=== PATIENT | male | born 1980 | race African-American/Black ===

== ENCOUNTER 2019-10-17 11:50 | Emergency (ER) | payer BC, SELFPAY ==
[2019-10-17 11:50] VITALS: BP 90/69; PULSE 93; RESP 18; TEMP 36.4; O2SAT 97; BMI 33.8
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
[2019-10-17] MEDS: Ibuprofen 600 MG Tablet PO (12:51)
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
[2019-10-17 14:37] VITALS: BP 122/66; PULSE 92; RESP 18; O2SAT 98
== END 2019-10-17 14:38 | disposition home or self-care (01) ==
PROVIDERS: Emergency Provider Emergency Medicine; Family Provider Internal Medicine; PCP Internal Medicine
DX: S02.32XA Fracture of orbital floor, left side, initial encounter for closed fracture (principal); Y04.2XXA Assault by strike against or bumped into by another person, initial encounter; Y93.89 Activity, other specified; Z87.891 Personal history of nicotine dependence
CPT/HCPCS: 70486; 99283

== ENCOUNTER 2022-02-01 20:08 | Emergency (ER) | payer BC, SELFPAY ==
[2022-02-01 20:09] VITALS: BP 113/59; PULSE 111; RESP 18; TEMP 36.8; O2SAT 91; BMI 34.0
[2022-02-01 20:19] VITALS: BP 113/59; PULSE 111; RESP 18; TEMP 36.8; O2SAT 91
--- NOTE | 2022-02-01 20:44 | EKG12_ITS ---
Test Reason : DYSRHYTHMIA Blood Pressure : / mmHG Vent. Rate : 101 BPM Atrial Rate : 101 BPM P-R Int : 140 ms QRS Dur : 082 ms QT Int : 366 ms P-R-T Axes : 019 029 004 degrees QTc Int : 474 ms Sinus tachycardia Nonspecific T wave abnormality Abnormal ECG Confirmed by AMI ROBINS, ANIYA ([id number]), editorial clerk LILA AMBRIZ ([id number]) on 02/04/2022 11:00:51 AM Referred By: TL Confirmed By:ANIYA MUELLER MD
--- NOTE | 2022-02-01 20:45 | EDS_ITS ---
HPI <Dr. Wallace Mathew DO - Last Filed: 02/04/22 15:10> History of Present Illness Chief Complaint: General Illness Informant: patient Narrative Narrative: Patient here with significant other 1 week history fever myalgia's initial cough a week ago. Today shortness of breath with exertion. 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 No leg swelling or pain. Been using Tylenol last dose was 2 hours ago. No vomiting or diarrhea. No loss of taste or smell. Nonvaccinated for Covid. No influenza vaccination this year or in the past. Remote tobacco history. Denies any daily medications. He is allergic to shellfish stating causing swelling in the throat. Nondiabetic. PFSH <Dr. Wallace Mathew DO - Last Filed: 02/04/22 15:10> PFSH Medical History no medical history Home Medications NK 02/01/22 [History Last Taken Unknown] Allergy/AdvReac Type Severity Reaction Status Date / Time shellfish derived Allergy Severe Angioedema Verified 02/01/22 20:14 Surgical History no surgical history Social History Smoking Status: Former smoker ROS <Dr. Wallace Mathew DO - Last Filed: 02/04/22 15:10> ROS ED Constitutional Constitutional ED: Reports fever(s); Denies chills or sweats Eyes Eyes: Denies change in vision ENT ENT ED: Denies dysphagia or sore throat Cardiovascular Cardiovascular: Denies chest pain, leg edema, palpitations or racing heartbeat Respiratory/Chest Respiratory/Chest: Reports dyspnea and dyspnea on exertion; Denies cough Gastrointestinal Gastrointestinal: Denies abdominal pain, diarrhea, nausea or vomiting Genitourinary Genitourinary ED: Denies dysuria, hematuria or urinary frequency Musculoskeletal Musculoskeletal: Reports myalgias; Denies back pain, extremity pain or neck pain Integumentary Denies rash or wounds Neurologic Neurologic: Denies headache(s), paresthesias or weakness EXAM <Dr. Wallace Mathew DO - Last Filed: 02/04/22 15:10> Physical Exam Const Vital Signs: 02/01/22 20:09 02/01/22 20:19 02/01/22 20:23 Temperature 98.3 F 98.3 F Temperature Source Temporal Temporal Pulse Rate 111 H 111 H Respiratory Rate 18 18 Respiratory Effort Short of Breath Respiratory Pattern Normal Blood Pressure 113/59 L 113/59 L Blood Pressure Mean 77 77 Pulse Ox 91 91 Oxygen Delivery Method Room Air Room Air 02/01/22 21:14 02/02/22 01:03 Temperature 98 F Temperature Source Temporal Pulse Rate 94 98 Respiratory Rate 21 H 15 Respiratory Effort Respiratory Pattern Blood Pressure 122/78 H Blood Pressure Mean 92 Pulse Ox 92 92 Oxygen Delivery Method Room Air Room Air Positive well nourished and well developed General Appearance ED: well developed and NAD HEENT Reports moist mucous membranes normocephalic and atraumatic Eyes PERRL, EOMs intact bilaterally and conjunctivae normal General Eye ED: Yes normal appearance of both eyes Neck no lymphadenopathy and supple General: Negative for tenderness Chest Wall Chest: Negative for tenderness Resp normal respiratory effort and normal air movement Effort and Inspection: symmetric chest movement; Negative for respiratory distress Cardio regular rhythm and no murmurs Rate: tachycardic Peripheral Pulses: pulses 2+ throughout GI normal to inspection, nondistended, normoactive bowel sounds and non-tender Palpation: Negative for guarding or rebound tenderness present Back/Spine no CVA tenderness and no thoracic nor lumbar tenderness Extremity normal to inspection General Extremety ED: Negative for edema or tenderness General Extremity: Negative for edema Neuro oriented x3 and no sensory deficits noted Sensorium / Orientation: awake and alert Skin no rashes or lesions noted and no wounds <Dr. Adolfo Chong MD - Last Filed: 02/02/22 02:23> Physical Exam Const Vital Signs: 02/01/22 20:09 02/01/22 20:19 02/01/22 20:23 Temperature 98.3 F 98.3 F Temperature Source Temporal Temporal Pulse Rate 111 H 111 H Respiratory Rate 18 18 Respiratory Effort Short of Breath Respiratory Pattern Normal Blood Pressure 113/59 L 113/59 L Blood Pressure Mean 77 77 Pulse Ox 91 91 Oxygen Delivery Method Room Air Room Air 02/01/22 21:14 02/02/22 01:03 Temperature 98 F Temperature Source Temporal Pulse Rate 94 98 Respiratory Rate 21 H 15 Respiratory Effort Respiratory Pattern Blood Pressure 122/78 H Blood Pressure Mean 92 Pulse Ox 92 92 Oxygen Delivery Method Room Air Room Air MDM <Dr. Wallace Mathew DO - Last Filed: 02/04/22 15:10> [facility] MDM Narrative Medical decision making narrative: Patient tachycardic on arrival EKG sinus tachycardia. Reports flulike symptoms for the past week exertional dyspnea today. Denies chest pains. 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 I did pretreat him with Benadryl and Solu-Medrol due to shellfish allergy causing throat swelling. Lab work-up white count 2.7 creatinine 1.26 potassium 3.4 sodium 132 D-dimer returned elevated at 1.36. Rapid Covid testing returned negative. Influenza pending. My wet read reviewed notes multilobar pneumonia changes. Did not appreciate any PE however this is pending read by radiology. With multi lobar infiltrative changes I did send for PCR. His pulse ox trended anywhere from 89 to 92% on reevaluation. Awaiting final CTA read along with PCR to help with disposition. He is in no acute respiratory distress currently. Patient be signed out to night physician. Lab Data Attestation: I reviewed the patient's lab results. Labs: Laboratory Results - last 24 hr 02/01/22 02/01/22 02/01/22 21:00 21:00 21:00 WBC 2.7 L RBC 4.44 L Hgb 13.0 Hct 37.2 L MCV 83.8 MCH 29.3 MCHC 34.9 RDW Std Deviation 38.9 RDW Coeff of Wes 12.8 Plt Count 118 L MPV 9.7 Immature Gran % (Auto) 0.800 Neut % (Auto) 74.3 H Lymph % (Auto) 18.5 L [place] % (Auto) 6.4 Eos % (Auto) 0.0 Baso % (Auto) 0.0 Absolute Neuts (auto) 2.0 Absolute Lymphs (auto) 0.49 L Nucleated RBC % 0 Differential Comment SEE COMMENT Diff Path Review May foll Platelet Estimate SLT DEC RBC Morphology NORM C+C Anisocytosis RARE PT 13.8 INR 1.1 APTT 34.3 D-Dimer Quant (PE/DVT) 1.36 H* Sodium 132 L Potassium 3.4 L Chloride 101 Carbon Dioxide 25.0 Anion Gap 6 BUN 10 Creatinine 1.26 Estim Creat Clear Calc 75.59 Est GFR (MDRD) Af Amer 80 Est GFR (MDRD) Non-Af 66 BUN/Creatinine Ratio 7.9 L Glucose 113 H Calcium 8.1 L Total Bilirubin 0.60 AST 251 H ALT 90 H Alkaline Phosphatase 47 Total Protein 7.1 Albumin 3.3 Globulin 3.8 Albumin/Globulin Ratio 0.9 COVID-19 (ANDREI) 02/01/22 22:25 WBC RBC Hgb Hct MCV MCH MCHC RDW Std Deviation RDW Coeff of Wes Plt Count MPV Immature Gran % (Auto) Neut % (Auto) Lymph % (Auto) [place] % (Auto) Eos % (Auto) Baso % (Auto) Absolute Neuts (auto) Absolute Lymphs (auto) Nucleated RBC % Differential Comment Diff Path Review Platelet Estimate RBC Morphology Anisocytosis PT INR APTT D-Dimer Quant (PE/DVT) Sodium Potassium Chloride Carbon Dioxide Anion Gap BUN Creatinine Estim Creat Clear Calc Est GFR (MDRD) Af Amer Est GFR (MDRD) Non-Af BUN/Creatinine Ratio Glucose Calcium Total Bilirubin AST ALT Alkaline Phosphatase Total Protein Albumin Globulin Albumin/Globulin Ratio COVID-19 (ANDREI) Detected Radiography Diagnostic Testing: Clinical Impression(s) from Imaging Studies Chest CTA 02/01/22 21:55 IMPRESSION: Bilateral multilobar pneumonia with reactive mediastinal and hilar adenopathy. Electronically Signed: Bo Johnson MD at 22:42 EST , EKG Initial EKG: Attestation: I personally reviewed and interpreted this EKG as follows: Comments: Sinus rate of 101, no ST changes isolated T wave version leads III. Nonspecific. <Dr. Adolfo Chong MD - Last Filed: 02/02/22 02:23> [facility] Narrative Medical decision making narrative: Patient checked out to me. His influenza swab was not done correctly so that was repeated and negative. His rapid Covid was negative. His CTA showed bilateral patchy bibasilar infiltrates/pneumonitis without pulmonary embolus or any other acute abnormality. There is mediastinal lymphadenopathy to go with the infiltrates. His PCR for Covid returned positive. Therefore he does not require antibiotics for this, his leukopenia is consistent with Covid as are the clear lungs that the previous physician documented. Patient has been doing very well. He had one episode under Dr. Mathew's care where he transiently apparently desatted to 89%. Throughout the rest of his ED visit under my care, he was at 96-97%. We walked him down the hallway with an N95 on. He did not become dyspneic and did not have oxygen saturations below 93%. He feels relatively good. Therefore do not think he needs to be discharged home with oxygen or steroids which would not be indicated if he is not on oxygen. However with his BMI at 34 and he is on day #7 of illness, he is a candidate for Sotrovimab. He has a pulse oximeter at home. Referred for monoclonal antibody infusion therapy, advised to continue watching his pulse ox and given reasons to return. Discussed with he and his they are comfortable with that plan. Lab Data Attestation: I reviewed the patient's lab results. Labs: Laboratory Results - last 24 hr 02/01/22 02/01/22 02/01/22 21:00 21:00 21:00 WBC 2.7 L RBC 4.44 L Hgb 13.0 Hct 37.2 L MCV 83.8 MCH 29.3 MCHC 34.9 RDW Std Deviation 38.9 RDW Coeff of Wes 12.8 Plt Count 118 L MPV 9.7 Immature Gran % (Auto) 0.800 Neut % (Auto) 74.3 H Lymph % (Auto) 18.5 L [place] % (Auto) 6.4 Eos % (Auto) 0.0 Baso % (Auto) 0.0 Absolute Neuts (auto) 2.0 Absolute Lymphs (auto) 0.49 L Nucleated RBC % 0 Differential Comment SEE COMMENT Diff Path Review May foll Platelet Estimate SLT DEC RBC Morphology NORM C+C Anisocytosis RARE PT 13.8 INR 1.1 APTT 34.3 D-Dimer Quant (PE/DVT) 1.36 H* Sodium 132 L Potassium 3.4 L Chloride 101 Carbon Dioxide 25.0 Anion Gap 6 BUN 10 Creatinine 1.26 Estim Creat Clear Calc 75.59 Est GFR (MDRD) Af Amer 80 Est GFR (MDRD) Non-Af 66 BUN/Creatinine Ratio 7.9 L Glucose 113 H Calcium 8.1 L Total Bilirubin 0.60 AST 251 H ALT 90 H Alkaline Phosphatase 47 Total Protein 7.1 Albumin 3.3 Globulin 3.8 Albumin/Globulin Ratio 0.9 COVID-19 (ANDREI) 02/01/22 22:25 WBC RBC Hgb Hct MCV MCH MCHC RDW Std Deviation RDW Coeff of Wes Plt Count MPV Immature Gran % (Auto) Neut % (Auto) Lymph % (Auto) [place] % (Auto) Eos % (Auto) Baso % (Auto) Absolute Neuts (auto) Absolute Lymphs (auto) Nucleated RBC % Differential Comment Diff Path Review Platelet Estimate RBC Morphology Anisocytosis PT INR APTT D-Dimer Quant (PE/DVT) Sodium Potassium Chloride Carbon Dioxide Anion Gap BUN Creatinine Estim Creat Clear Calc Est GFR (MDRD) Af Amer Est GFR (MDRD) Non-Af BUN/Creatinine Ratio Glucose Calcium Total Bilirubin AST ALT Alkaline Phosphatase Total Protein Albumin Globulin Albumin/Globulin Ratio COVID-19 (ANDREI) Detected Radiography Diagnostic Testing: Clinical Impression(s) from Imaging Studies Chest CTA 02/01/22 21:55 IMPRESSION: Bilateral multilobar pneumonia with reactive mediastinal and hilar adenopathy. Electronically Signed: Bo Johnson MD at 22:42 EST Reading Location ID and State: [address] [place] [address] Tel , Service support , EKG Initial EKG: Attestation: I personally reviewed and interpreted this EKG as follows: Interpretation: No Acute Injury Pattern, Sinus Tachycardia and - (Flattened T waves diffusely) Discharge Plan Triage Chief Complaint: General Illness ED Provider: Wallace Mathew Dx/Rx/DC Orders Clinical Impression: Pneumonia due to 2019 novel coronavirus Instructions: Coronavirus Disease 2019 (COVID-19): Caring for Yourself or Others Prescriptions: No Action NK RF: 0 Other Ambulatory Orders: COVID Outpatient Monoclonal Antibody Referral (Routine) Timeframe: 1 Day Facility: [facility] - Location: [facility] Ordered By: Dr. Adolfo Chong Primary Care Provider: Pedro Owens Referrals: Pedro Owens MD [Primary Care Provider] - Activity Restrictions/Additional Instructions: Try to get a home portable pulse oximeter and closely watch your oxygen levels periodically. If you stay below 90% for more than a minute or so, and/or you are feeling like your breathing is getting worse, return to the emergency department for further evaluation. You are a candidate for monoclonal antibody infusion therapy, see the attached instructions for more information. They will call you concerning when they want you to come to the clinic to get the infusion which is a one-time dose to help protect you from getting more ill and becoming hospitalized with life- threatening illness due to Covid given your risk for worsening. Disposition Disposition: Home, Self Care Discharge Date/Time: 02/02/22 02:34
[2022-02-01] MEDS: DiphenhydrAMINE 50 MG/ML Syringe IV (21:02)
[2022-02-01] MEDS: MethylPREDNISolone 125 MG/2 ML Vial IV (21:02)
[2022-02-01 21:14] VITALS: BP 122/78; PULSE 94; RESP 21; TEMP 36.6; O2SAT 92
[2022-02-01 21:20] LABS: Absolute Lymphocyte Count 0.49 X10^3/uL (0.83-4.51); Hematocrit 37.2 % (40-54); Lymphocyte # 0.49 X10^3/ul (0.83-4.51); Lymphocyte % 18.5 % (19-41); Mean Corp Hgb Conc 34.9 g/dL (32-36); Mean Corpuscular Hgb 29.3 pg (27.0-32.0); Mean Corpuscular Volume 83.8 fL (80-94); Mean Platelet Vol. 9.7 fl (6.2-12.0); Monocyte# 0.17 X10^3/uL; Monocyte% 6.4 % (0-10); NRBC Flagged by Analyzer 0 % (0-5); Neutrophil # 1.97 X10^3/uL (2.7-7.7); Neutrophil % 74.3 % (47-70); POSITIVE DIFFERENTIAL YES; Platelet Count 118 K/mm3 (150-450); RBC Distribution Width CV 12.8 % (11.6-14.6); RBC Distribution Width SD 38.9 fl (35.1-43.9); Red Blood Count 4.44 M/mm3 (4.6-6.2); White Blood Count 2.7 K/mm3 (4.4-11.0)
[2022-02-01 21:22] LABS: Differential Indicated SCAN CRITERIA MET
[2022-02-01 21:30] LABS: International Normalized Ratio 1.1; Prothrombin Time (Protime)PT. 13.8 SECONDS (11.7-14.9)
[2022-02-01 21:31] LABS: Partial Thromboplast Time 34.3 Seconds (24.1-36.2)
[2022-02-01 21:44] LABS: Platelet Estimate SLT DEC (ADEQ)
[2022-02-01 21:45] LABS: ALB/GLOB Ratio 0.9 RATIO (0.9-2.4); AST(SGOT) 251 U/L (15-37); Alanine Aminotransfer ALT/SGPT 90 U/L (16-61); Albumin, Serum 3.3 g/dL (3.2-5.0); Alkaline Phosphatase 47 U/L (45-117); Anion Gap 6 (5-15); BUN 10 mg/dL (7-18); BUN/Creat Ratio 7.9 RATIO (10-20); Calcium,Total 8.1 mg/dL (8.5-10.1); Chloride 101 mmol/L (98-107); Creatinine, Serum 1.26 mg/dL (0.70-1.30); EST Glomerular Filtration Rate 66 mL/min (>60); Est Glom Filt Rate - Afr Amer 80 mL/min (>60); Estimated Creatinine Clearance 75.59 ml/min; Globulin 3.8 g/dL (2.2-4.2); Glucose 113 mg/dL (74-106); Potassium 3.4 mmol/L (3.5-5.1); Protein, Total 7.1 g/dL (6.4-8.2); Sodium Level 132 mmol/L (136-145)
[2022-02-01 21:47] LABS: Anisocytosis RARE; Red Cell Morphology NORM C+C NORMAL (NORM C&C)
[2022-02-01 21:52] LABS: D-Dimer Quantitative (DVT/PE) 1.36 FEU/ug/m (0.27-0.49)
--- NOTE | 2022-02-01 21:55 | CT_ITS ---
EXAM: CT ANGIOGRAPHY CHEST WITHOUT AND WITH INTRAVENOUS CONTRAST CLINICAL INDICATION: dyspnea TECHNIQUE: Helically acquired angiography images were obtained of the chest without and with intravenous contrast. CTDIvol = ( 14.89 ) mGy, DLP = ( 520.13 ) mGycm This CT exam was performed using one or more of the following dose reduction techniques: automated exposure control, adjustment of the mA and/or kV according to patient size, and/or use of iterative reconstruction technique. This report was created using [employer] report generation technology. MIP reconstructed images were created and reviewed. CONTRAST: IV 100mL [id number] COMPARISON: None. FINDINGS: PULMONARY ARTERIES: Unremarkable. Normal in caliber. No evidence of pulmonary embolism. AORTA: Unremarkable. Normal in caliber. No evidence of dissection. GREAT VESSELS OF AORTIC ARCH: Unremarkable. Normal in caliber. No evidence of dissection. LUNGS AND PLEURAL SPACES: Bilateral multilobar pneumonia. No mass. No pleural effusion or thickening. HEART: Unremarkable. Heart size is normal. No pericardial effusion. No signs of right heart strain, ratio of right ventricle to left ventricle measures less than 1. MEDIASTINUM: Reactive mediastinal and hilar adenopathy. Esophagus is unremarkable. No hiatal hernia. THYROID: Unremarkable. No thyroid lesions. BONES/JOINTS: Unremarkable. No suspicious lytic or blastic abnormality. CT/CTA Chest W/WO Contrast IMPRESSION: Bilateral multilobar pneumonia with reactive mediastinal and hilar adenopathy. Electronically Signed: Bo Johnson MD at 22:42 EST ,
[2022-02-02 01:03] VITALS: PULSE 98; RESP 15; O2SAT 92
[2022-02-02 01:45] VITALS: O2SAT 97
[2022-02-02 02:33] VITALS: BP 134/78; PULSE 91; RESP 20; O2SAT 95
[2022-02-05 10:17] LABS: Pathologist Review Reviewed
== END 2022-02-02 02:34 | disposition home or self-care (01) ==
PROVIDERS: Emergency Provider Emergency Medicine; PCP Internal Medicine; Visit Provider Emergency Medicine
DX: U07.1 COVID-19 (principal); J12.82 Pneumonia due to coronavirus disease 2019; Z87.891 Personal history of nicotine dependence
CPT/HCPCS: 71275; 80053; 85025; 85379; 85610; 85730; 87426; 87635; 87804; 93005; 96361; 96374; 96375; 99285; J7030; Q9967; U0003; U0005

== ENCOUNTER 2022-02-04 20:38 | Inpatient (IN) | payer BC, SELFPAY ==
[2022-02-04 20:40] VITALS: BP 126/66; PULSE 112; RESP 18; TEMP 36.4; O2SAT 95; BMI 34.0
[2022-02-04 20:51] VITALS: O2SAT 77
[2022-02-04 20:56] VITALS: O2SAT 95
[2022-02-04 20:58] VITALS: O2SAT 77
--- NOTE | 2022-02-04 21:30 | RAD_ITS ---
STUDY: X-RAY CHEST REASON FOR EXAM: Male, 41 years old. CHEST PAIN PT WAS DX WITH COVID, INCREASED SOB AND HOME PULSE OX STATED HIS PULSE OX WAS LOW covid TECHNIQUE: XR Chest 1 View COMPARISON: Prior comparison studies are not available for review at this time. FINDINGS: There is no demonstrated pleural abnormality. There is bilateral infiltrate. There is an elevated right hemidiaphragm. Normal size heart. Normal mediastinum and benita. Normal visualized pulmonary arteries. There is atherosclerotic calcification of the aortic arch with tortuosity. There are diffuse degenerative changes of the visualized thoracic spine. There is degenerative osteoarthritis of the bilateral shoulders. There is no demonstrated abnormality of the visualized soft tissue structures of the upper abdomen. RAD/Chest 1 View (Portable) IMPRESSION: There is bilateral infiltrate. Electronically Signed: Sebastian Rudd MD at 21:44 EST ,
--- NOTE | 2022-02-04 21:32 | ED.VIS.DYS ---
HPI <Dr. Eder Loco MD - Last Filed: 02/06/22 09:19> History of Present Illness Chief Complaint: Shortness of Breath Informant: patient and spouse/S.O. Narrative Narrative: Patient came in today because he got an O2 sat device. When he walked around it was reading down in the 70s. He is on day 12 of Covid symptoms. He states he is not worsening but is not improving. He was seen here about 3 or 4 days ago. He was not hypoxic at the time so was not started on steroids. He did call about monoclonal therapy but they stated that he was not a candidate likely due to timing. He has not been vaccinated. 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 He has no family history. He has no leg pain or swelling. He has no chest pain. He has no hemoptysis. He did have a CTA on his prior visit. What really prompted the visit is when his oxygen level dropped so low after getting his saturation monitor today. Patient has no chronic conditions other than GERD. medications pantoprazole Allergy to selfish No recent surgeries Former smoker, works full-time [facility] <Dr. Eder Loco MD - Last Filed: 02/06/22 09:19> [facility] Medical History Former smoker GERD (gastroesophageal reflux disease) LILIBETH (obstructive sleep apnea) Home Medications pantoprazole [Protonix] 40 mg PO DAILY 02/05/22 [History Last Taken Unknown] Allergy/AdvReac Type Severity Reaction Status Date / Time shellfish derived Allergy Severe Angioedema Verified 02/01/22 20:14 Social History Smoking Status: Former smoker ROS <Dr. Eder Loco MD - Last Filed: 02/06/22 09:19> ROS ED Constitutional Constitutional ED: Reports chills and fever(s) Eyes Eyes: Denies blurry vision or change in vision ENT ENT ED: Denies rhinorrhea or sore throat Cardiovascular Cardiovascular: Denies chest pain or palpitations Respiratory/Chest Respiratory/Chest: Reports cough and dyspnea; Denies sputum Gastrointestinal Gastrointestinal: Reports other Details: Mild decrease in appetite but he is able to eat and drink well. ; Denies abdominal pain, diarrhea, nausea or vomiting Genitourinary Genitourinary ED: Denies dysuria Musculoskeletal Musculoskeletal: Reports myalgias Integumentary Denies rash Neurologic Neurologic: Reports headache(s); Denies paresthesias or weakness Psychiatric Psychiatric: Reports anxiety Endocrine Endocrinology: Denies polydipsia or polyuria Hematologic/Lymphatic Hematologic/Lymphatic: Denies easy bruising Allergic/Immunologic Allergic/Immunologic ED: Denies urticaria EXAM <Dr. Eder Loco MD - Last Filed: 02/06/22 09:19> Physical Exam Const Vital Signs: 02/04/22 20:40 02/04/22 20:51 02/04/22 20:56 Temperature 97.5 F L Temperature Source Temporal Pulse Rate 112 H Respiratory Rate 18 Respiratory Effort Short of Breath Respiratory Depth Normal Respiratory Pattern Normal Blood Pressure 126/66 H Blood Pressure Mean 86 Pulse Ox 95 95 Oxygen Delivery Method Room Air Room Air Nasal Cannula Oxygen Flow Rate (L/min) Fraction of Inspired Oxygen (FIO2) 6 02/04/22 20:58 02/04/22 22:47 02/05/22 00:00 Temperature Temperature Source Pulse Rate 105 H Respiratory Rate 17 17 Respiratory Effort Respiratory Depth Respiratory Pattern Blood Pressure 120/65 Blood Pressure Mean 83 Pulse Ox 77 94 Oxygen Delivery Method Room Air Nasal Cannula Room Air Oxygen Flow Rate (L/min) 4 Fraction of Inspired Oxygen (FIO2) Positive well nourished and well developed Constitutional Narrative: Considering his history, I expected this patient to look ill when I walked in the room. However, the patient actually looks quite good. He is comfortable. His breathing is nonlabored. Carries on a normal conversation. He is not toxic at all. General Appearance ED: well developed and NAD HEENT Reports moist mucous membranes atraumatic Eyes General Eye ED: Negative for pale conjunctiva Neck no meningeal signs and no JVD Resp normal respiratory effort Resp Narrative: Breathing well on 6 L is normal. I turned him down to 4 while I was in the room. He stayed at 94 to 96%. Were turning him down to 2 to see how he does. When he first walked in, he was 77% but came up quickly on oxygen. He does have some coarse breath sounds bilaterally consistent with typical findings on Covid exam Auscultation: rhonchi; Negative for wheezes Cardio regular rate, regular rhythm and no murmurs GI non-tender Palpation: soft Back/Spine normal to inspection Extremity normal to inspection Extremity Narrative: No tenderness, cords, edema, asymmetry or distended veins. General Extremety ED: Negative for edema or tenderness General Extremity: Negative for edema Neuro Sensorium / Orientation: alert Psych mental status grossly normal Skin Rashes: no rashes <Dr. Terrence Domingo DO - Last Filed: 02/05/22 00:55> Physical Exam Const Vital Signs: 02/04/22 20:40 02/04/22 20:51 02/04/22 20:56 Temperature 97.5 F L Temperature Source Temporal Pulse Rate 112 H Respiratory Rate 18 Respiratory Effort Short of Breath Respiratory Depth Normal Respiratory Pattern Normal Blood Pressure 126/66 H Blood Pressure Mean 86 Pulse Ox 95 95 Oxygen Delivery Method Room Air Room Air Nasal Cannula Oxygen Flow Rate (L/min) Fraction of Inspired Oxygen (FIO2) 6 02/04/22 20:58 02/04/22 22:47 02/05/22 00:00 Temperature Temperature Source Pulse Rate 105 H Respiratory Rate 17 17 Respiratory Effort Respiratory Depth Respiratory Pattern Blood Pressure 120/65 Blood Pressure Mean 83 Pulse Ox 77 94 Oxygen Delivery Method Room Air Nasal Cannula Room Air Oxygen Flow Rate (L/min) 4 Fraction of Inspired Oxygen (FIO2) MDM <Dr. Eder Loco MD - Last Filed: 02/06/22 09:19> MDM MDM Narrative Medical decision making narrative: We tried walking the patient on 4 L. He desatted to about 81%. However even on room air he is normal saturations just sitting in bed. He is not having chest pain. No hemoptysis. No history of DVT or PE. He had a CTA just several days ago. I will redo some blood work here. I did look at his x-ray that shows bilateral infiltrative process consistent with Covid. I believe this patient has progression of disease. He is unvaccinated with positive Covid PCR with some mild progressive hypoxia. He overall looks surprisingly well. I did discuss case with the hospitalist. Because of his decreased saturations he will have to come in the hospital. Because of his significant worsening in O2 sats, it was requested to do CTA to look for progression or new disease or pulmonary embolus. Patient is turned over to oncoming physician pending the study but the plan is already to admit him and hospitalist team has seen him. Lab Data Attestation: I reviewed the patient's lab results. Labs: Laboratory Results - last 24 hr 02/04/22 02/04/22 22:44 22:44 WBC 4.1 L RBC 4.63 Hgb 13.2 Hct 39.5 L MCV 85.3 MCH 28.5 MCHC 33.4 RDW Std Deviation 41.6 RDW Coeff of Wes 13.3 Plt Count 149 L MPV 9.2 Immature Gran % (Auto) 1.200 H Neut % (Auto) 77.1 H Lymph % (Auto) 15.4 L [place] % (Auto) 6.3 Eos % (Auto) 0.0 Baso % (Auto) 0.0 Absolute Neuts (auto) 3.2 Absolute Lymphs (auto) 0.63 L Nucleated RBC % 0 Sodium 134 L Potassium 3.6 Chloride 101 Carbon Dioxide 25.0 Anion Gap 8 BUN 13 Creatinine 1.05 Estim Creat Clear Calc 90.71 Est GFR (MDRD) Af Amer 99 Est GFR (MDRD) Non-Af 82 BUN/Creatinine Ratio 12.4 Glucose 99 Calcium 8.0 L Troponin I High Sens 9 Radiography Diagnostic Testing: Clinical Impression(s) from Imaging Studies Chest X-Ray 02/04/22 21:30 IMPRESSION: There is bilateral infiltrate. Electronically Signed: Sebastian Rudd MD at 21:44 EST , Chest CTA 02/04/22 23:20 IMPRESSION: 1. No CTA demonstrated pulmonary embolism or arterial dissection. 2. Multifocal pneumonia. Electronically Signed: Kassandra Limon MD at 0:49 EST , EKG Initial EKG: Comments: EKG done for dyspnea read by me shows sinus rhythm with tachycardic rate at 111. No ventricular ectopy. Diffuse nonspecific ST and T wave change but no sign of infarct or ischemia. KS interval, QRS duration and QTc normal. EKG is similar to prior of 01 February 2022. <Dr. Terrence Domingo, DO - Last Filed: 03/08/22 00:55> MDM MDM Narrative Medical decision making narrative: Patient signed out to me for monitoring as he is pending CT of the chest requested by the hospitalist. This does not show any pulmonary emboli. There is multifocal pneumonia. At this point the patient is stable for admission to the medical floor. Lab Data Attestation: I reviewed the patient's lab results. Labs: Laboratory Results - last 24 hr 02/04/22 02/04/22 22:44 22:44 WBC 4.1 L RBC 4.63 Hgb 13.2 Hct 39.5 L MCV 85.3 MCH 28.5 MCHC 33.4 RDW Std Deviation 41.6 RDW Coeff of Wes 13.3 Plt Count 149 L MPV 9.2 Immature Gran % (Auto) 1.200 H Neut % (Auto) 77.1 H Lymph % (Auto) 15.4 L [place] % (Auto) 6.3 Eos % (Auto) 0.0 Baso % (Auto) 0.0 Absolute Neuts (auto) 3.2 Absolute Lymphs (auto) 0.63 L Nucleated RBC % 0 Sodium 134 L Potassium 3.6 Chloride 101 Carbon Dioxide 25.0 Anion Gap 8 BUN 13 Creatinine 1.05 Estim Creat Clear Calc 90.71 Est GFR (MDRD) Af Amer 99 Est GFR (MDRD) Non-Af 82 BUN/Creatinine Ratio 12.4 Glucose 99 Calcium 8.0 L Troponin I High Sens 9 Radiography Diagnostic Testing: Clinical Impression(s) from Imaging Studies Chest X-Ray 02/04/22 21:30 IMPRESSION: There is bilateral infiltrate. Electronically Signed: Sebastian Rudd MD at 21:44 EST , Chest CTA 02/04/22 23:20 IMPRESSION: 1. No CTA demonstrated pulmonary embolism or arterial dissection. 2. Multifocal pneumonia. Electronically Signed: Kassandra Limon MD at 0:49 EST , Discharge Plan Dx/Rx/DC Orders Clinical Impression: Pneumonia due to 2019 novel coronavirus, Respiratory failure with hypoxia Disposition Disposition: Acute Care Hospital [facility]
[2022-02-04 21:57] VITALS: O2SAT 94
--- NOTE | 2022-02-04 21:58 | ED.RN ---
attempt to d/c patient on o2. pt was 90% without 02 while at rest. pt was 85% with extertion. pt dropped to 81% while on 4 Liters o2 with exertion. results discussed with dr ye. skyla brewer rn [id number]
--- NOTE | 2022-02-04 22:15 | EKG12_ITS ---
Test Reason : SOB Blood Pressure : / mmHG Vent. Rate : 111 BPM Atrial Rate : 111 BPM P-R Int : 126 ms QRS Dur : 084 ms QT Int : 340 ms P-R-T Axes : 023 026 001 degrees QTc Int : 462 ms Sinus tachycardia Nonspecific T wave abnormality Abnormal ECG Confirmed by AMI ROBINS, ANIYA ([id number]), newspaper editor LILA AMBRIZ ([id number]) on 02/05/2022 10:00:04 AM Referred By: PL Confirmed By:ANIYA MUELLER MD
[2022-02-04 22:47] VITALS: BP 120/65; PULSE 105; RESP 17; O2SAT 94
[2022-02-04] MEDS: dexAMETHasone 4 MG Tablet 6 MG PO (22:47)
[2022-02-04 23:10] LABS: Anion Gap 8 (5-15); BUN 13 mg/dL (7-18); BUN/Creat Ratio 12.4 RATIO (10-20); Chloride 101 mmol/L (98-107); Creatinine, Serum 1.05 mg/dL (0.70-1.30); EST Glomerular Filtration Rate 82 mL/min (>60); Est Glom Filt Rate - Afr Amer 99 mL/min (>60); Estimated Creatinine Clearance 90.71 ml/min; Glucose 99 mg/dL (74-106); Potassium 3.6 mmol/L (3.5-5.1); Sodium Level 134 mmol/L (136-145); Troponin-I HS 9 pg/mL (3.0-78.0)
--- NOTE | 2022-02-04 23:20 | CT_ITS ---
STUDY: CTA CHEST REASON FOR EXAM: Male, 41 years old patient with hypoxia and COVID infection. RADIATION DOSAGE (If Supplied By Facility): CTDIvol = ( 16.63 ) mGy, DLP = ( 512.50 ) mGycm TECHNIQUE: The examination was performed with the intravenous administration of 100 mL of Isovue-370. Post-processing of the angiographic images was performed, with multiplanar reformation and 3D reconstruction. Individualized dose optimization techniques were used for this CT. COMPARISON: CTA of the chest dated 02/01/2022. FINDINGS: Normal enhancement of the main pulmonary artery and right and left pulmonary arteries. There is limited enhancement of the bilateral peripheral pulmonary arteries. There is no demonstrated pulmonary embolism. There is prominence of the main pulmonary arteries with peripheral pulmonary vascular congestion. Normal thoracic aorta and visualized great vessels. There is no demonstrated aortic dissection. Normal heart and pericardium. There are enlarged subcarinal lymph nodes with the milagro mass measuring 4.5 x 3.0 x 1.8 cm. There are multiple enlarged left-sided hilar lymph nodes. Normal visualized trachea and bronchi. The lungs are well expanded. There are multilevel areas of airspace consolidation throughout both lungs consistent with multifocal pneumonia. This appears to have worsened since the previous CT. Normal pleura. Normal chest wall structures. Normal osseous structures. Normal visualized upper abdomen. CT/CTA Chest W/WO Contrast IMPRESSION: 1. No CTA demonstrated pulmonary embolism or arterial dissection. 2. Multifocal pneumonia. Electronically Signed: Kassandra Limon MD at 0:49 EST ,
[2022-02-04 23:36] LABS: Absolute Lymphocyte Count 0.63 X10^3/uL (0.83-4.51); Absolute Neutrophil Count 3.2 X10^3/uL (2.0-7.7); Hematocrit 39.5 % (40-54); Hemoglobin 13.2 g/dL (13.0-16.5); Lymphocyte # 0.63 X10^3/ul (0.83-4.51); Lymphocyte % 15.4 % (19-41); Mean Corp Hgb Conc 33.4 g/dL (32-36); Mean Corpuscular Hgb 28.5 pg (27.0-32.0); Mean Corpuscular Volume 85.3 fL (80-94); Mean Platelet Vol. 9.2 fl (6.2-12.0); Monocyte# 0.26 X10^3/uL; Monocyte% 6.3 % (0-10); NRBC Flagged by Analyzer 0 % (0-5); Neutrophil # 3.16 X10^3/uL (2.7-7.7); Neutrophil % 77.1 % (47-70); POSITIVE MORPHOLOGY YES; Platelet Count 149 K/mm3 (150-450); RBC Distribution Width CV 13.3 % (11.6-14.6); RBC Distribution Width SD 41.6 fl (35.1-43.9); Red Blood Count 4.63 M/mm3 (4.6-6.2); White Blood Count 4.1 K/mm3 (4.4-11.0)
[2022-02-04 23:42] LABS: Differential Indicated SCAN CRITERIA MET
--- NOTE | 2022-02-04 23:43 | PCM.HP.STD ---
Documented by User: ARCELIA Mondragon 02/04/22 23:55 HPI - General General Date of Admission: 02/04/22 Date of Service: 02/04/22 Chief Complaint: Covid 19 HPI Narrative AMIRA COELHO, is a 41 M who presents with complaints of increasing shortness of breath. Patient was seen in the ER approximately 3 days ago for a 1 week history of myalgias, fever and onset of shortness of breath with exertion. At that time he was diagnosed with COVID-19 and was sent home as patient was not hypoxic at that time. Patient represents to the ER tonight stating that he obtained a pulse ox following his last ER visit and was noted to be in the 60s to 70% SPO2 range at home. Patient was 77% on room air upon arrival to ER and was placed on oxygen. Patient currently on 4 L nasal cannula oxygen, O2 sat 94% however patient does desat frequently and rapidly with exertion. Patient is day 12 from onset of symptoms and is unvaccinated against Covid. Patient did receive dexamethasone 6 mg x 1 in ER. Patient reports acid reflux and obstructive sleep apnea is his only medical history. [facility] Medical History Former smoker GERD (gastroesophageal reflux disease) LILIBETH (obstructive sleep apnea) Home Medications NK 02/01/22 [History Last Taken Unknown] Allergy/AdvReac Type Severity Reaction Status Date / Time shellfish derived Allergy Severe Angioedema Verified 02/01/22 20:14 Surgical History no surgical history no surgical history Social History Smoking Status: Former smoker ROS Constitutional Constitutional: Reports chills, fever(s) and malaise; Denies anorexia, fatigue or weakness Cardiovascular Cardiovascular: Denies chest pain, edema, palpitations or syncope Respiratory/Chest Respiratory/Chest: Reports cough, dyspnea on exertion, shortness of breath with exertion and tachypnea Gastrointestinal Gastrointestinal: Denies abdominal pain, constipation, diarrhea, nausea or vomiting Genitourinary Genitourinary: Denies dysuria Musculoskeletal Musculoskeletal: Denies back pain, extremity pain, joint pain or joint stiffness Integumentary Integumentary: Denies dry skin Neurologic Neurologic: Denies abnormal gait, abnormal speech, confusion, dizziness or focal weakness Psychiatric Psychiatric: Denies anxiety or depression Endocrine Endocrinology: Denies change in body appearance Hematologic/Lymphatic Hematologic/Lymphatic: Denies anemia Vital Signs Vital Signs Vital Signs: 02/04/22 20:40 02/04/22 20:51 02/04/22 20:56 Temperature 97.5 F L Temperature Source Temporal Pulse Rate 112 H Respiratory Rate 18 Respiratory Effort Short of Breath Respiratory Depth Normal Respiratory Pattern Normal Blood Pressure 126/66 H Blood Pressure Mean 86 Pulse Ox 95 95 Oxygen Delivery Method Room Air Room Air Nasal Cannula Oxygen Flow Rate (L/min) Fraction of Inspired Oxygen (FIO2) 6 02/04/22 20:58 02/04/22 22:47 Temperature Temperature Source Pulse Rate 105 H Respiratory Rate 17 Respiratory Effort Respiratory Depth Respiratory Pattern Blood Pressure 120/65 Blood Pressure Mean 83 Pulse Ox 77 94 Oxygen Delivery Method Room Air Nasal Cannula Oxygen Flow Rate (L/min) 4 Fraction of Inspired Oxygen (FIO2) Weight Weight: 230 lb Body Mass Index (BMI) 34.0 Physical Exam Const alert, oriented x3 and no apparent distress General Appearance: cooperative HEENT normocephalic and head/scalp atraumatic Eyes conjunctivae normal and no scleral icterus Neck no lymphadenopathy and supple General: trachea midline Resp normal respiratory effort and normal air movement Effort and Inspection: able to speak in complete sentences and symmetric chest movement Auscultation: diminished lung sounds Cardio regular rate, regular rhythm, S1 normal heart sound, S2 normal heart sound and peripheral pulses 2+ throughout Rate: tachycardic GI normal to inspection, nondistended, normoactive bowel sounds, soft to palpation and non-tender Extremity normal capillary refill and no clubbing, cyanosis or edema General Extremity: no tenderness to palpation of joints or extremities Skin General Skin Exam: no breakdown and turgor normal Lesions: no lesions Rashes: no rashes Neuro no focal motor deficits and no sensory deficits noted Speech: speech normal Motor Exam: Negative for general weakness Psych thought process normal, cooperative and affect normal Appearance: appropriate Results Lab / Micro Data Result Diagrams: 02/05/22 02:30 02/05/22 02:30 Labs: Laboratory Results - last 24 hr 02/04/22 22:44: WBC 4.1 L, RBC 4.63, Hgb 13.2, Hct 39.5 L, MCV 85.3, MCH 28.5, MCHC 33.4, RDW Std Deviation 41.6, RDW Coeff of Wes 13.3, Plt Count 149 L, MPV 9.2, Immature Gran % (Auto) 1.200 H, Neut % (Auto) 77.1 H, Lymph % (Auto) 15.4 L, [place] % (Auto) 6.3, Eos % (Auto) 0.0, Baso % (Auto) 0.0, Absolute Neuts (auto) 3.2, Absolute Lymphs (auto) 0.63 L, Nucleated RBC % 0 02/04/22 22:44: Sodium 134 L, Potassium 3.6, Chloride 101, Carbon Dioxide 25.0, Anion Gap 8, BUN 13, Creatinine 1.05, Estim Creat Clear Calc 90.71, Est GFR (MDRD) Af Amer 99, Est GFR (MDRD) Non-Af 82, BUN/Creatinine Ratio 12.4, Glucose 99, Calcium 8.0 L, Troponin I High Sens 9 Radiology Impression Chest X-Ray 02/04/22 21:30 IMPRESSION: There is bilateral infiltrate. Electronically Signed: Sebastian Rudd MD at 21:44 EST Reading Location ID and State: [facility] / [place] , Service support , Assessment & Plan Assessment/Plan (1) Pneumonia due to 2019 novel coronavirus: (2) Respiratory failure with hypoxia: QUALIFIERS: Chronicity: acute Qualified Code(s): J96.01 - Acute respiratory failure with hypoxia PLAN: 1. Acute respiratory failure with hypoxia secondary to COVID-19 pneumonia -Admit to [facility] -BNP, CPK, CRP, fibrinogen, LDH, procalcitonin ordered -CBC and BMP ordered for a.m. -Oxygen per protocol -Encourage incentive spirometry -Regular diet -Consult pulmonary medicine -Scheduled DuoNeb and as needed albuterol breathing treatments ordered -Covid precautions ordered -Intake and output with daily weights -Dexamethasone IV 6 mg daily -Subcu Lovenox twice daily ordered per protocol 2. GERD -We will continue Protonix p.o. 3. Obstructive sleep apnea -CPAP ordered DVT prophylaxis-subcu Lovenox This patient was seen by Ramandeep Wells NP-C under the supervision of Dr. Mead. 29 minutes spent in clinical coordination of patient's plan of care. Documented by User: Dr. Guru Mead MD 02/05/22 06:53 HPI - General General Date of Admission: 02/04/22 [facility] Medical History Former smoker GERD (gastroesophageal reflux disease) LILIBETH (obstructive sleep apnea) Home Medications NK 02/01/22 [History Last Taken Unknown] Allergy/AdvReac Type Severity Reaction Status Date / Time shellfish derived Allergy Severe Angioedema Verified 02/01/22 20:14 Surgical History no surgical history Social History Smoking Status: Former smoker Results Lab / Micro Data Result Diagrams: 02/05/22 02:30 02/05/22 02:30 Charges/Coding Addendum Addendum: Seen and examined and agree with above assessment and plan
[2022-02-05] VITALS (20 sets, daily range): BP systolic 109–133; BP diastolic 59–72; PULSE 84–113; RESP 16–24; TEMP 36.6–37; O2SAT 87–99; BMI 33.0
[2022-02-05] MEDS: 0.9% Saline Lock 10 ML Syringe IV ×2 (02:02→09:11)
[2022-02-05 02:38] LABS: Absolute Lymphocyte Count 0.38 X10^3/uL (0.83-4.51); Absolute Neutrophil Count 3.4 X10^3/uL (2.0-7.7); Hemoglobin 13.4 g/dL (13.0-16.5); Lymphocyte # 0.38 X10^3/ul (0.83-4.51); Lymphocyte % 9.7 % (19-41); Mean Corp Hgb Conc 34.4 g/dL (32-36); Mean Corpuscular Hgb 28.7 pg (27.0-32.0); Mean Corpuscular Volume 83.5 fL (80-94); Mean Platelet Vol. 9.6 fl (6.2-12.0); Monocyte# 0.15 X10^3/uL; Monocyte% 3.8 % (0-10); NRBC Flagged by Analyzer 0 % (0-5); Neutrophil # 3.36 X10^3/uL (2.7-7.7); POSITIVE DIFFERENTIAL YES; POSITIVE MORPHOLOGY YES; Platelet Count 168 K/mm3 (150-450); RBC Distribution Width CV 13.2 % (11.6-14.6); RBC Distribution Width SD 40.3 fl (35.1-43.9); Red Blood Count 4.67 M/mm3 (4.6-6.2); White Blood Count 3.9 K/mm3 (4.4-11.0)
[2022-02-05 02:45] LABS: Differential Indicated SCAN CRITERIA MET
[2022-02-05 02:59] LABS: BNP,B-Type NATRIURETIC PEPTIDE 8.5 pg/mL (0-100)
[2022-02-05 03:00] LABS: Fibrinogen 646 mg/dl (203-444)
[2022-02-05 03:02] LABS: Procalcitonin 0.25 ng/mL (0.00-0.09)
[2022-02-05 03:03] LABS: Anion Gap 6 (5-15); BUN 13 mg/dL (7-18); BUN/Creat Ratio 11.7 RATIO (10-20); Calcium,Total 8.6 mg/dL (8.5-10.1); Chloride 103 mmol/L (98-107); Creatinine, Serum 1.11 mg/dL (0.70-1.30); EST Glomerular Filtration Rate 77 mL/min (>60); Est Glom Filt Rate - Afr Amer 93 mL/min (>60); Estimated Creatinine Clearance 85.81 ml/min; Glucose 117 mg/dL (74-106); Potassium 4.3 mmol/L (3.5-5.1); Sodium Level 134 mmol/L (136-145)
[2022-02-05 03:47] LABS: CPK Total, Creatine Kinase 1393 U/L (39-308); LDH 743 U/L (87-241)
--- NOTE | 2022-02-05 06:00 | EX.PCM.CONCC ---
Assessment & Plan Assessment/Plan (1) Pneumonia due to 2019 novel coronavirus: PLAN: RECOMMENDATIONS: 1. Wean supplemental oxygen to maintain saturations at or above 90%. 2. Continue Decadron to complete 10 days of therapy. 3. The patient is outside of the window for remdesivir. 4. In light of increasing oxygen requirement and elevated CRP, will start baricitinib. 5. Encourage incentive spirometer use and mobilize patient as tolerated. 6. Initiate nocturnal Pap therapy, given history of LILIBETH. IMPRESSIONS: 1. Shortness of breath with associated hypoxemia secondary to COVID-19 pneumonia The patient presented to the hospital with worsening dyspnea and new onset hypoxemia, which has progressed since his initial hospital admission. The patient is currently outside of the window for remdesivir. He has already been initiated on Decadron, which will be continued to complete 10 days of therapy. Given that the patient has had an increasing oxygen requirement since his admission along with an elevated CRP, will start baricitinib. Continue to wean supplemental oxygen as tolerated for saturations greater than 90%. Encourage incentive spirometer use and mobilize patient as tolerated. 2. History of obstructive sleep apnea/obesity The patient does report a known history of sleep apnea and apparently utilizes Pap therapy on a nightly basis. I did speak with the sleep lab this morning who indicated that his prior sleep study indicated a need for bilevel with a pressure support of 18/12. However, there was some concern as well for treatment-induced central sleep apnea. Therefore, I am not entirely sure what form of Pap therapy he is currently prescribed, as it is being managed by his PCP. CODE status: Discussed CODE status at length including difference between FULL code, DNR-CCA and DNR-CC status. Following discussions about the differences in these status, patient requested FULL CODE STATUS. Advanced Care Planning Face to Face Time: 12 minutes This note was generated with Met[employer] software. It may contain incorrect words, spelling, and punctuation that were not noted in checking the note before signing. HPI Consult Data Date of Consult: 02/05/22 HPI Narrative Reason for Consultation: COVID-19 pneumonia HPI Narrative: The patient is a 41-year-old male, with a history as outlined below, who presented to the emergency department on February 04 with worsening dyspnea. The patient had been evaluated in the emergency department on February 01 with a 1 week history of fever, cough and myalgias. The patient did have a positive Covid PCR at that time. The patient was able to ambulate at that time without any hypoxemia. He was discharged home with a referral for monoclonal antibody infusion. The patient is unvaccinated. He denied any recent sick contact exposure. 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 He is a non-smoker. He denies any pre-existing lung or heart conditions. He does have a known history of sleep apnea, for which he utilizes nocturnal CPAP therapy. On presentation to the emergency department, the patient was noted to be afebrile hemodynamically stable. Platelet count was low at 149,000. D-dimer was elevated at 1.36. Chemistry profile was unremarkable. CRP was elevated at 114. Procalcitonin was noted to be 0.25. CTA showed no evidence for PE but did demonstrate multifocal groundglass opacities, most pronounced in the mid and lower lung ledezma. The patient was started on Decadron and Lovenox. He was subsequently admitted to the medical surgical floor for further management. [facility] Medical History Former smoker GERD (gastroesophageal reflux disease) LILIBETH (obstructive sleep apnea) Home Medications NK 02/01/22 [History Last Taken Unknown] Allergy/AdvReac Type Severity Reaction Status Date / Time shellfish derived Allergy Severe Angioedema Verified 02/01/22 20:14 Surgical History no surgical history Social History Smoking Status: Former smoker ROS Constitutional Constitutional: Reports body ache(s) and malaise Eyes Eyes: Denies blurry vision or change in vision ENT HEENT: Reports headache(s); Denies epistaxis or nasal discharge Cardiovascular Cardiovascular: Reports dyspnea; Denies chest pain Respiratory/Chest Respiratory/Chest: Reports cough and dyspnea Gastrointestinal Gastrointestinal: Denies abdominal pain, diarrhea, nausea or vomiting Genitourinary Genitourinary: Denies difficulty urinating Musculoskeletal Musculoskeletal: Reports myalgias Integumentary Integumentary: Denies lesions, rash or skin ulcer Neurologic Neurologic: Denies abnormal gait or abnormal speech Psychiatric Psychiatric: Denies anxiety or depression Endocrine Endocrinology: Reports fatigue Hematologic/Lymphatic Hematologic/Lymphatic: Denies easy bleeding or easy bruising Physical Exam Const alert, oriented x3 and no apparent distress General Appearance: cooperative Nutritional Appearance: obese HEENT normocephalic, head/scalp atraumatic and moist oral mucous membranes Eyes PERRL, EOMs intact bilaterally and conjunctivae normal Neck supple General: trachea midline Chest inspection of chest normal Resp normal respiratory effort and no use of accessory muscles Auscultation: diminished lung sounds; Negative for rales, rhonchi or wheezes Cardio regular rate and regular rhythm GI normal to inspection, nondistended, normoactive bowel sounds Extremity no clubbing, cyanosis or edema Skin no rashes or lesions noted Neuro CN's II-XII intact bilaterally, moves all extremities and no focal motor deficits Psych cooperative and affect normal Lab / Micro Data Result Diagrams: 02/05/22 02:30 02/05/22 02:30 Labs: Laboratory Results - last 24 hr 02/04/22 22:44: WBC 4.1 L, RBC 4.63, Hgb 13.2, Hct 39.5 L, MCV 85.3, MCH 28.5, MCHC 33.4, RDW Std Deviation 41.6, RDW Coeff of Wes 13.3, Plt Count 149 L, MPV 9.2, Immature Gran % (Auto) 1.200 H, Neut % (Auto) 77.1 H, Lymph % (Auto) 15.4 L, [place] % (Auto) 6.3, Eos % (Auto) 0.0, Baso % (Auto) 0.0, Absolute Neuts (auto) 3.2, Absolute Lymphs (auto) 0.63 L, Nucleated RBC % 0 02/04/22 22:44: Sodium 134 L, Potassium 3.6, Chloride 101, Carbon Dioxide 25.0, Anion Gap 8, BUN 13, Creatinine 1.05, Estim Creat Clear Calc 90.71, Est GFR (MDRD) Af Amer 99, Est GFR (MDRD) Non-Af 82, BUN/Creatinine Ratio 12.4, Glucose 99, Calcium 8.0 L, Troponin I High Sens 9 02/05/22 02:30: Fibrinogen 646 H 02/05/22 02:30: Lactate Dehydrogenase 743 H, Total Creatine Kinase 1393 H, C-React Prot Ext Range 114.00 H 02/05/22 02:30: B-Natriuretic Peptide 8.5 02/05/22 02:30: Procalcitonin 0.25 H 02/05/22 02:30: WBC 3.9 L, RBC 4.67, Hgb 13.4, Hct 39.0 L, MCV 83.5, MCH 28.7, MCHC 34.4, RDW Std Deviation 40.3, RDW Coeff of Wes 13.2, Plt Count 168, MPV 9.6, Immature Gran % (Auto) 0.500, Neut % (Auto) 86.0 H, Lymph % (Auto) 9.7 L, [place] % (Auto) 3.8, Eos % (Auto) 0.0, Baso % (Auto) 0.0, Absolute Neuts (auto) 3.4, Absolute Lymphs (auto) 0.38 L, Nucleated RBC % 0, Diff Path Review March02/05/22 02:30: Sodium 134 L, Potassium 4.3, Chloride 103, Carbon Dioxide 25.0, Anion Gap 6, BUN 13, Creatinine 1.11, Estim Creat Clear Calc 85.81, Est GFR (MDRD) Af Amer 93, Est GFR (MDRD) Non-Af 77, BUN/Creatinine Ratio 11.7, Glucose 117 H, Calcium 8.6 Radiology Impression Chest X-Ray 02/04/22 21:30 IMPRESSION: There is bilateral infiltrate. Electronically Signed: Sebastian Rudd MD at 21:44 EST Reading Location ID and State: [facility] / [place] , Service support , Chest CTA 02/04/22 23:20 IMPRESSION: 1. No CTA demonstrated pulmonary embolism or arterial dissection. 2. Multifocal pneumonia. Electronically Signed: Kassandra Limon MD at 0:49 EST Reading Location ID and State: [facility] / [place] , Service support , Charges/Coding Visit Charges Inpatient E&M: 27603 Init Hosp L3 Procedures Hospitalists Procedures: 76759 Advncd Care Plan 30 Min
[2022-02-05] MEDS: Ipratropium/Albuterol Sulfate 3 ML AMPUL.NEB INHALATION ×4 (07:17→19:53)
--- NOTE | 2022-02-05 07:28 | CPS ---
pt bringing own cpap in
[2022-02-05] MEDS: dexAMETHasone 10 MG/ML Vial 6 MG IV (09:09)
[2022-02-05] MEDS: Enoxaparin 30 MG/0.3 ML Syringe SC ×2 (09:09→20:27)
[2022-02-05] MEDS: Pantoprazole Sodium 40 MG Tablet PO (13:16)
--- NOTE | 2022-02-05 13:55 | CASEMGMT ---
INDERJIT DORSEY Assessment: Face to Face with pt for initial transition planning/care coordination assessment. INDERJIT DORSEY introduced self and role at [facility], pt voices understanding and consents to assessment. Pt is A/O x4 and answers all questions appropriately at this time. Pt sitting on eob with O2 on in no distress. Care providers, pharmacy, and demographics verified/updated. Admitting Dx: COVID 19 PCP:[facility]: Pt denies. Preferred [facility]acy: [facility] Insurance: [place] Prescription Benefit: yes LW/HPOA: Pt denies having a LW/DPOA and denies need for info regarding AD. LNOK: Rebecca Castro, Living Arrangements: Pt lives with and 3 children. Pt reports he is I in ADL's and denies concerns at home. Transportation: Pt drives self and denies concerns with transportation. DME/HHC/SNF: Pt has a pulse ox and a CPAP in the home. Pt denies prior HHC or SNF stays. Pt was first tested for COVID at [facility]. Encouraged use of IS. Discussed oxygen possibility at time of dc. Patient was provided a list of DME providers including quality and resource use data and consistent with the patient?s preferred geographic region, medical needs, and insurance network. The patient?s preferred provider is [facility]. Pt states no concerns with going home at time of dc. Pt states no further concerns/needs. CM to follow. Advised pt to ask CM if any further question/concerns/needs arise, voices understanding. Pt Goal: Home Plan: Home, follow for O2.
[2022-02-05 15:54] LABS: Pathologist Review Reviewed
--- NOTE | 2022-02-05 18:00 | PCM.PN.HOSP ---
Subjective Subjective Patient was seen and examined today, he was admitted yesterday for COVID-19 pneumonia, his oxygen requirement has increased and he was seen by pulmonary medicine today who placed the patient on baricitinib. He is already on Decadron. At the time my examination, patient does not complain of any shortness of breath at rest, I urged him to lie in the prone position when he is sleeping if possible. Objective Data Objective Data Vital Signs: Vital Signs Temp Pulse Resp BP Pulse Ox 98.2 F 99 20 H 122/72 H 92 02/05/22 17:51 02/05/22 17:51 02/05/22 17:51 02/05/22 17:51 02/05/22 17:51 Oxygen Flow Rate (L/min) 10 Oxygen Delivery Method High Flow Weight: 101.2 kg Body Mass Index (BMI) 33.0 Intake & Output: Intake and Output for Last 24 Hours 02/03/22 02/04/22 02/05/22 23:59 23:59 23:59 Output Total 1150 / 1150 Balance -1150 / -1150 Lab / Micro Data Result Diagrams: 02/05/22 02:30 02/05/22 02:30 Labs: Laboratory Results - last 24 hr 02/04/22 22:44: WBC 4.1 L, RBC 4.63, Hgb 13.2, Hct 39.5 L, MCV 85.3, MCH 28.5, MCHC 33.4, RDW Std Deviation 41.6, RDW Coeff of Wes 13.3, Plt Count 149 L, MPV 9.2, Immature Gran % (Auto) 1.200 H, Neut % (Auto) 77.1 H, Lymph % (Auto) 15.4 L, [place] % (Auto) 6.3, Eos % (Auto) 0.0, Baso % (Auto) 0.0, Absolute Neuts (auto) 3.2, Absolute Lymphs (auto) 0.63 L, Nucleated RBC % 0 02/04/22 22:44: Sodium 134 L, Potassium 3.6, Chloride 101, Carbon Dioxide 25.0, Anion Gap 8, BUN 13, Creatinine 1.05, Estim Creat Clear Calc 90.71, Est GFR (MDRD) Af Amer 99, Est GFR (MDRD) Non-Af 82, BUN/Creatinine Ratio 12.4, Glucose 99, Calcium 8.0 L, Troponin I High Sens 9 02/05/22 02:30: Fibrinogen 646 H 02/05/22 02:30: Lactate Dehydrogenase 743 H, Total Creatine Kinase 1393 H, C-React Prot Ext Range 114.00 H 02/05/22 02:30: B-Natriuretic Peptide 8.5 02/05/22 02:30: Procalcitonin 0.25 H 02/05/22 02:30: WBC 3.9 L, RBC 4.67, Hgb 13.4, Hct 39.0 L, MCV 83.5, MCH 28.7, MCHC 34.4, RDW Std Deviation 40.3, RDW Coeff of Wes 13.2, Plt Count 168, MPV 9.6, Immature Gran % (Auto) 0.500, Neut % (Auto) 86.0 H, Lymph % (Auto) 9.7 L, [place] % (Auto) 3.8, Eos % (Auto) 0.0, Baso % (Auto) 0.0, Absolute Neuts (auto) 3.4, Absolute Lymphs (auto) 0.38 L, Nucleated RBC % 0, Diff Path Review Reviewed 02/05/22 02:30: Sodium 134 L, Potassium 4.3, Chloride 103, Carbon Dioxide 25.0, Anion Gap 6, BUN 13, Creatinine 1.11, Estim Creat Clear Calc 85.81, Est GFR (MDRD) Af Amer 93, Est GFR (MDRD) Non-Af 77, BUN/Creatinine Ratio 11.7, Glucose 117 H, Calcium 8.6 Radiography Diagnostic Testing: Radiology Impression Chest X-Ray 02/04/22 21:30 IMPRESSION: There is bilateral infiltrate. Electronically Signed: Sebastian Rudd MD at 21:44 EST , Chest CTA 02/04/22 23:20 IMPRESSION: 1. No CTA demonstrated pulmonary embolism or arterial dissection. 2. Multifocal pneumonia. Electronically Signed: Kassandra Limon MD at 0:49 EST , Physical Exam Const alert, oriented x3 and no apparent distress General Appearance: cooperative, well kempt and well developed Orientation / Consciousness: awake, oriented to person, oriented to place and oriented to time HEENT normocephalic and moist oral mucous membranes Eyes PERRL, EOMs intact bilaterally and conjunctivae normal Neck nuchal rigidity, supple, no JVD and thyroid normal General: trachea midline Resp normal respiratory effort, no retractions and no use of accessory muscles Resp Narrative: Patient has inspiratory rales over the lower one third of both lung ledezma which are scattered Auscultation: rales; Negative for rhonchi or wheezes Cardio regular rate, regular rhythm, S1 normal heart sound, S2 normal heart sound, no murmurs, no rub, no gallops and no clicks GI normal to inspection, nondistended, normoactive bowel sounds, soft to palpation, non-tender and non-distended Extremity no clubbing, cyanosis or edema Skin no rashes or lesions noted General Skin Exam: no breakdown Neuro oriented x3, CN's II-XII intact bilaterally, no focal motor deficits and no sensory deficits noted Sensorium / Orientation: awake and alert Speech: speech normal Psych affect normal Assessment & Plan Assessment/Plan (1) Pneumonia due to 2019 novel coronavirus: PLAN: 1. COVID-19 pneumonia-patient will remain on baricitinib and Decadron at this time, he is being seen by pulmonary medicine, patient is out of the window for remdesivir #2 acute hypoxic respiratory failure secondary to [id number] will remain on his current medications per pulmonary medicine Charges/Coding Visit Charges Inpatient E&M: 38151 Subs Hosp L2
--- NOTE | 2022-02-05 20:00 | CPS ---
Set up pt's home BiPAP unit with O2 bleed in at 10 lpm
[2022-02-05] MEDS: MELATONIN 3 MG TABLET PO (23:18)
[2022-02-06] VITALS (23 sets, daily range): BP systolic 110–129; BP diastolic 55–68; PULSE 90–109; RESP 18–24; TEMP 36.6–36.8; O2SAT 78–100
--- NOTE | 2022-02-06 00:49 | NURSING ---
pt left ama
[2022-02-06] MEDS: 0.9% Saline Lock 10 ML Syringe IV ×2 (05:46→09:19)
--- NOTE | 2022-02-06 06:58 | PCM.PN.INT ---
Assessment & Plan Assessment/Plan (1) Pneumonia due to 2019 novel coronavirus: PLAN: RECOMMENDATIONS: 1. Wean supplemental oxygen to maintain saturations at or above 90%. 2. Continue Decadron to complete 10 days of therapy. 3. Continue baricitinib. 4. Encourage incentive spirometer use and mobilize patient as tolerated. Awake prone positioning was encouraged. 5. Continue nocturnal Pap therapy per home regimen. IMPRESSIONS: 1. Shortness of breath with associated hypoxemia secondary to COVID-19 pneumonia The patient presented to the hospital with worsening dyspnea and new onset hypoxemia, which has progressed since his initial hospital admission. The patient was deemed to be outside of the window for the initiation of remdesivir. However, in light of his rapidly escalating oxygen requirements and elevated CRP, he was started on baricitinib. The patient will be continued on the aforementioned along with Decadron to complete 10 days of therapy. Continue to wean supplemental oxygen as tolerated to maintain saturations at or above 90%. Encourage incentive spirometer use and mobilize patient as tolerated. 2. History of obstructive sleep apnea/obesity The patient does report a known history of sleep apnea and apparently utilizes Pap therapy on a nightly basis. Continue nocturnal BiPAP therapy per home regimen. This note was generated with [employer] dictation software. It may contain incorrect words, spelling, and punctuation that were not noted in checking the note before signing. Subjective Subjective The patient was seen and examined at the bedside this morning. Events from the last 24 hours have been reviewed. The patient is currently afebrile, hemodynamically stable and maintaining appropriate oxygen saturations on 7 L/min high flow nasal cannula. The patient remains on Decadron, prophylactic Lovenox and baricitinib. The patient was compliant with his home BiPAP unit overnight. Objective Data Objective Data The patient's most recent lab work, culture data and imaging studies have all been personally reviewed. Coronavirus PCR was positive on February 01. Vital Signs: Vital Signs Temp Pulse Resp BP Pulse Ox 97.9 F 93 18 122/61 H 95 02/06/22 05:44 02/06/22 05:44 02/06/22 05:44 02/06/22 05:44 02/06/22 06:48 Oxygen Flow Rate (L/min) 7 Oxygen Delivery Method High Flow Weight: 99.8 kg Body Mass Index (BMI) 33.0 Intake & Output: Intake and Output for Last 24 Hours 02/04/22 02/05/22 02/06/22 23:59 23:59 23:59 Intake Total 400 / 400 400 / 400 Output Total 1150 / 1150 Balance -750 / -750 400 / 400 Lab / Micro Data Attestation: I reviewed the patient's lab results. Result Diagrams: 02/07/22 06:15 02/07/22 06:15 Labs: Laboratory Results - last 24 hr 02/05/22 02:30: Diff Path Review Reviewed Physical Exam Const alert, oriented x3 and no apparent distress Constitutional Narrative: Sitting in bedside recliner. General Appearance: cooperative Nutritional Appearance: obese HEENT normocephalic, head/scalp atraumatic and moist oral mucous membranes Eyes PERRL, EOMs intact bilaterally and conjunctivae normal Neck supple General: trachea midline Chest inspection of chest normal Resp normal respiratory effort and no use of accessory muscles Auscultation: diminished lung sounds; Negative for rales, rhonchi or wheezes Cardio regular rate and regular rhythm GI normal to inspection, nondistended, normoactive bowel sounds Extremity no clubbing, cyanosis or edema Skin no rashes or lesions noted Neuro CN's II-XII intact bilaterally, moves all extremities and no focal motor deficits Psych cooperative and affect normal Charges/Coding Visit Charges Inpatient E&M: 44306 Subs Hosp L2
[2022-02-06] MEDS: Ipratropium/Albuterol Sulfate 3 ML AMPUL.NEB INHALATION ×4 (07:56→19:21)
[2022-02-06] MEDS: Pantoprazole Sodium 40 MG Tablet PO (09:18)
[2022-02-06] MEDS: Enoxaparin 30 MG/0.3 ML Syringe SC (09:18)
[2022-02-06] MEDS: dexAMETHasone 10 MG/ML Vial 6 MG IV (09:20)
--- NOTE | 2022-02-06 09:33 | NURSING ---
while up in chair eating his breakfast, spo2 84% on 6L humidified high flow, spo2 85% on 7L high flow, up to 8L high flow while eating his breakfast. pt remains up in chair spo2 90%
--- NOTE | 2022-02-06 09:36 | NURSING ---
see prior nurses note as pt is eating his breakfast.
--- NOTE | 2022-02-06 13:59 | PCM.PN.HOSP ---
Subjective Subjective Patient reports that he is feeling better with regards to his breathing in the last 24 hours. We have been able to decrease his oxygen and he is now on 7 L of heated high flow nasal cannula. He states has been compliant with ambulation has walked around the room several times. He has no specific complaints at this time. Objective Data Objective Data Vital Signs: Vital Signs Temp Pulse Resp BP Pulse Ox 98.3 F 105 H 22 H 110/57 L 92 02/06/22 12:23 02/06/22 12:23 02/06/22 12:23 02/06/22 12:23 02/06/22 12:23 Oxygen Flow Rate (L/min) [ 15 AMBULATING with Oxygen #2] Oxygen Flow Rate (L/min) [ 6 AMBULATING with Oxygen #1] Oxygen Flow Rate (L/min) [At 6 REST with Oxygen] Oxygen Flow Rate (L/min) 7 Oxygen Delivery Method High Flow Weight: 99.8 kg Body Mass Index (BMI) 33.0 Intake & Output: Intake and Output for Last 24 Hours 02/04/22 02/05/22 02/06/22 23:59 23:59 23:59 Intake Total 400 / 400 400 / 400 Output Total 1150 / 1150 Balance -750 / -750 400 / 400 Lab / Micro Data Result Diagrams: 02/05/22 02:30 02/05/22 02:30 Labs: Laboratory Results - last 24 hr 02/05/22 02:30: Diff Path Review Reviewed Physical Exam Const alert, oriented x3, no apparent distress and healthy appearing Constitutional Narrative: Overweight -[place] Citizen male sitting up in bed watching television, appears comfortable nontoxic Exam Limitations: no limitations HEENT head/scalp atraumatic and moist oral mucous membranes HEENT Narrative: Mallampati 2-3, no thrush Head and Scalp: normocephalic Resp normal respiratory effort, no retractions, no use of accessory muscles and clear to auscultation bilaterally Resp Narrative: Diminished but clear Auscultation: Negative for crackles, rales, rhonchi or wheezes Cardio regular rhythm, S1 normal heart sound, S2 normal heart sound, no murmurs, no rub, no gallops, no clicks and no JVD Cardio Narrative: Very mild tachycardia GI normal to inspection, nondistended, normoactive bowel sounds, soft to palpation, non-tender and non-distended Extremity no clubbing, cyanosis or edema Peripheral Pulses: Yes pulses 2+ throughout Neuro oriented x3, moves all extremities and no focal motor deficits Sensorium / Orientation: awake and alert Speech: speech normal Assessment & Plan Assessment/Plan (1) Acute respiratory failure with hypoxia: (2) Obesity (BMI 30.0-34.9): (3) Tachycardia: (4) Pneumonia due to 2019 novel coronavirus: PLAN: Acute hypoxic respiratory failure secondary to COVID-19 pneumonia -Symptoms started on January 29 -Patient will need isolation until 02/18/2022 -Patient has not been vaccinated -Continue Decadron day -Baricitinib initiated yesterday due to worsening oxygenation status day 2 -Continue aggressive, pulmonary toilet, I-S and Pep therapy -Encourage mobilization -PPI dose secondary to acute steroid use -Maintain euvolemia with as needed diuresis -Pulmonary medicine is following-appreciate input Tachycardia -Mild -Suspect related to acute hypoxia and Covid -Should improve with improved oxygenation Obesity -BMI is 32.5 -Recommend weight loss -Complicates overall treatment, prognosis, outcomes LILIBETH -Nocturnal BiPAP at at bedtime and with naps DVT prophylaxis -Continue Lovenox but will increase from [place] apparent 30 mg twice daily to 40 mg twice daily with BMI of 32.5 CODE STATUS Full Code Charges/Coding Visit Charges Inpatient E&M: 61525 Subs Hosp L2
[2022-02-06] MEDS: Sodium Chloride 0.65% 1 SPRAY SPRAY.BTL 2 SPRAY NASAL (20:34)
--- NOTE | 2022-02-06 22:00 | NURSING ---
Pt had home Bipap mask on and called this nurse to room, patient had nose bleed and it bleed into bipap mask. Bleeding had stopped and patient was cleaned up and put on Venti mask for a while.
[2022-02-06] MEDS: MELATONIN 3 MG TABLET PO (22:20)
[2022-02-07] VITALS (11 sets, daily range): BP systolic 126–136; BP diastolic 62–89; PULSE 86–124; RESP 18–22; TEMP 36.5–37.4; O2SAT 90–98
--- NOTE | 2022-02-07 | CPS ---
Blood in Pts BiPAP mask, new mask given to pt.
[2022-02-07 06:36] LABS: Absolute Lymphocyte Count 0.53 X10^3/uL (0.83-4.51); Absolute Neutrophil Count 4.5 X10^3/uL (2.0-7.7); Basophil# 0.01 X10^3/uL; Basophil% 0.2 % (0-1); Hematocrit 44.5 % (40-54); Hemoglobin 14.7 g/dL (13.0-16.5); Lymphocyte # 0.53 X10^3/ul (0.83-4.51); Lymphocyte % 9.8 % (19-41); Mean Corpuscular Hgb 28.4 pg (27.0-32.0); Mean Corpuscular Volume 86.1 fL (80-94); Mean Platelet Vol. 9.2 fl (6.2-12.0); Monocyte% 5.6 % (0-10); NRBC Flagged by Analyzer 0 % (0-5); Neutrophil # 4.51 X10^3/uL (2.7-7.7); Neutrophil % 83.7 % (47-70); POSITIVE DIFFERENTIAL YES; Platelet Count 243 K/mm3 (150-450); RBC Distribution Width CV 13.2 % (11.6-14.6); RBC Distribution Width SD 41.9 fl (35.1-43.9); Red Blood Count 5.17 M/mm3 (4.6-6.2); White Blood Count 5.4 K/mm3 (4.4-11.0)
[2022-02-07 06:40] LABS: Differential Indicated SCAN CRITERIA MET
[2022-02-07 07:01] LABS: ALB/GLOB Ratio 0.7 RATIO (0.9-2.4); AST(SGOT) 85 U/L (15-37); Alanine Aminotransfer ALT/SGPT 158 U/L (16-61); Alkaline Phosphatase 57 U/L (45-117); Anion Gap 4 (5-15); BUN 17 mg/dL (7-18); BUN/Creat Ratio 15.6 RATIO (10-20); Chloride 105 mmol/L (98-107); Creatinine, Serum 1.09 mg/dL (0.70-1.30); EST Glomerular Filtration Rate 78 mL/min (>60); Est Glom Filt Rate - Afr Amer 95 mL/min (>60); Estimated Creatinine Clearance 87.38 ml/min; Globulin 4.5 g/dL (2.2-4.2); Glucose 139 mg/dL (74-106); Potassium 4.5 mmol/L (3.5-5.1); Protein, Total 7.5 g/dL (6.4-8.2); Sodium Level 137 mmol/L (136-145)
[2022-02-07] MEDS: Ipratropium/Albuterol Sulfate 3 ML AMPUL.NEB INHALATION ×4 (07:15→19:25)
--- NOTE | 2022-02-07 07:33 | PN.CC_ITS ---
Assessment & Plan Assessment/Plan (1) Pneumonia due to 2019 novel coronavirus: PLAN: RECOMMENDATIONS: 1. Wean supplemental oxygen to maintain saturations at or above 90%. 2. Continue Decadron to complete 10 days of therapy. 3. Continue baricitinib. 4. Encourage incentive spirometer use and mobilize patient as tolerated. Awake prone positioning was encouraged. 5. Continue nocturnal Pap therapy per home regimen. IMPRESSIONS: 1. Shortness of breath with associated hypoxemia secondary to COVID-19 pneumonia The patient presented to the hospital with worsening dyspnea and new onset hypoxemia, which has progressed since his initial hospital admission. The patient was deemed to be outside of the window for the initiation of remdesivir. However, in light of his rapidly escalating oxygen requirements and elevated CRP, he was started on baricitinib. The patient will be continued on the aforementioned along with Decadron to complete 10 days of therapy. Continue to wean supplemental oxygen as tolerated to maintain saturations at or above 90%. Encourage incentive spirometer use and mobilize patient as tolerated. 2. History of obstructive sleep apnea/obesity The patient does report a known history of sleep apnea and apparently utilizes Pap therapy on a nightly basis. Continue nocturnal BiPAP therapy per home regimen. This note was generated with [employer] dictation software. It may contain incorrect words, spelling, and punctuation that were not noted in checking the note before signing. Subjective Subjective The patient was seen and examined at the bedside this morning. Events from the last 24 hours have been reviewed. The patient is currently afebrile, hemodynamically stable and maintaining appropriate oxygen saturations on 10 L high flow nasal cannula. The patient was once again compliant with BiPAP th erapy overnight. He remains on Decadron and baricitinib. Labs are stable this morning. Objective Data Objective Data The patient's most recent lab work, culture data and imaging studies have all been personally reviewed. Coronavirus PCR was positive on February 01. Vital Signs: Vital Signs Temp Pulse Resp BP Pulse Ox 97.7 F L 95 18 136/89 H 98 02/07/22 03:32 02/07/22 07:17 02/07/22 07:17 02/07/22 03:32 02/07/22 07:17 Oxygen Flow Rate (L/min) [ 15 AMBULATING with Oxygen #2] Oxygen Flow Rate (L/min) [ 6 AMBULATING with Oxygen #1] Oxygen Flow Rate (L/min) [At 6 REST with Oxygen] Oxygen Flow Rate (L/min) 10 Oxygen Delivery Method High Flow Weight: 99.8 kg Body Mass Index (BMI) 33.0 Intake & Output: Intake and Output for Last 24 Hours 02/05/22 02/06/22 02/07/22 23:59 23:59 23:59 Intake Total 400 / 400 400 / 400 Output Total 1150 / 1150 400 / 400 Balance -750 / -750 0 / 0 Lab / Micro Data Attestation: I reviewed the patient's lab results. Result Diagrams: 02/07/22 06:15 02/07/22 06:15 Labs: Laboratory Results - last 24 hr 02/07/22 06:15: WBC 5.4, RBC 5.17, Hgb 14.7, Hct 44.5, MCV 86.1, MCH 28.4, MCHC 33.0, RDW Std Deviation 41.9, RDW Coeff of Wes 13.2, Plt Count 243, MPV 9.2, Immature Gran % (Auto) 0.700, Neut % (Auto) 83.7 H, Lymph % (Auto) 9.8 L, [place] % (Auto) 5.6, Eos % (Auto) 0.0, Baso % (Auto) 0.2, Absolute Neuts (auto) 4.5, Absolute Lymphs (auto) 0.53 L, Nucleated RBC % 0 02/07/22 06:15: Sodium 137, Potassium 4.5, Chloride 105, Carbon Dioxide 28.0, A nion Gap 4 L, BUN 17, Creatinine 1.09, Estim Creat Clear Calc 87.38, Est GFR (MDRD) Af Amer 95, Est GFR (MDRD) Non-Af 78, BUN/Creatinine Ratio 15.6, Glucose 139 H, Calcium 9.0, Total Bilirubin 0.50, AST 85 H, ALT 158 H, Alkaline Phosphatase 57, Total Protein 7.5, Albumin 3.0 L, Globulin 4.5 H, Albumin/Globulin Ratio 0.7 L Physical Exam Const alert, oriented x3 and no apparent distress General Appearance: cooperative Nutritional Appearance: obese HEENT normocephalic, head/scalp atraumatic and moist oral mucous membranes Eyes PERRL, EOMs intact bilaterally and conjunctivae normal Neck supple General: trachea midline Chest inspection of chest normal Resp normal respiratory effort and no use of accessory muscles Auscultation: diminished lung sounds; Negative for rales, rhonchi or wheezes Cardio regular rate and regular rhythm GI normal to inspection, nondistended, normoactive bowel sounds Extremity no clubbing, cyanosis or edema Skin no rashes or lesions noted Neuro CN's II-XII intact bilaterally, moves all extremities and no focal motor deficits Psych cooperative and affect normal Charges/Coding Visit Charges Inpatient E&M: 65573 Subs Hosp L2
[2022-02-07] MEDS: dexAMETHasone 10 MG/ML Vial 6 MG IV (09:49)
[2022-02-07] MEDS: 0.9% Saline Lock 10 ML Syringe IV ×2 (09:49→15:21)
[2022-02-07] MEDS: Pantoprazole Sodium 40 MG Tablet PO (09:50)
--- NOTE | 2022-02-07 13:06 | PN.HOSP_ITS ---
Subjective Subjective Patient reports that he has had a bowel movement. He is on slightly higher oxygen today than yesterday and is now on heated high flow at 10 L. He denies any significant shortness of breath. No specific issues overnight however did have epistaxis late last evening which resolved with conservative measures and denies any current needs. Objective Data Objective Data Vital Signs: Vital Signs Temp Pulse Resp BP Pulse Ox 99.3 F H 115 H 18 126/64 H 97 02/07/22 08:30 02/07/22 11:02 02/07/22 11:02 02/07/22 08:30 02/07/22 08:30 Oxygen Flow Rate (L/min) [ 15 AMBULATING with Oxygen #2] Oxygen Flow Rate (L/min) [ 6 AMBULATING with Oxygen #1] Oxygen Flow Rate (L/min) [At 6 REST with Oxygen] Oxygen Flow Rate (L/min) 10 Oxygen Delivery Method High Flow Weight: 99.8 kg Body Mass Index (BMI) 33.0 Intake & Output: Intake and Output for Last 24 Hours 02/05/22 02/06/22 02/07/22 23:59 23:59 23:59 Intake Total 400 / 400 400 / 400 Output Total 1150 / 1150 400 / 400 Balance -750 / -750 0 / 0 Lab / Micro Data Result Diagrams: 02/07/22 06:15 02/07/22 06:15 Labs: Laboratory Results - last 24 hr 02/07/22 06:15: WBC 5.4, RBC 5.17, Hgb 14.7, Hct 44.5, MCV 86.1, MCH 28.4, MCHC 33.0, RDW Std Deviation 41.9, RDW Coeff of Wes 13.2, Plt Count 243, MPV 9.2, Immature Gran % (Auto) 0.700, Neut % (Auto) 83.7 H, Lymph % (Auto) 9.8 L, [place] % (Auto) 5.6, Eos % (Auto) 0.0, Baso % (Auto) 0.2, Absolute Neuts (auto) 4.5, Absolute Lymphs (auto) 0.53 L, Nucleated RBC % 0 02/07/22 06:15: Sodium 137, Potassium 4.5, Chloride 105, Carbon Dioxide 28.0, Anion Gap 4 L, BUN 17, Creatinine 1.09, Estim Creat Clear Calc 87.38, Est GFR (MDRD) Af Amer 95, Est GFR (MDRD) Non-Af 78, BUN/Creatinine Ratio 15.6, Glucose 139 H, Calcium 9.0, Total Bilirubin 0.50, AST 85 H, ALT 158 H, Alkaline Ph osphatase 57, Total Protein 7.5, Albumin 3.0 L, Globulin 4.5 H, Albumin/Globulin Ratio 0.7 L Physical Exam Const alert, oriented x3, no apparent distress and healthy appearing Constitutional Narrative: Overweight -Citizen Of [place] male sitting up on the edge of the bed watching television, appears comfortable, slight tachypnea ho wever he is getting up to go the bathroom, nontoxic General Appearance: cooperative, well kempt and well developed Orientation / Consciousness: awake, oriented to person, oriented to place and oriented to time Exam Limitations: no limitations Nutritional Appearance: obese HEENT normocephalic, head/scalp atraumatic and moist oral mucous membranes HEENT Narrative: No thrush, Mallampati 3 Head and Scalp: normocephalic Eyes no scleral icterus Neck nuchal rigidity and thyroid normal General: trachea midline Resp normal respiratory effort, normal air movement, no retractions, no use of accessory muscles and clear to auscultation bilaterally Resp Narrative: Diminished but clear Effort and Inspection: able to speak in complete sentences and symmetric chest movement Auscultation: diminished lung sounds; Negative for crackles, rales, rhonchi or wheezes Cardio regular rhythm, S1 normal heart sound, S2 normal heart sound, no murmurs, no rub, no gallops, no clicks, no JVD and peripheral pulses 2+ throughout Cardio Narrative: Very mild tachycardia Rate: tachycardic GI normal to inspection, nondistended, normoactive bowel sounds, soft to palpation, non-tender and non-distended Extremity normal capillary refill and no clubbing, cyanosis or edema General Extremity: no tenderness to palpation of joints or extremities Peripheral Pulses: Yes pulses 2+ throughout Skin General Skin Exam: no breakdown and turgor normal Lesions: no lesions Rashes: no rashes Neuro oriented x3, moves all extremities and no focal motor deficits Sensorium / Orientation: awake and alert Speech: speech normal Motor Exam: Negative for general weakness Psych thought process normal and cooperative Appearance: appropriate Assessment & Plan Assessment/Plan (1) Acute respiratory failure with hypoxia: (2) Obesity (BMI 30.0-34.9): (3) Tachycardia: (4) Pneumonia due to 2019 novel coronavirus: (5) Epistaxis: (6) Transaminitis: PLAN: Acute hypoxic respiratory failure secondary to COVID-19 pneumonia -Symptoms started on January 29 -Patient will need isolation until 02/18/2022 -Patient has not been vaccinated -Continue Decadron -Baricitinib initiated yesterday due to worsening oxygenation status -Patient is on heated high flow nasal cannula at 10 L with documented oxygen saturations 97 to 98% -Wean oxygen as able to maintain sats greater than 88% -Continue aggressive, pulmonary toilet, I-S and Pep therapy -Encourage mobilization -PPI dose secondary to acute steroid use -Maintain euvolemia with as needed diuresis -Lasix 20 mg IV push today--> patient is negative about 700 cc for his hospitalization -Pulmonary medicine is following-appreciate input Epistaxis -Patient with epistaxis late last evening -Resolved with compression -Patient is already on humidified oxygen -Nasal spray added -Prophylactic dose Lovenox held Tachycardia -Mild -Suspect related to acute hypoxia and Covid -Should improve with improved oxygenation Transaminitis -Slight uptrend in ALT with downtrending AST -Continue to monitor since patient is on baricitinib Obesity -BMI is 32.5 -Recommend weight loss -Complicates overall treatment, prognosis, outcomes LILIBETH -Nocturnal BiPAP at at bedtime and with naps DVT prophylaxis -Lovenox held secondary to marked epistaxis last evening -CDs while in bed CODE STATUS Full Code
[2022-02-07] MEDS: Furosemide 20 MG/2 ML VIAL IV (15:22)
--- NOTE | 2022-02-07 15:31 | CPS ---
Mentioned to RN that Pt becomes tachycardic after duoneb treatment.
[2022-02-07] MEDS: MELATONIN 3 MG TABLET PO (21:33)
[2022-02-08] VITALS (9 sets, daily range): BP systolic 112–132; BP diastolic 67–78; PULSE 77–121; RESP 18–26; TEMP 36.4–37.6; O2SAT 90–96
[2022-02-08 06:55] LABS: ALB/GLOB Ratio 0.7 RATIO (0.9-2.4); AST(SGOT) 71 U/L (15-37); Alanine Aminotransfer ALT/SGPT 145 U/L (16-61); Albumin, Serum 3.1 g/dL (3.2-5.0); Alkaline Phosphatase 68 U/L (45-117); Anion Gap 5 (5-15); BUN 18 mg/dL (7-18); BUN/Creat Ratio 18.5 RATIO (10-20); Calcium,Total 8.8 mg/dL (8.5-10.1); Chloride 100 mmol/L (98-107); Creatinine, Serum 0.97 mg/dL (0.70-1.30); EST Glomerular Filtration Rate 90 mL/min (>60); Est Glom Filt Rate - Afr Amer 108 mL/min (>60); Estimated Creatinine Clearance 98.19 ml/min; Globulin 4.7 g/dL (2.2-4.2); Glucose 160 mg/dL (74-106); Potassium 4.1 mmol/L (3.5-5.1); Protein, Total 7.8 g/dL (6.4-8.2); Sodium Level 134 mmol/L (136-145)
[2022-02-08] MEDS: Ipratropium/Albuterol Sulfate 3 ML AMPUL.NEB INHALATION ×4 (07:00→19:18)
--- NOTE | 2022-02-08 08:39 | PCM.PN.INT ---
Assessment & Plan Assessment/Plan (1) Pneumonia due to 2019 novel coronavirus: PLAN: RECOMMENDATIONS: 1. Wean supplemental oxygen to maintain saturations at or above 90%. 2. Continue Decadron to complete 10 days of therapy. 3. Continue baricitinib. 4. Encourage incentive spirometer use and mobilize patient as tolerated. Awake prone positioning was encouraged. 5. Continue nocturnal Pap therapy per home regimen. IMPRESSIONS: 1. Shortness of breath with associated hypoxemia secondary to COVID-19 pneumonia The patient presented to the hospital with worsening dyspnea and new onset hypoxemia, which has progressed since his initial hospital admission. The patient was deemed to be outside of the window for the initiation of remdesivir. However, in light of his rapidly escalating oxygen requirements and elevated CRP, he was started on baricitinib. The patient will be continued on the aforementioned along with Decadron to complete 10 days of therapy. Continue to wean supplemental oxygen as tolerated to maintain saturations at or above 90%. Encourage incentive spirometer use and mobilize patient as tolerated. 2. History of obstructive sleep apnea/obesity The patient does report a known history of sleep apnea and apparently utilizes Pap therapy on a nightly basis. Continue nocturnal BiPAP therapy per home regimen. This note was generated with [employer] dictation software. It may contain incorrect words, spelling, and punctuation that were not noted in checking the note before signing. Subjective Subjective The patient was seen and examined at the bedside this morning. Events from the last 24 hours have been reviewed. The patient is currently afebrile, hemodynamically stable and maintaining appropriate oxygen saturations on 12 L/min high flow nasal cannula. The patient remains on Decadron and baricitinib. He continues to utilize BiPAP nightly. Objective Data Objective Data The patient's most recent lab work, culture data and imaging studies have all been personally reviewed. Coronavirus PCR was positive on February 01. Vital Signs: Vital Signs Temp Pulse Resp BP Pulse Ox 97.6 F L 87 18 127/67 H 94 02/08/22 04:06 02/08/22 04:06 02/08/22 04:06 02/08/22 04:06 02/08/22 04:06 Oxygen Flow Rate (L/min) [ 15 AMBULATING with Oxygen #2] Oxygen Flow Rate (L/min) [ 6 AMBULATING with Oxygen #1] Oxygen Flow Rate (L/min) [At 6 REST with Oxygen] Oxygen Flow Rate (L/min) 10 Oxygen Delivery Method Bi-pap Weight: 98.458 kg Body Mass Index (BMI) 33.0 Intake & Output: Intake and Output for Last 24 Hours 02/06/22 02/07/22 02/08/22 23:59 23:59 23:59 Intake Total 400 / 400 300 / 300 Output Total 400 / 400 Balance 0 / 0 300 / 300 Lab / Micro Data Attestation: I reviewed the patient's lab results. Result Diagrams: 02/07/22 06:15 02/08/22 06:10 Labs: Laboratory Results - last 24 hr 02/08/22 06:10: Sodium 134 L, Potassium 4.1, Chloride 100, Carbon Dioxide 29.0, Anion Gap 5, BUN 18, Creatinine 0.97, Estim Creat Clear Calc 98.19, Est GFR (MDRD) Af Amer 108, Est GFR (MDRD) Non-Af 90, BUN/Creatinine Ratio 18.5, Glucose 160 H, Calcium 8.8, Total Bilirubin 0.70, AST 71 H, ALT 145 H, Alkaline Phosphatase 68, Total Protein 7.8, Albumin 3.1 L, Globulin 4.7 H, Albumin/Globulin Ratio 0.7 L Physical Exam Const alert, oriented x3 and no apparent distress General Appearance: cooperative Nutritional Appearance: obese HEENT normocephalic, head/scalp atraumatic and moist oral mucous membranes Eyes PERRL, EOMs intact bilaterally and conjunctivae normal Neck supple General: trachea midline Chest inspection of chest normal Resp normal respiratory effort and no use of accessory muscles Auscultation: diminished lung sounds; Negative for rales, rhonchi or wheezes Cardio regular rate and regular rhythm GI normal to inspection, nondistended, normoactive bowel sounds Extremity no clubbing, cyanosis or edema Skin no rashes or lesions noted Neuro CN's II-XII intact bilaterally, moves all extremities and no focal motor deficits Psych cooperative and affect normal Charges/Coding Visit Charges Inpatient E&M: 48847 Subs Hosp L2
[2022-02-08] MEDS: Pantoprazole Sodium 40 MG Tablet PO (10:17)
[2022-02-08] MEDS: Furosemide 40 MG/4 ML Vial IV (10:18)
[2022-02-08] MEDS: dexAMETHasone 10 MG/ML Vial 6 MG IV (10:18)
--- NOTE | 2022-02-08 13:08 | PN.HOSP_ITS ---
Subjective Subjective Patient reports his breathing feels a little bit better however when I entered the room he was on 11 L heated high flow nasal cannula. It appears that he had required as much is 12 L heated high flow nasal cannula earlier this morning. Oxygen saturations were 98% at that time and therefore I wean him to 11 L and discussed this with nursing. He remains tachypneic. He has no specific complaints at this time. Objective Data Objective Data Vital Signs: Vital Signs Temp Pulse Resp BP Pulse Ox 99.7 F H 121 H 26 H 132/78 H 92 02/08/22 10:14 02/08/22 10:49 02/08/22 10:49 02/08/22 10:14 02/08/22 10:49 Oxygen Flow Rate (L/min) [ 15 AMBULATING with Oxygen #2] Oxygen Flow Rate (L/min) [ 6 AMBULATING with Oxygen #1] Oxygen Flow Rate (L/min) [At 6 REST with Oxygen] Oxygen Flow Rate (L/min) 12 Oxygen Delivery Method Nasal Cannula Weight: 98.458 kg Body Mass Index (BMI) 33.0 Intake & Output: Intake and Output for Last 24 Hours 02/06/22 02/07/22 02/08/22 23:59 23:59 23:59 Intake Total 400 / 400 300 / 300 Output Total 400 / 400 Balance 0 / 0 300 / 300 Medical Nutrition Assessment Dietitian: Malnutrition Criteria Met Start: 02/08/22 12:10 Freq: Status: Active Protocol: Document 02/08/22 12:10 (Rec: 02/08/22 12:11 [id number]) Nutrition Malnutrition Evidence of Malnutrition Exists Yes Malnutrition (moderate): Acute Illness/Injury Evidenced By Suboptimal Energy Intake ( Moderate),Weight Loss ( Moderate) Intake Problem Inadequate Oral Intake Etiology r/t acute illness Signs/Symptoms as evidenced by reported decreased appetite [employer]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, 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, estimated PO intake meeting <75% of estimated energy needs >1 week Status Active Problem Clinical Problem Acute Disease or Injury Related Malnutrition Etiology moderate, acute malnutrition r /t inadequate energy intake w/ increased energy needs d/t COVID illness Signs/Symptoms as evidenced by PO intake meeting <75% of estimated energy needs >1 week; 6.9#/3% unintentional wt loss over ~1- 2 weeks Status Active Problem Recommendation Dietitian Recommendations/Changes regular diet, 240mL ensure enlive w/ meals as tolerated d /t acute malnutrition Lab / Micro Data Result Diagrams: 02/07/22 06:15 02/08/22 06:10 Labs: Laboratory Results - last 24 hr 02/08/22 06:10: Sodium 134 L, Potassium 4.1, Chloride 100, Carbon Dioxide 29.0, Anion Gap 5, BUN 18, Creatinine 0.97, Estim Creat Clear Calc 98.19, Est GFR (MDRD) Af Amer 108, Est GFR (MDRD) Non-Af 90, BUN/Creatinine Ratio 18.5, Glucose 160 H, Calcium 8.8, Total Bilirubin 0.70, AST 71 H, ALT 145 H, Alkaline Phosphatase 68, Total Protein 7.8, Albumin 3.1 L, Globulin 4.7 H, Album in/Globulin Ratio 0.7 L Physical Exam Const alert, oriented x3, no apparent distress and healthy appearing Constitutional Narrative: Overweight -Citizen Of [place] male lying in bed, watching television, appears comfortable however is slightly tachypneic but no signs of respiratory extremis at this time General Appearance: cooperative, well kempt and well developed Orientation / Consciousness: awake, oriented to person, oriented to place and oriented to time Exam Limitations: no limitations Nutritional Appearance: obese HEENT normocephalic, head/scalp atraumatic and moist oral mucous membranes HEENT Narrative: Mallampati is 3, no thrush Head and Scalp: normocephalic Eyes no scleral icterus Neck nuchal rigidity and thyroid normal General: trachea midline Resp normal respiratory effort, normal air movement, no retractions, no use of accessory muscles and clear to auscultation bilaterally Resp Narrative: Diminished with bibasilar crackles Effort and Inspection: able to speak in complete sentences and symmetric chest movement Auscultation: crackles and diminished lung sounds; Negative for rales, rhonchi or wheezes Cardio regular rhythm, S1 normal heart sound, S2 normal heart sound, no murmurs, no rub, no gallops, no clicks, no JVD and peripheral pulses 2+ throughout Cardio Narrative: Very mild tachycardia Rate: tachycardic GI normal to inspection, nondistended, normoactive bowel sounds, soft to palpation, non-tender and non-distended Extremity normal capillary refill and no clubbing, cyanosis or edema General Extremity: no tenderness to palpation of joints or extremities Peripheral Pulses: Yes pulses 2+ throughout Skin General Skin Exam: no breakdown and turgor normal Lesions: no lesions Rashes: no rashes Neuro oriented x3, moves all extremities and no focal motor deficits Sensorium / Orientation: awake and alert Speech: speech normal Motor Exam: Negative for general weakness Psych thought process normal and cooperative Appearance: appropriate Assessment & Plan Assessment/Plan (1) Acute respiratory failure with hypoxia: (2) Obesity (BMI 30.0-34.9): (3) Tachycardia: (4) Pneumonia due to 2019 novel coronavirus: (5) Epistaxis: (6) Transaminitis: PLAN: Acute hypoxic respiratory failure secondary to COVID-19 pneumonia -Symptoms started on January 29 -Patient will need isolation until 02/18/2022 -Patient has not been vaccinated -Continue Decadron day -Baricitinib initiated yesterday due to worsening oxygenation status day -Patient is on heated high flow nasal cannula at 11 L with documented oxygen saturations 97 to 98%--> decreased to 10 L -Wean oxygen as able to maintain sats greater than 88% -Continue HS BiPAP -Continue aggressive, pulmonary toilet, I-S and Pep therapy -Encourage mobilization -PPI dose secondary to acute steroid use -Maintain euvolemia with as needed diuresis -Lasix 40 mg IV push today--> patient is negative about 450 cc for his hospitalization -Pulmonary medicine is following-appreciate input Epistaxis -No further epistaxis -Patient is remains on humidified oxygen -Continue [place] nasal spray -Continue to hold prophylactic dose Lovenox held Tachycardia -Mild -Suspect related to acute hypoxia and Covid -Should improve with improved oxygenation Transaminitis -Slightly improved in the last 24 hours -Continue to monitor since patient is on baricitinib Obesity -BMI is 32.5 -Recommend weight loss -Complicates overall treatment, prognosis, outcomes LILIBETH -Nocturnal BiPAP at at bedtime and with naps DVT prophylaxis -Lovenox held secondary to marked epistaxis last evening -CDs while in bed CODE STATUS Full Code Charges/Coding Visit Charges Inpatient E&M: 97243 Subs Hosp L2
[2022-02-08] MEDS: MELATONIN 3 MG TABLET PO (20:59)
[2022-02-09] VITALS (21 sets, daily range): BP systolic 102–134; BP diastolic 51–92; PULSE 65–151; RESP 12–44; TEMP 36.7–38.6; O2SAT 92–100
--- NOTE | 2022-02-09 05:56 | RAD_ITS ---
STUDY: X-RAY CHEST REASON FOR EXAM: Male, 41 years old. COVID TECHNIQUE: Single AP portable view of the chest. COMPARISON: 02/04/2022 FINDINGS: Increase in the patchy alveolar opacities in both lungs consistent with worsening bilateral pneumonia. There is no demonstrated pleural abnormality. Normal size heart. Normal mediastinum and benita. Normal visualized pulmonary arteries. Normal visualized aortic arch and descending thoracic aorta. Normal visualized thoracic spine. Normal visualized ribs, clavicles, and shoulders. There is no demonstrated abnormality of the visualized soft tissue structures of the upper abdomen. RAD/Chest 1 View (Portable) IMPRESSION: Worsening bilateral patchy pneumonia. Electronically Signed: Hao Matos MD at 7:06 EST ,
[2022-02-09 07:09] LABS: Absolute Lymphocyte Count 0.64 X10^3/uL (0.83-4.51); Absolute Neutrophil Count 7.4 X10^3/uL (2.0-7.7); Basophil# 0.01 X10^3/uL; Basophil% 0.1 % (0-1); Eosinophil# 0.03 X10^3/uL; Eosinophils% 0.4 % (0-5); Hematocrit 43.7 % (40-54); Hemoglobin 14.8 g/dL (13.0-16.5); Lymphocyte # 0.64 X10^3/ul (0.83-4.51); Lymphocyte % 7.5 % (19-41); Mean Corp Hgb Conc 33.9 g/dL (32-36); Mean Corpuscular Hgb 28.5 pg (27.0-32.0); Mean Corpuscular Volume 84.2 fL (80-94); Mean Platelet Vol. 9.3 fl (6.2-12.0); Monocyte# 0.23 X10^3/uL; Monocyte% 2.7 % (0-10); NRBC Flagged by Analyzer 0 % (0-5); Neutrophil # 7.41 X10^3/uL (2.7-7.7); Neutrophil % 87.2 % (47-70); Platelet Count 222 K/mm3 (150-450); RBC Distribution Width CV 13.2 % (11.6-14.6); RBC Distribution Width SD 40.3 fl (35.1-43.9); Red Blood Count 5.19 M/mm3 (4.6-6.2); White Blood Count 8.5 K/mm3 (4.4-11.0)
--- NOTE | 2022-02-09 07:09 | PN.CC_ITS ---
"Assessment & Plan Assessment/Plan (1) Pneumonia due to 2019 novel coronavirus: PLAN: RECOMMENDATIONS: 1. Obtain repeat chest x-ray this morning. 2. Check BNP, MRSA screen and D-dimer. 3. Start empiric antimicrobials. 4. Continue Decadron to complete 10 days of therapy. 5. Continue baricitinib as ordered. 6. Wean FiO2 as tolerated to maintain saturations at or above 90%. 7. Awake prone positioning was encouraged. 8. Will attempt gentle diuresis today. IMPRESSIONS: 1. Shortness of breath with associated hypoxemia secondary to COVID-19 pne umonia The patient presented to the hospital with worsening dyspnea and new onset hypoxemia, which has progressed since his initial hospital admission. The patient was deemed to be outside of the window for the initiation of remdesivir. However, in light of his rapidly escalating oxygen requirements and elevated CRP, he was started on baricitinib. Despite the aforementioned, the patient's oxygenation status has continued to worsen. He is currently requiring heated high flow oxygen to maintain saturations. Plan to wean FiO2 as tolerated to maintain saturations at or above 90%. The patient will be started empirically on antimicrobials. Will attempt gentle diuresis today as well. Continue Decadron to complete 10 days of therapy. 2. History of obstructive sleep apnea/obesity The patient does report a known history of sleep apnea and apparently utilizes Pap therapy on a nightly basis. Continue nocturnal BiPAP therapy per home regimen. This note was generated with [id number] dictation software. It may contain incorrect words, spelling, and punctuation that were not noted in checking the note before signing. Subjective Subjective The patient was seen and examined at the bedside this morning. Events from the last 24 hours have been reviewed. Although the patient was maintained on high flow cannula yesterday, he was transitioned to Airvo heated high flow this [facility] with an FiO2 requirement of 70% and flow rate of 60 L/min. Repeat chest x- ray from this morning revealed worsening airspace opacities. The patient was again encouraged to utilize his incentive spirometer this morning. Objective Data Objective Data The patient's most recent lab work, culture data and imaging studies have all been personally reviewed. Coronavirus PCR was positive on February 01. Vital Signs: Vital Signs Temp Pulse Resp BP Pulse Ox 98.5 F 99 18 120/80 100 02/09/22 05:09 02/09/22 05:09 02/09/22 05:09 02/09/22 05:09 02/09/22 05:09 Oxygen Flow Rate (L/min) [ 15 AMBULATING with Oxygen #2] Oxygen Flow Rate (L/min) [ 6 AMBULATING with Oxygen #1] Oxygen Flow Rate (L/min) [At 6 REST with Oxygen] Oxygen Flow Rate (L/min) 60 Oxygen Delivery Method Airvo Weight: 98 kg Body Mass Index (BMI) 33.0 Intake & Output: Intake and Output for Last 24 Hours 02/07/22 02/08/22 02/09/22 23:59 23:59 23:59 Intake Total 300 / 300 500 / 500 700 / 700 Balance 300 / 300 500 / 500 700 / 700 Medical Nutrition Assessment Dietitian: Malnutrition Criteria Met Start: 02/08/22 12:10 Freq: Status: Active Protocol: Document 02/08/22 12:10 AG (Rec: 02/08/22 12:11 [id number]) Nutrition Malnutrition Evidence of Malnutrition Exists Yes Malnutrition (moderate): Acute Illness/Injury Evidenced By Suboptimal Energy Intake ( Moderate),Weight Loss ( Moderate) Intake Problem Inadequate Oral Intake Etiology r/t acute illness Signs/Symptoms as evidenced by reported decreased appetite [employer], 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, estimated PO intake meeting <75% of estimated energy needs >1 week Status Active Problem Clinical Problem Acute Disease or Injury Related Malnutrition Etiology moderate, acute malnutrition r /t inadequate energy intake w/ increased energy needs d/t COVID illness Signs/Symptoms as evidenced by PO intake meeting <75% of estimated energy needs >1 week; 6.9#/3% unintentional wt loss over ~1- 2 weeks Status Active Problem Recommendation Dietitian Recommendations/Changes regular diet, 240mL ensure enlive w/ meals as tolerated d /t acute malnutrition Lab / Micro Data Attestation: I reviewed the patient's lab results. Result Diagrams: 02/09/22 06:47 02/09/22 06:47 Radiography Diagnostic Testing: Radiology Impression Chest X-Ray 02/09/22 05:56 IMPRESSION: Worsening bilateral patchy pneumonia. Electronically Signed: Hao Matos MD at 7:06 EST , Physical Exam Const alert, oriented x3 and no apparent distress General Appearance: cooperative Nutritional Appearance: obese HEENT normocephalic, head/scalp atraumatic and moist oral mucous membranes Eyes PERRL, EOMs intact bilaterally and conjunctivae normal Neck supple General: trachea midline Chest inspection of chest normal Resp normal respiratory effort and no use of accessory muscles Effort and Inspection: able to speak in complete sentences Auscultation: diminished lung sounds; Negative for rales, rhonchi or wheezes Cardio regular rate and regular rhythm GI normal to inspection, nondistended, normoactive bowel sounds Extremity no clubbing, cyanosis or edema Skin no rashes or lesions noted Neuro CN's II-XII intact bilaterally, moves all extremities and no focal motor deficits Psych cooperative and affect normal Charges/Coding Visit Charges Inpatient E&M: 83121 Subs Hosp L3"
[2022-02-09 07:34] LABS: ALB/GLOB Ratio 0.7 RATIO (0.9-2.4); AST(SGOT) 71 U/L (15-37); Alanine Aminotransfer ALT/SGPT 132 U/L (16-61); Albumin, Serum 3.2 g/dL (3.2-5.0); Alkaline Phosphatase 87 U/L (45-117); Anion Gap 7 (5-15); BUN 21 mg/dL (7-18); BUN/Creat Ratio 18.6 RATIO (10-20); Calcium,Total 9.1 mg/dL (8.5-10.1); Chloride 98 mmol/L (98-107); Creatinine, Serum 1.13 mg/dL (0.70-1.30); EST Glomerular Filtration Rate 75 mL/min (>60); Est Glom Filt Rate - Afr Amer 91 mL/min (>60); Estimated Creatinine Clearance 84.29 ml/min; Globulin 4.5 g/dL (2.2-4.2); Glucose 112 mg/dL (74-106); Potassium 4.5 mmol/L (3.5-5.1); Protein, Total 7.7 g/dL (6.4-8.2); Sodium Level 134 mmol/L (136-145)
[2022-02-09] MEDS: Piperacil/Tazobactam 3.375 GM Q12 PREMIX IV (08:50)
[2022-02-09] MEDS: Pantoprazole Sodium 40 MG Tablet PO (08:51)
[2022-02-09] MEDS: Furosemide 40 MG/4 ML Vial IV (08:51)
[2022-02-09] MEDS: dexAMETHasone 10 MG/ML Vial 6 MG IV (08:51)
[2022-02-09 08:56] LABS: BNP,B-Type NATRIURETIC PEPTIDE 5.3 pg/mL (0-100)
[2022-02-09 09:02] LABS: D-Dimer Quantitative (DVT/PE) > 20.00 FEU/ug/m (0.27-0.49)
--- NOTE | 2022-02-09 09:07 | CT_ITS ---
STUDY: CTA CHEST REASON FOR EXAM: Male, 41 years old. elevated ddimer. + COVID RADIATION DOSAGE (If Supplied By Facility): CTDIvol = ( 11.47 ) mGy, DLP = ( 507.67 ) mGycm TECHNIQUE: The examination was performed with the intravenous administration of IV 100mL Isovue-370. Post-processing of the angiographic images was performed, with multiplanar reformation and 3D reconstruction. Individualized dose optimization techniques were used for this CT. COMPARISON: 02/04/2022, chest x-ray earlier today FINDINGS: Normal enhancement of the main pulmonary artery and right and left pulmonary arteries. Normal enhancement of the bilateral peripheral pulmonary arteries. There is no demonstrated pulmonary embolism. Normal thoracic aorta and visualized great vessels. There is no demonstrated aortic dissection. Normal heart and pericardium. Normal mediastinum. Normal hilar regions. Normal visualized trachea and bronchi. The lungs are well expanded. Bilateral patchy ground glass opacities consistent with severe subsegmental atelectasis or pneumonitis. Normal pleura. Normal chest wall structures. Normal osseous structures. Normal visualized upper abdomen. CT/CTA Chest W/WO Contrast IMPRESSION: 1. No CT evidence of pulmonary embolism. 2. Severe bilateral subsegmental atelectasis or pneumonitis. Commonly reported imaging features of Covid 19 pneumonia are present. Other processes such as influenza pneumonia and organizing pneumonia as can be seen in drug toxicity can produce a similar imaging pattern Electronically Signed: Hao Matos MD at 12:19 EST ,
--- NOTE | 2022-02-09 10:20 | CPS ---
Placed pt on BIPAP 18/12 (his home settings) and 65% for trip to CT scan Pt tolerated this well. Increased pressure to 20/14 and 55%, SpO2=95% TH=699, RR 40. RN & RT instructed pt to try and get some rest, that the PAP machine is going to stay on until lunch. He may eat while back on the Airvo but will be put back on BIPAP this afternoon until dinner. Explained the reasoning to patient of why we will have him on the PAP machine today.
[2022-02-09] MEDS: Acetaminophen 325 MG Tablet 650 MG PO (10:28)
[2022-02-09 10:55] LABS: M R Staph aureus DNA By PCR Negative (Negative); Probe Check PASS; Specimen Processing Control PASS
--- NOTE | 2022-02-09 11:08 | PCM.PN.HOSP ---
Subjective Subjective Patient is more short of breath today. He has required intermittent BiPAP and is now on air Vo. Remains tachycardic. He has been compliant with everything we have asked him to do. I did review his CT with him and with the plan of care was. His was at the bedside. Objective Data Objective Data Vital Signs: Vital Signs Temp Pulse Resp BP Pulse Ox 101.5 F H 125 H 17 102/51 L 98 02/09/22 10:22 02/09/22 10:02/09/22 10:02/09/22 10:02/09/22 10:22 Oxygen Flow Rate (L/min) [ 15 AMBULATING with Oxygen #2] Oxygen Flow Rate (L/min) [ 6 AMBULATING with Oxygen #1] Oxygen Flow Rate (L/min) [At 6 REST with Oxygen] Oxygen Flow Rate (L/min) 60 Oxygen Delivery Method Bi-pap Weight: 98 kg Body Mass Index (BMI) 33.0 Intake & Output: Intake and Output for Last 24 Hours 02/07/22 02/08/22 02/09/22 23:59 23:59 23:59 Intake Total 300 / 300 500 / 500 750 / 750 Balance 300 / 300 500 / 500 750 / 750 Medical Nutrition Assessment Dietitian: Malnutrition Criteria Met Start: 02/08/22 12:10 Freq: Status: Active Protocol: Document 02/08/22 12:10 (Rec: 02/08/22 12:11 [id number]) Nutrition Malnutrition Evidence of Malnutrition Exists Yes Malnutrition (moderate): Acute Illness/Injury Evidenced By Suboptimal Energy Intake ( Moderate),Weight Loss ( Moderate) Intake Problem Inadequate Oral Intake Etiology r/t acute illness Signs/Symptoms as evidenced by reported decreased appetite [employer], 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, estimated PO intake meeting <75% of estimated energy needs >1 week Status Active Problem Clinical Problem Acute Disease or Injury Related Malnutrition Etiology moderate, acute malnutrition r /t inadequate energy intake w/ increased energy needs d/t COVID illness Signs/Symptoms as evidenced by PO intake meeting <75% of estimated energy needs >1 week; 6.9#/3% unintentional wt loss over ~1- 2 weeks Status Active Problem Recommendation Dietitian Recommendations/Changes regular diet, 240mL ensure enlive w/ meals as tolerated d /t acute malnutrition Lab / Micro Data Result Diagrams: 02/09/22 06:47 02/09/22 06:47 Labs: Laboratory Results - last 24 hr 02/09/22 06:47: Sodium 134 L, Potassium 4.5, Chloride 98, Carbon Dioxide 29.0, Anion Gap 7, BUN 21 H, Creatinine 1.13, Estim Creat Clear Calc 84.29, Est GFR (MDRD) Af Amer 91, Est GFR (MDRD) Non-Af 75, BUN/Creatinine Ratio 18.6, Glucose 112 H, Calcium 9.1, Total Bilirubin 0.70, AST 71 H, ALT 132 H, Alkaline Phosphatase 87, Total Protein 7.7, Albumin 3.2, Globulin 4.5 H, Albumin/Globulin Ratio 0.7 L 02/09/22 06:47: WBC 8.5, RBC 5.19, Hgb 14.8, Hct 43.7, MCV 84.2, MCH 28.5, MCHC 33.9, RDW Std Deviation 40.3, RDW Coeff of Wes 13.2, Plt Count 222, MPV 9.3, Immature Gran % (Auto) 2.100 H, Neut % (Auto) 87.2 H, Lymph % (Auto) 7.5 L, Mcmullen % (Auto) 2.7, Eos % (Auto) 0.4, Baso % (Auto) 0.1, Absolute Neuts (auto) 7.4, Absolute Lymphs (auto) 0.64 L, Nucleated RBC % 0 02/09/22 08:21: B-Natriuretic Peptide 5.3 02/09/22 08:21: D-Dimer Quant (PE/DVT) > 20.00 H* 02/09/22 09:00: MRSA (PCR) Negative Radiography Diagnostic Testing: Radiology Impression Chest X-Ray 02/09/22 05:56 IMPRESSION: Worsening bilateral patchy pneumonia. Electronically Signed: Hao Matos MD at 7:06 EST , Physical Exam Const alert, oriented x3, no apparent distress and healthy appearing Constitutional Narrative: Overweight -[place] male sitting up in bed, watching television, at bedside, patient more tachypneic today and with some conversational dyspnea General Appearance: cooperative, well kempt and well developed Orientation / Consciousness: awake, oriented to person, oriented to place and oriented to time Exam Limitations: no limitations Nutritional Appearance: obese HEENT normocephalic, head/scalp atraumatic and moist oral mucous membranes HEENT Narrative: No thrush Head and Scalp: normocephalic Eyes no scleral icterus Neck nuchal rigidity and thyroid normal General: trachea midline Resp normal respiratory effort, normal air movement, no retractions, no use of accessory muscles and clear to auscultation bilaterally Resp Narrative: Diffusely diminished but no adventitious sounds noted Effort and Inspection: able to speak in complete sentences and symmetric chest movement Auscultation: crackles and diminished lung sounds; Negative for rales, rhonchi or wheezes Cardio regular rhythm, S1 normal heart sound, S2 normal heart sound, no murmurs, no rub, no gallops, no clicks, no JVD and peripheral pulses 2+ throughout Cardio Narrative: Tachycardic Rate: tachycardic GI normal to inspection, nondistended, normoactive bowel sounds, soft to palpation, non-tender and non-distended Extremity normal capillary refill and no clubbing, cyanosis or edema General Extremity: no tenderness to palpation of joints or extremities Peripheral Pulses: Yes pulses 2+ throughout Skin General Skin Exam: no breakdown and turgor normal Lesions: no lesions Rashes: no rashes Neuro oriented x3, moves all extremities and no focal motor deficits Sensorium / Orientation: awake and alert Speech: speech normal Motor Exam: Negative for general weakness Psych thought process normal and cooperative Appearance: appropriate Assessment & Plan Assessment/Plan (1) Acute respiratory failure with hypoxia: (2) Obesity (BMI 30.0-34.9): (3) Tachycardia: (4) Pneumonia due to 2019 novel coronavirus: (5) Epistaxis: (6) Transaminitis: PLAN: Acute hypoxic respiratory failure secondary to COVID-19 pneumonia -Symptoms started on January 29 -Patient will need isolation until 02/18/2022 -Patient has not been vaccinated -Continue Decadron day -Baricitinib initiated yesterday due to worsening oxygenation status -Patient is now on air Vo at 60 L/min and 75% flow -If further decompensates may need continuous BiPAP -Empiric Zosyn initiated -Sputum culture ordered if able to produce -Repeat D-dimer is elevated at 20 and therefore CTA was ordered and pending -CTA is negative will obtain bilateral lower extremity Dopplers -Anticoagulation for clots is going to be tricky given his epistaxis and therefore will use a heparin drip since is easily reversible and has a short half-life -Continue HS and as needed BiPAP -Continue aggressive, pulmonary toilet, I-S and Pep therapy -Encourage mobilization -PPI dose secondary to acute steroid use -Maintain euvolemia with as needed diuresis -Lasix 40 mg IV push today--> Patient is positive+800 for the cessation -Pulmonary medicine is following-appreciate input -May need transfer to ICU if continues to decompensate New fevers -With decompensating respiratory data suspect this is likely superimposed bacterial pneumonia -Sputum culture ordered -Empiric Zosyn initiated -We will follow cultures Epistaxis -No further epistaxis -Patient is remains on humidified oxygen -Continue [place] nasal spray -Continue to hold prophylactic dose Lovenox held -Elevated D-dimer and potential for DVT/PE may need to reinitiate anticoagulation and will use heparin since is easily reversible -If any further bleeding will need ENT input Tachycardia -Suspect related to acute hypoxia and Covid -Should improve with improved oxygenation Transaminitis -Stable over the last 24 hours -Continue to monitor since patient is on baricitinib Obesity -BMI is 32.5 -Recommend weight loss -Complicates overall treatment, prognosis, outcomes LILIBETH -Nocturnal BiPAP at at bedtime and with naps DVT prophylaxis -Lovenox held secondary to marked epistaxis last evening -SCDs while in bed CODE STATUS Full Code Charges/Coding Visit Charges Inpatient E&M: 32696 Subs Hosp L2
--- NOTE | 2022-02-09 12:37 | VDLE_ITS ---
Reason For Study: Elevzted D-dimer RIGHT LEFT CFV, FV and PopV are compressible. GSV is normal. CFV, FV, and T/P trunk are compressible. Acute deep vein thrombosis is noted in the T/P Trunk is compressible. right T/P Trunk distal, PeroV and SoleusV. PTV is compressible. GSV is normal. LT PerV is compressible. PTV is compressible. Procedure This is a venous duplex using B-mode, color flow and spectral Doppler. The exam was abbreviated due to the COVID 19 protocol. Exam performed portable in patient room. A preliminary report was called and/or faxed to [employer] program manager. VL/Venous Duplex US - Lb Extrem Interpretation Summary Acute deep venous thrombosis right tibioperoneal trunk, peroneal, and soleus ve ins No evidence for acute deep venous thrombosis left lower extremity Patent and compressible bilateral great saphenous veins Abbreviated COVID-19 protocol utilized Ordering Physician: Mercedes Miguel Referring Physician: Pedro Owens M.D. Performed By: Vero Miller RVT
[2022-02-09] MEDS: guaiFENesin 1,200 MG Tablet 1200 MG PO ×2 (14:44→21:09)
[2022-02-09] MEDS: Piperacil/Tazobactam 3.375 GM/50 ML ML IV ×2 (14:45→21:09)
[2022-02-09 16:00] LABS: International Normalized Ratio 1.3; Prothrombin Time (Protime)PT. 15.4 SECONDS (11.7-14.9)
[2022-02-09 16:02] LABS: Partial Thromboplast Time 25.5 Seconds (24.1-36.2)
--- NOTE | 2022-02-09 17:03 | NURSING ---
AT 1450 PT CALLED OUT TO COMPLAIN OF A NOSE BLEED. UPON ENTERING THE ROOM THE PT DID HAVE A NOSE BLEED AND HEPARIN WAS STOPPED. WILL CONTINUE TO MONITOR.
--- NOTE | 2022-02-09 17:42 | CPS ---
NRB @100% placed on pt by nursing d/t nose bleed
--- NOTE | 2022-02-09 17:49 | NURSING ---
talked with Dr. Naga Pedersen as per Dr. Miguel she tried to text him but said unavailable. informed of consult as stated by Dr. Miguel for epistaxis and need for anticoagulant. discussed heparin drip. Dr. Pedersen requested Dr. Miguel call him with phone number he provided. Dr. Miguel sent cortext with this request and phone number.
--- NOTE | 2022-02-09 17:59 | PCM.HOSP.N ---
Hospitalist Note R LE below the knee DVT noted on LE dopplers. Heparin ggt initiated without bolus since he had epistaxis on prophylactic dose Lovenox 40 mg. Unfortunatly, he started with epistasis again within 5 min of being on ggt. ggt discontinued and bleeding stopped. Discussed case with ENT (Dr. Pedersen)and he is unable to place him under sedation 2/2 his covid for cautery. Will repeat US tomorrow and monitor for propagation and then consult Dr. Jordan on Friday for IVC filter since he will remain hypercoagulable with his COVID infection. We do not have available IVC placement this weekend.
[2022-02-09] MEDS: Ipratropium/Albuterol Sulfate 3 ML AMPUL.NEB INHALATION (19:51)
[2022-02-09] MEDS: MELATONIN 3 MG TABLET PO (21:09)
[2022-02-09] MEDS: 0.9% Saline Lock 10 ML Syringe IV (21:10)
[2022-02-10] VITALS (14 sets, daily range): BP systolic 101–135; BP diastolic 50–91; PULSE 88–125; RESP 20–24; TEMP 36.9–37.7; O2SAT 92–97
[2022-02-10] MEDS: Piperacil/Tazobactam 3.375 GM/50 ML ML IV ×3 (06:15→20:28)
[2022-02-10 06:50] LABS: Absolute Lymphocyte Count 0.65 X10^3/uL (0.83-4.51); Absolute Neutrophil Count 9.5 X10^3/uL (2.0-7.7); Basophil# 0.03 X10^3/uL; Basophil% 0.3 % (0-1); Eosinophil# 0.05 X10^3/uL; Eosinophils% 0.5 % (0-5); Hematocrit 44.8 % (40-54); Hemoglobin 15.8 g/dL (13.0-16.5); Lymphocyte # 0.65 X10^3/ul (0.83-4.51); Lymphocyte % 6.1 % (19-41); Mean Corp Hgb Conc 35.3 g/dL (32-36); Mean Corpuscular Hgb 29.4 pg (27.0-32.0); Mean Corpuscular Volume 83.4 fL (80-94); Mean Platelet Vol. 9.7 fl (6.2-12.0); Monocyte# 0.21 X10^3/uL; NRBC Flagged by Analyzer 0 % (0-5); Neutrophil # 9.52 X10^3/uL (2.7-7.7); Neutrophil % 89.3 % (47-70); Platelet Count 207 K/mm3 (150-450); RBC Distribution Width CV 12.9 % (11.6-14.6); RBC Distribution Width SD 39.1 fl (35.1-43.9); Red Blood Count 5.37 M/mm3 (4.6-6.2); White Blood Count 10.7 K/mm3 (4.4-11.0)
--- NOTE | 2022-02-10 06:54 | PN.CC_ITS ---
Assessment & Plan Assessment/Plan (1) Pneumonia due to 2019 novel coronavirus: PLAN: RECOMMENDATIONS: 1. Continue to wean FiO2 to maintain oxygen saturations at or above 90%. 2. Continue empiric antimicrobials. 3. Continue Decadron and baricitinib as ordered. 4. Awake prone positioning was encouraged. 5. Consider retrievable IVC filter placement tomorrow. IMPRESSIONS: 1. Shortness of breath with associated hypoxemia secondary to COVID-19 pne umonia The patient presented to the hospital with worsening dyspnea and new onset hypoxemia, which has progressed since his initial hospital admission. The patient was deemed to be outside of the window for the initiation of remdesivir. However, in light of his rapidly escalating oxygen requirements and elevated CRP, he was started on baricitinib. Despite the aforementioned, the patient's oxygenation status has continued to worsen. He is currently requiring heated high flow oxygen to maintain saturations. Plan to wean FiO2 as tolerated to maintain saturations at or above 90%. The patient will be continued on empiric antimicrobials and Decadron. Intermittent use of diuretics can be entertained to maintain euvolemic state. 2. Lower extremity DVT Although the patient was initiated on a weight-based heparin infusion, a short time later the patient developed significant epistaxis. He was not felt to be a candidate for cautery, per ENT. Accordingly, the patient systemic anticoagulation was discontinued. Agree with consideration for retrievable IVC filter placement tomorrow. 3. History of obstructive sleep apnea/obesity The patient does report a known history of sleep apnea and apparently utilizes Pap therapy on a nightly basis. Continue nocturnal BiPAP therapy per home regimen. This note was generated with [employer] dictation software. It may contain incorrect words, spelling, and punctuation that were not noted in checking the note before signing. Subjective Subjective The patient was seen and examined at the bedside this morning. Events from the last 24 hours have been reviewed. The patient is currently afebrile, hemodyna mically stable and maintaining appropriate oxygen saturations on Airvo heated high flow with an FiO2 requirement of 75% and flow rate of 60 L/min. Yesterday, the patient was noted to have an elevated D-dimer. CTA chest again showed no evidence for pulmonary embolism. However, preliminary read on the patient's Doppler study indicated a right lower extremity DVT. The patient was placed on a weight-based heparin infusion but a short time later developed significant epistaxis. His systemic anticoagulation was accordingly placed on hold, with tentative plans to consider IVC filter placement on Friday. The patient remains now on empiric antimicrobials, Decadron and baricitinib. He did report that he is making every attempt to sleep in an off supine position. Objective Data Objective Data The patient's most recent lab work, culture data and imaging studies have all been personally reviewed. Coronavirus PCR was positive on February 01. Vital Signs: Vital Signs Temp Pulse Resp BP Pulse Ox 98.4 F 88 20 H 112/72 97 02/10/22 03:24 02/10/22 03:29 02/10/22 03:24 02/10/22 03:24 02/10/22 03:24 Oxygen Flow Rate (L/min) [ 15 AMBULATING with Oxygen #2] Oxygen Flow Rate (L/min) [ 6 AMBULATING with Oxygen #1] Oxygen Flow Rate (L/min) [At 6 REST with Oxygen] Oxygen Flow Rate (L/min) 64 Oxygen Delivery Method Airvo Weight: 98.747 kg Body Mass Index (BMI) 33.0 Intake & Output: Intake and Output for Last 24 Hours 02/08/22 02/09/22 02/11/22 23:59 23:59 00:59 Intake Total 500 / 500 1603.03 / 1603.03 50 / 50 Output Total 600 / 600 650 / 650 Balance 500 / 500 1003.03 / 1003.03 -600 / -600 Medical Nutrition Assessment Dietitian: Malnutrition Criteria Met Start: 02/08/22 12:10 Freq: Status: Active Protocol: Document 02/08/22 12:10 (Rec: 02/08/22 12:11 [id number]) Nutrition Malnutrition Evidence of Malnutrition Exists Yes Malnutrition (moderate): Acute Illness/Injury Evidenced By Suboptimal Energy Intake ( Moderate),Weight Loss ( Moderate) Intake Problem Inadequate Oral Intake Etiology r/t acute illness Signs/Symptoms as evidenced by reported decreased appetite 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, 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, estimated PO intake meeting <75% of estimated energy needs >1 week Status Active Problem Clinical Problem Acute Disease or Injury Related Malnutrition Etiology moderate, acute malnutrition r /t inadequate energy intake w/ increased energy needs d/t COVID illness Signs/Symptoms as evidenced by PO intake meeting <75% of estimated energy needs >1 week; 6.9#/3% unintentional wt loss over ~1- 2 weeks Status Active Problem Recommendation Dietitian Recommendations/Changes regular diet, 240mL ensure enlive w/ meals as tolerated d /t acute malnutrition Lab / Micro Data Attestation: I reviewed the patient's lab results. Result Diagrams: 02/10/22 06:37 02/10/22 06:37 Labs: Laboratory Results - last 24 hr 02/09/22 06:47: Sodium 134 L, Potassium 4.5, Chloride 98, Carbon Dioxide 29.0, Anion Gap 7, BUN 21 H, Creatinine 1.13, Estim Creat Clear Calc 84.29, Est GFR (MDRD) Af Amer 91, Est GFR (MDRD) Non-Af 75, BUN/Creatinine Ratio 18.6, Glucose 112 H, Calcium 9.1, Total Bilirubin 0.70, AST 71 H, ALT 132 H, Alkaline Phosphatase 87, Total Protein 7.7, Albumin 3.2, Globulin 4.5 H, Albumin/Globulin Ratio 0.7 L 02/09/22 06:47: WBC 8.5, RBC 5.19, Hgb 14.8, Hct 43.7, MCV 84.2, MCH 28.5, MCHC 33.9, RDW Std Deviation 40.3, RDW Coeff of Wes 13.2, Plt Count 222, MPV 9.3, Immature Gran % (Auto) 2.100 H, Neut % (Auto) 87.2 H, Lymph % (Auto) 7.5 L, [place] % (Auto) 2.7, Eos % (Auto) 0.4, Baso % (Auto) 0.1, Absolute Neuts (auto) 7.4, Absolute Lymphs (auto) 0.64 L, Nucleated RBC % 0 02/09/22 08:21: B-Natriuretic Peptide 5.3 02/09/22 08:21: D-Dimer Quant (PE/DVT) > 20.00 H* 02/09/22 09:00: MRSA (PCR) Negative 02/09/22 15:25: PT 15.4 H, INR 1.3, APTT 25.5 02/10/22 06:37: WBC 10.7, RBC 5.37, Hgb 15.8, Hct 44.8, MCV 83.4, MCH 29.4, MCHC 35.3, RDW Std Deviation 39.1, RDW Coeff of Wes 12.9, Plt Count 207, MPV 9.7, Immature Gran % (Auto) 1.800 H, Neut % (Auto) 89.3 H, Lymph % (Auto) 6.1 L, [place] % (Auto) 2.0, Eos % (Auto) 0.5, Baso % (Auto) 0.3, Absolute Neuts (auto) 9.5 H, Absolute Lymphs (auto) 0.65 L, Nucleated RBC % 0 Micro: Microbiology 02/09/22 17:50 Interface Orders Gram Stain - Preliminary Radiography Diagnostic Testing: Radiology Impression Chest X-Ray 02/09/22 05:56 IMPRESSION: Worsening bilateral patchy pneumonia. Electronically Signed: Hao Matos MD at 7:06 EST Reading Location ID and State: [facility] [id number] Tel , Service support , Chest CTA 02/09/22 09:[address]: 1[address] No [address] evidence of pulmonary embolism. 2. Severe bilateral subsegmental atelectasis or pneumonitis. Commonly reported imaging features of Covid 19 pneumonia are present. Other processes such as influenza pneumonia and organizing pneumonia as can be seen in drug toxicity can produce a similar imaging pattern Electronically Signed: Hao Matos MD at 12:19 EST Reading Location ID and State: [id number] Tel , Service support , Physical Exam Const alert, oriented x3 and no apparent distress General Appearance: cooperative Nutritional Appearance: obese HEENT normocephalic, head/scalp atraumatic and moist oral mucous membranes Eyes PERRL, EOMs intact bilaterally and conjunctivae normal Neck supple General: trachea midline Chest inspection of chest normal Resp normal respiratory effort and no use of accessory muscles Effort and Inspection: able to speak in complete sentences Auscultation: diminished lung sounds; Negative for rales, rhonchi or wheezes Cardio regular rate and regular rhythm GI normal to inspection, nondistended, normoactive bowel sounds Extremity no clubbing, cyanosis or edema Skin no rashes or lesions noted Neuro CN's II-XII intact bilaterally, moves all extremities and no focal motor deficits Psych cooperative and affect normal Charges/Coding Visit Charges Inpatient E&M: 12749 Subs Hosp L3
[2022-02-10 07:27] LABS: ALB/GLOB Ratio 0.7 RATIO (0.9-2.4); AST(SGOT) 71 U/L (15-37); Alanine Aminotransfer ALT/SGPT 107 U/L (16-61); Albumin, Serum 3.1 g/dL (3.2-5.0); Alkaline Phosphatase 107 U/L (45-117); Anion Gap 8 (5-15); BUN 26 mg/dL (7-18); BUN/Creat Ratio 22.6 RATIO (10-20); Chloride 98 mmol/L (98-107); Creatinine, Serum 1.15 mg/dL (0.70-1.30); EST Glomerular Filtration Rate 74 mL/min (>60); Est Glom Filt Rate - Afr Amer 89 mL/min (>60); Estimated Creatinine Clearance 82.82 ml/min; Globulin 4.4 g/dL (2.2-4.2); Glucose 172 mg/dL (74-106); Potassium 4.7 mmol/L (3.5-5.1); Protein, Total 7.5 g/dL (6.4-8.2); Sodium Level 132 mmol/L (136-145)
[2022-02-10] MEDS: Ipratropium/Albuterol Sulfate 3 ML AMPUL.NEB INHALATION (07:39)
--- NOTE | 2022-02-10 08:00 | VDLE_ITS ---
Reason For Study: Elevated D-dimer RIGHT LEFT CFV, FV and PopV are compressible. GSV is normal. CFV, FV and PopV are compressible. Acute deep vein thrombosis is noted in the right T/P Trunk distal, PeroV and SoleusV. Acute deep vein thrombosis is noted in the GSV is normal. left SoleusV. PTV is compressible. T/P Trunk is compressible. Procedure PTV is compressible. This is a venous duplex using B-mode, color LT PerV is compressible. flow and spectral Doppler. Exam performed portable in patient room. The exam was abbreviated due to the COVID 19 protocol. Compared to 02/09/2022. A preliminary report was called and/or faxed to [facility] and JENNA Palacios RN. VL/Venous Duplex US - Lb Extrem Interpretation Summary Acute deep venous thrombosis right tibia repair drunk, peroneal, soleus veins. Acute deep venous thrombosis left soleus vein, new from February 10, 2022. Patent and compressible bilateral great saphenous vein Abbreviated COVID-19 protocol utilized Ordering Physician: Mercedes Miguel Referring Physician: Pedro Owens M.D. Performed By: Vero Miller RVT
--- NOTE | 2022-02-10 09:15 | PN.HOSP_ITS ---
Subjective Subjective T-max in the last 24 hours has been 99.9. We have been able to wean oxygen some today. I suspect with these findings he likely has a superimposed bacterial pneumonia and is improving as we are treating this. Cultures are still pending. He states that overall his breathing is feeling better today. Objective Data Objective Data Vital Signs: Vital Signs Temp Pulse Resp BP Pulse Ox 98.4 F 88 20 H 112/72 97 02/10/22 03:24 02/10/22 03:29 02/10/22 03:24 02/10/22 03:24 02/10/22 03:24 Oxygen Flow Rate (L/min) [ 15 AMBULATING with Oxygen #2] Oxygen Flow Rate (L/min) [ 6 AMBULATING with Oxygen #1] Oxygen Flow Rate (L/min) [At 6 REST with Oxygen] Oxygen Flow Rate (L/min) 64 Oxygen Delivery Method Airvo Weight: 98.747 kg Body Mass Index (BMI) 33.0 Intake & Output: Intake and Output for Last 24 Hours 02/08/22 02/09/22 02/11/22 23:59 23:59 00:59 Intake Total 500 / 500 1603.03 / 1603.03 50 / 50 Output Total 600 / 600 650 / 650 Balance 500 / 500 1003.03 / 1003.03 -600 / -600 Medical Nutrition Assessment Dietitian: Malnutrition Criteria Met Start: 02/08/22 12:10 Freq: Status: Active Protocol: Document 02/08/22 12:10 (Rec: 02/08/22 12:11 [id number]) Nutrition Malnutrition Evidence of Malnutrition Exists Yes Malnutrition (moderate): Acute Illness/Injury Evidenced By Suboptimal Energy Intake ( Moderate),Weight Loss ( Moderate) Intake Problem Inadequate Oral Intake Etiology r/t acute illness Signs/Symptoms as evidenced by reported decreased appetite 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, 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, estimated PO intake meeting <75% of estimated energy needs >1 week Status Active Problem Clinical Problem Acute Disease or Injury Related Malnutrition Etiology moderate, acute malnutrition r /t inadequate energy intake w/ increased energy needs d/t COVID illness Signs/Symptoms as evidenced by PO intake meeting <75% of estimated energy needs >1 week; 6.9#/3% unintentional wt loss over ~1- 2 weeks Status Active Problem Recommendation Dietitian Recommendations/Changes regular diet, 240mL ensure enlive w/ meals as tolerated d /t acute malnutrition Lab / Micro Data Result Diagrams: 02/10/22 06:37 02/10/22 06:37 Labs: Laboratory Results - last 24 hr 02/09/22 08:21: B-Natriuretic Peptide 5.3 02/09/22 08:21: D-Dimer Quant (PE/DVT) > 20.00 H* 02/09/22 09:00: MRSA (PCR) Negative 02/09/22 15:25: PT 15.4 H, INR 1.3, APTT 25.5 02/10/22 06:37: Sodium 132 L, Potassium 4.7, Chloride 98, Carbon Dioxide 26.0, Anion Gap 8, BUN 26 H, Creatinine 1.15, Estim Creat Clear Calc 82.82, Est GFR (MDRD) Af Amer 89, Est GFR (MDRD) Non-Af 74, BUN/Creatinine Ratio 22.6 H, Glucose 172 H, Calcium 9.0, Total Bilirubin 0.80, AST 71 H, ALT 107 H, Alkaline Phosphatase 107, Total Protein 7.5, Albumin 3.1 L, Globulin 4.4 H, Albumin/Globu regina Ratio 0.7 L 02/10/22 06:37: WBC 10.7, RBC 5.37, Hgb 15.8, Hct 44.8, MCV 83.4, MCH 29.4, MCHC 35.3, RDW Std Deviation 39.1, RDW Coeff of Wes 12.9, Plt Count 207, MPV 9.7, Immature Gran % (Auto) 1.800 H, Neut % (Auto) 89.3 H, Lymph % (Auto) 6.1 L, [place] % (Auto) 2.0, Eos % (Auto) 0.5, Baso % (Auto) 0.3, Absolute Neuts (auto) 9.5 H, Absolute Lymphs (auto) 0.65 L, Nucleated RBC % 0 Micro: Microbiology 02/09/22 17:50 Interface Orders Gram Stain - Preliminary Radiography Diagnostic Testing: Radiology Impression Chest CTA 02/09/22 09:07 IMPRESSION: 1. No CT evidence of pulmonary embolism. 2. Severe bilateral subsegmental atelectasis or pneumonitis. Commonly reported imaging features of Covid 19 pneumonia are present. Other processes such as influenza pneumonia and organizing pneumonia as can be seen in drug toxicity can produce a similar imaging pattern Electronically Signed: Hao Matos MD at 12:19 EST , Physical Exam Const alert, oriented x3, no apparent distress and well nourished Constitutional Narrative: Overweight -[place] male sitting up in bed, with hvac technician residential at bedside getting ready to perform a lower extremity Doppler, at bedside, patient appears less tachypneic at rest today but still with some conversational dyspnea General Appearance: cooperative, well kempt and well developed Orientation / Consciousness: awake, oriented to person, oriented to place and oriented to time Exam Limitations: no limitations Nutritional Appearance: obese HEENT normocephalic, head/scalp atraumatic and moist oral mucous membranes HEENT Narrative: No thrush, Mallampati 3 Head and Scalp: normocephalic Eyes no scleral icterus Neck nuchal rigidity and thyroid normal General: trachea midline Resp normal respiratory effort, normal air movement, no retractions, no use of accessory muscles and clear to auscultation bilaterally Resp Narrative: Diffusely diminished but no adventitious sounds noted Effort and Inspection: able to speak in complete sentences and symmetric chest movement Auscultation: crackles and diminished lung sounds; Negative for rales, rhonchi or wheezes Cardio regular rhythm, S1 normal heart sound, S2 normal heart sound, no murmurs, no rub, no gallops, no clicks, no JVD and peripheral pulses 2+ throughout Cardio Narrative: Tachycardic Rate: tachycardic GI normal to inspection, nondistended, normoactive bowel sounds, soft to palpation, non-tender and non-distended Extremity normal capillary refill and no clubbing, cyanosis or edema General Extremity: no tenderness to palpation of joints or extremities Peripheral Pulses: Yes pulses 2+ throughout Skin General Skin Exam: no breakdown and turgor normal Lesions: no lesions Rashes: no rashes Neuro oriented x3, moves all extremities and no focal motor deficits Sensorium / Orientation: awake and alert Speech: speech normal Motor Exam: Negative for general weakness Psych thought process normal and cooperative Appearance: appropriate Assessment & Plan Assessment/Plan (1) Acute respiratory failure with hypoxia: (2) Obesity (BMI 30.0-34.9): (3) Tachycardia: (4) Pneumonia due to 2019 novel coronavirus: (5) Epistaxis: (6) Transaminitis: PLAN: Acute hypoxic respiratory failure secondary to COVID-19 pneumonia -Symptoms started on January 29 -Patient will need isolation until 02/18/2022 -Patient has not been vaccinated -Continue Decadron -Baricitinib initiated yesterday due to worsening oxygenation status -Patient is now on air Vo at 64 L/min and 75% flow with SPO2 of 96 to 97% -If further decompensates may need continuous BiPAP -Wean supplemental oxygen as able -Continue empiric Zosyn -Sputum culture pending -Continue HS and as needed BiPAP -Continue aggressive, pulmonary toilet, I-S and Pep therapy -Continue to encourage mobilization -PPI dose secondary to acute steroid use -Maintain euvolemia with as needed diuresis -Hold Lasix today as serum BUN and creatinine are slowly increasing -Evaluate daily and try to allow for euvolemia if possible-patient currently about 400+ for hospitalization -Pulmonary medicine is following-appreciate input -May need transfer to ICU if continues to decompensate New fevers -No further fevers since yesterday afternoon when antibiotics were initiated -With decompensating respiratory data suspect this is likely superimposed bacterial pneumonia -Sputum culture obtained and pending -Continue empiric Zosyn -We will follow cultures Right lower extremity [id number] -Clots are currently below the knee -Heparin drip initiated but patient with recurrent epistaxis that is fairly significant after 5 minutes of heparin drip initiation -Bolus was not given -No anticoagulation secondary to recurrent severe epistaxis -We will need IVC filter placement tomorrow--> consult Dr. Jordan for this tomorrow -Repeat Dopplers today to assess for propagation and more urgent IVC filter needs -Proximal veins in right lower extremity were compressible with no signs of clot -CTA was negative for PE Epistaxis -Had recurrent epistaxis when heparin drip was initiated for lower extremity DVT -Discussed the case with Dr. Matt from ENT and he was not comfortable placing the patient under anesthesia for cauterization -Because of recurrent epistaxis with anticoagulation patient will need IVC filter -Patient is remains on humidified oxygen -Continue [place] nasal spray -Continue to hold prophylactic dose Lovenox held Tachycardia -Suspect related to acute hypoxia and Covid -Should improve with improved oxygenation -Better overnight Transaminitis -Continues to trend down -Continue to monitor since patient is on baricitinib Obesity -BMI is 32.5 -Recommend weight loss -Complicates overall treatment, prognosis, outcomes LILIBETH -Nocturnal BiPAP at at bedtime and with naps DVT prophylaxis -Lovenox held secondary to marked epistaxis last evening -SCDs while in bed CODE STATUS Full Code Charges/Coding Visit Charges Inpatient E&M: 80077 Subs Hosp L2
[2022-02-10] MEDS: Pantoprazole Sodium 40 MG Tablet PO (10:26)
[2022-02-10] MEDS: guaiFENesin 1,200 MG Tablet 1200 MG PO ×2 (10:26→20:28)
[2022-02-10] MEDS: dexAMETHasone 10 MG/ML Vial 6 MG IV (10:27)
[2022-02-10] MEDS: Acetaminophen 325 MG Tablet 650 MG PO (10:43)
[2022-02-10] MEDS: MELATONIN 3 MG TABLET PO (20:28)
--- NOTE | 2022-02-10 22:39 | CPS ---
increased O2 for LILIBETH as pt can not tolerate BiPAP due to frequent nose bleeds
[2022-02-11] VITALS (15 sets, daily range): BP systolic 103–137; BP diastolic 48–89; PULSE 70–115; RESP 18–20; TEMP 36.7–36.8; O2SAT 91–98
[2022-02-11] MEDS: Piperacil/Tazobactam 3.375 GM/50 ML ML IV ×3 (05:11→20:36)
[2022-02-11 06:26] LABS: Absolute Lymphocyte Count 0.42 X10^3/uL (0.83-4.51); Absolute Neutrophil Count 9.1 X10^3/uL (2.0-7.7); Basophil# 0.01 X10^3/uL; Basophil% 0.1 % (0-1); Eosinophil# 0.06 X10^3/uL; Eosinophils% 0.6 % (0-5); Hematocrit 42.3 % (40-54); Hemoglobin 14.8 g/dL (13.0-16.5); Lymphocyte # 0.42 X10^3/ul (0.83-4.51); Lymphocyte % 4.2 % (19-41); Mean Corpuscular Volume 82.9 fL (80-94); Mean Platelet Vol. 9.8 fl (6.2-12.0); Monocyte# 0.13 X10^3/uL; Monocyte% 1.3 % (0-10); NRBC Flagged by Analyzer 0 % (0-5); Neutrophil # 9.12 X10^3/uL (2.7-7.7); Neutrophil % 92.3 % (47-70); POSITIVE DIFFERENTIAL YES; Platelet Count 198 K/mm3 (150-450); RBC Distribution Width CV 12.8 % (11.6-14.6); RBC Distribution Width SD 39.1 fl (35.1-43.9); White Blood Count 9.9 K/mm3 (4.4-11.0)
[2022-02-11 06:28] LABS: Differential Indicated SCAN CRITERIA MET
[2022-02-11 06:55] LABS: ALB/GLOB Ratio 0.6 RATIO (0.9-2.4); AST(SGOT) 48 U/L (15-37); Alanine Aminotransfer ALT/SGPT 96 U/L (16-61); Albumin, Serum 2.7 g/dL (3.2-5.0); Alkaline Phosphatase 111 U/L (45-117); Anion Gap 4 (5-15); BUN 22 mg/dL (7-18); BUN/Creat Ratio 21.2 RATIO (10-20); Calcium,Total 8.8 mg/dL (8.5-10.1); Chloride 98 mmol/L (98-107); Creatinine, Serum 1.04 mg/dL (0.70-1.30); EST Glomerular Filtration Rate 83 mL/min (>60); Est Glom Filt Rate - Afr Amer 100 mL/min (>60); Estimated Creatinine Clearance 91.59 ml/min; Globulin 4.7 g/dL (2.2-4.2); Glucose 211 mg/dL (74-106); Potassium 4.6 mmol/L (3.5-5.1); Protein, Total 7.4 g/dL (6.4-8.2); Sodium Level 131 mmol/L (136-145)
--- NOTE | 2022-02-11 08:07 | PN.CC_ITS ---
Assessment & Plan Assessment/Plan (1) Pneumonia due to 2019 novel coronavirus: PLAN: RECOMMENDATIONS: 1. Continue to wean FiO2 to maintain oxygen saturations at or above 90%. 2. Continue empiric antimicrobials. 3. Continue Decadron (02/15/2022) and baricitinib (02/18/2022) as ordered. 4. Awake prone positioning was encouraged. 5. Await decision on retrievable IVC filter placement. IMPRESSIONS: 1. Shortness of breath with associated hypoxemia secondary to COVID-19 pneumonia The patient presented to the hospital with worsening dyspnea and new onset hypoxemia, which has progressed since his initial hospital admission. The patient was deemed to be outside of the window for the initiation of remdesivir. However, in light of his rapidly escalating oxygen requirements and elevated CRP, he was started on baricitinib. Patient appears to have stabilized on high flow nasal cannula oxygen. He is currently requiring heated high flow oxygen to maintain saturations. Plan to wean FiO2 as tolerated to maintain saturations at or above 90%. The patient will be continued on empiric antimicrobials and Decadron. Intermittent use of diuretics can be entertained to maintain euvolemic state. Likely dose tomorrow if patient remains fluid positive 2. Lower extremity DVT Although the patient was initiated on a weight-based heparin infusion, a short time later the patient developed significant epistaxis. He was not felt to be a candidate for cautery, per ENT. Accordingly, the patient systemic anticoagulation was discontinued. Agree with consideration for retrievable IVC filter placement. Patient has been made n.p.o. in anticipation for possible intervention 3. History of obstructive sleep apnea/obesity The patient does report a known history of sleep apnea and apparently utilizes Pap therapy on a nightly basis. Continue nocturnal BiPAP therapy per home regimen. Patient does have a chinstrap and is compliant. This note was generated with [employer] dictation software. It may contain incorrect words, spelling, and punctuation that were not noted in checking the note before signing. Subjective Subjective Patient did well overnight. No acute issues were reported. Patient is not reporting any significant epistaxis overnight. Patient does report a cough that is largely nonproductive. Patient is not reporting any chest pain. Patient denies any nausea or vomiting. Patient has been made n.p.o. for possible IVC filter. Did confirm patient is not vaccinated. Objective Data Objective Data Vital Signs: Vital Signs Temp Pulse Resp BP Pulse Ox 36.7 C 98 18 103/48 L 98 02/11/22 02:20 02/11/22 07:37 02/11/22 03:45 02/11/22 02:20 02/11/22 07:20 Oxygen Flow Rate (L/min) [ 15 AMBULATING with Oxygen #2] Oxygen Flow Rate (L/min) [ 6 AMBULATING with Oxygen #1] Oxygen Flow Rate (L/min) [At 6 REST with Oxygen] Oxygen Flow Rate (L/min) 60 Oxygen Delivery Method Airvo Weight: 98.203 kg Body Mass Index (BMI) 33.0 Intake & Output: Intake and Output for Last 24 Hours 02/09/22 02/10/22 02/11/22 22:59 23:59 23:59 Intake Total 50 / 50 Output Total Balance 50 / 50 Medical Nutrition Assessment Dietitian: Malnutrition Criteria Met Start: 02/08/22 12:10 Freq: Status: Active Protocol: Document 02/08/22 12:10 AG (Rec: 02/08/22 12:11 [id number]) Nutrition Malnutrition Evidence of Malnutrition Exists Yes Malnutrition (moderate): Acute Illness/Injury Evidenced By Suboptimal Energy Intake ( Moderate),Weight Loss ( Moderate) Intake Problem Inadequate Oral Intake Etiology r/t acute illness Signs/Symptoms as evidenced by 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, 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, estimated PO intake meeting <75% of estimated energy needs >1 week Status Active Problem Clinical Problem Acute Disease or Injury Related Malnutrition Etiology moderate, acute malnutrition r /t inadequate energy intake w/ increased energy needs d/t COVID illness Signs/Symptoms as evidenced by PO intake meeting <75% of estimated energy needs >1 week; 6.9#/3% unintentional wt loss over ~1- 2 weeks Status Active Problem Recommendation Dietitian Recommendations/Changes regular diet, 240mL ensure enlive w/ meals as tolerated d /t acute malnutrition Lab / Micro Data Result Diagrams: 02/11/22 06:00 02/11/22 06:00 Labs: Laboratory Results - last 24 hr 02/11/22 06:00: Sodium 131 L, Potassium 4.6, Chloride 98, Carbon Dioxide 29.0, Anion Gap 4 L, BUN 22 H, Creatinine 1.04, Estim Creat Clear Calc 91.59, Est GFR (MDRD) Af Amer 100, Est GFR (MDRD) Non-Af 83, BUN/Creatinine Ratio 21.2 H, Glucose 211 H, Calcium 8.8, Total Bilirubin 0.50, AST 48 H, ALT 96 H, Alkaline Phosphatase 111, Total Protein 7.4, Albumin 2.7 L, Globulin 4.7 H, Albumin/Globulin Ratio 0.6 L 02/11/22 06:00: WBC 9.9, RBC 5.10, Hgb 14.8, Hct 42.3, MCV 82.9, MCH 29.0, MCHC 35.0, RDW Std Deviation 39.1, RDW Coeff of Wes 12.8, Plt Count 198, MPV 9.8, Immature Gran % (Auto) 1.500 H, Neut % (Auto) 92.3 H, Lymph % (Auto) 4.2 L, [place] % (Auto) 1.3, Eos % (Auto) 0.6, Baso % (Auto) 0.1, Absolute Neuts (auto) 9.1 H, Absolute Lymphs (auto) 0.42 L, Nucleated RBC % 0 Micro: Microbiology 02/09/22 17:50 Interface Orders Gram Stain - Preliminary 02/09/22 17:50 Interface Orders Respiratory Culture - Preliminary Staphylococcus aureus Radiography Diagnostic Testing: Radiology Impression Venous Doppler Study 02/09/22 12:37 Interpretation Summary Acute deep venous thrombosis right tibioperoneal trunk, peroneal, and soleus veins No evidence for acute deep venous thrombosis left lower extremity Patent and compressible bilateral great saphenous veins Abbreviated COVID-19 protocol utilized Ordering Physician: Mercedes Miguel Referring Physician: Pedro Owens M.D. Performed By: Vero Miller RVT Venous Doppler Study 02/10/22 08:00 Interpretation Summary Acute deep venous thrombosis right tibia repair drunk, peroneal, soleus veins. Acute deep venous thrombosis left soleus vein, new from February 10, 2022. Patent and compressible bilateral great saphenous vein Abbreviated COVID-19 protocol utilized Ordering Physician: Mercedes Miguel Referring Physician: Pedro Owens M.D. Performed By: Vero Miller RVT Physical Exam Const alert, oriented x3 and no apparent distress General Appearance: cooperative Nutritional Appearance: obese HEENT normocephalic, head/scalp atraumatic and moist oral mucous membranes Eyes PERRL, EOMs intact bilaterally and conjunctivae normal Neck supple General: trachea midline Chest inspection of chest normal Resp normal respiratory effort and no use of accessory muscles Effort and Inspection: able to speak in complete sentences Auscultation: diminished lung sounds; Negative for rales, rhonchi or wheezes Cardio regular rate, regular rhythm, no murmurs, no rub and no gallops GI normal to inspection, nondistended, normoactive bowel sounds Extremity no clubbing, cyanosis or edema Skin no rashes or lesions noted Neuro CN's II-XII intact bilaterally, moves all extremities and no focal motor deficits Psych cooperative and affect normal Charges/Coding Visit Charges Inpatient E&M: 83184 Subs Hosp L3
[2022-02-11] MEDS: dexAMETHasone 10 MG/ML Vial 6 MG IV (09:44)
--- NOTE | 2022-02-11 12:18 | PCM.PN.HOSP ---
Subjective Subjective Breathing ok with Airvo. No further epistaxis. Had 2 episodes of epistaxis, longest lasted for 10 minutes. Objective Data Objective Data Vital Signs: Vital Signs Temp Pulse Resp BP Pulse Ox 36.8 C 115 H 20 H 137/68 H 91 02/11/22 09:40 02/11/22 11:30 02/11/22 09:40 02/11/22 09:40 02/11/22 11:30 Oxygen Flow Rate (L/min) [ 15 AMBULATING with Oxygen #2] Oxygen Flow Rate (L/min) [ 6 AMBULATING with Oxygen #1] Oxygen Flow Rate (L/min) [At 6 REST with Oxygen] Oxygen Flow Rate (L/min) 60 Oxygen Delivery Method Airvo Weight: 98.203 kg Body Mass Index (BMI) 33.0 Intake & Output: Intake and Output for Last 24 Hours 02/09/22 02/10/22 02/11/22 22:59 23:59 23:59 Intake Total 100 / 100 Output Total Balance 100 / 100 Medical Nutrition Assessment Dietitian: Malnutrition Criteria Met Start: 02/08/22 12:10 Freq: Status: Active Protocol: Document 02/11/22 10:37 MAIA (Rec: 02/11/22 10:37 [facility] [id number]) Nutrition Malnutrition Evidence of Malnutrition Exists Yes Malnutrition (moderate): Acute Illness/Injury Evidenced By Suboptimal Energy Intake ( Moderate),Weight Loss ( Moderate) Intake Problem Inadequate Oral Intake Etiology r/t acute illness Signs/Symptoms as evidenced by 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, 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, estimated PO intake meeting <75% of estimated energy needs >1 week Status Inactive Problem Clinical Problem Acute Disease or Injury Related Malnutrition Etiology moderate, acute malnutrition r /t inadequate energy intake w/ increased energy needs d/t COVID illness Signs/Symptoms as evidenced by PO intake meeting <50% of estimated energy needs >1 week; 5.9% unintentional wt loss over ~1- 2 weeks - po intake improving per pt Status Active Problem Recommendation Dietitian Recommendations/Changes regular diet, 240mL ensure enlive w/ meals as tolerated d /t acute malnutrition Lab / Micro Data Result Diagrams: 02/11/22 06:00 02/11/22 06:00 Labs: Laboratory Results - last 24 hr 02/11/22 06:00: Sodium 131 L, Potassium 4.6, Chloride 98, Carbon Dioxide 29.0, Anion Gap 4 L, BUN 22 H, Creatinine 1.04, Estim Creat Clear Calc 91.59, Est GFR (MDRD) Af Amer 100, Est GFR (MDRD) Non-Af 83, BUN/Creatinine Ratio 21.2 H, Glucose 211 H, Calcium 8.8, Total Bilirubin 0.50, AST 48 H, ALT 96 H, Alkaline Phosphatase 111, Total Protein 7.4, Albumin 2.7 L, Globulin 4.7 H, Albumin/Globulin Ratio 0.6 L 02/11/22 06:00: WBC 9.9, RBC 5.10, Hgb 14.8, Hct 42.3, MCV 82.9, MCH 29.0, MCHC 35.0, RDW Std Deviation 39.1, RDW Coeff of Wes 12.8, Plt Count 198, MPV 9.8, Immature Gran % (Auto) 1.500 H, Neut % (Auto) 92.3 H, Lymph % (Auto) 4.2 L, [place] % (Auto) 1.3, Eos % (Auto) 0.6, Baso % (Auto) 0.1, Absolute Neuts (auto) 9.1 H, Absolute Lymphs (auto) 0.42 L, Nucleated RBC % 0 Micro: Microbiology 02/09/22 17:50 Interface Orders Gram Stain - Final 02/09/22 17:50 Interface Orders Respiratory Culture - Final Staphylococcus aureus Radiography Diagnostic Testing: Radiology Impression Venous Doppler Study 02/09/22 12:37 Interpretation Summary Acute deep venous thrombosis right tibioperoneal trunk, peroneal, and soleus veins No evidence for acute deep venous thrombosis left lower extremity Patent and compressible bilateral great saphenous veins Abbreviated COVID-19 protocol utilized Ordering Physician: Mercedes Miguel Referring Physician: Pedro Owens M.D. Performed By: Vero Miller RVT Venous Doppler Study 02/10/22 08:00 Interpretation Summary Acute deep venous thrombosis right tibia repair drunk, peroneal, soleus veins. Acute deep venous thrombosis left soleus vein, new from February 10, 2022. Patent and compressible bilateral great saphenous vein Abbreviated COVID-19 protocol utilized Ordering Physician: Mercedes Miguel Referring Physician: Pedro Owens M.D. Performed By: Vero Miller RVT Physical Exam Const alert and no apparent distress Resp normal respiratory effort, no retractions, no use of accessory muscles and clear to auscultation bilaterally Cardio regular rate, regular rhythm, S1 normal heart sound and S2 normal heart sound GI normal to inspection, nondistended, normoactive bowel sounds, soft to palpation, non-tender and non-distended Extremity normal to inspection and full ROM Assessment & Plan Assessment/Plan (1) Transaminitis: (2) Epistaxis: (3) Acute respiratory failure with hypoxia: (4) Pneumonia due to 2019 novel coronavirus: PLAN: 1. acute hypoxic respiratory failure 2/2 COVID 19 pneumonia and MSSA pneumonia wean oxygen as tolerated on Airvo continue IS and accapella valve 2. COVID 19 pneumonia unvaccinated onset 01/29 quarantine through 02/18 on dexamethasone through the on baricitinib through the pt was not started on remdesivir 3. MSSA pneumonia change to levaquin and treat through the . 4. BLE DVTs likely due to hypercoagulable state from COVID 19 no personal nor family history of VTE start apixaban and monitor for #5. 5. epistaxis x2, per pt, one occurred while on BiPAP and BP was elevated none since 6. Hyperglycemia 2/2 steroids carb-control diet SSI 7. VTE prophylaxis: anticoagulated Greater than 35 minutes of which greater than 50% of the time was counseling patient about Covid, pneumonia, using incentive spirometer. Charges/Coding Visit Charges Inpatient E&M: 11650 [facility] Hosp L3
[2022-02-11] MEDS: guaiFENesin 1,200 MG Tablet 1200 MG PO ×2 (13:51→20:36)
[2022-02-11] MEDS: Pantoprazole Sodium 40 MG Tablet PO (13:51)
[2022-02-11 16:26] LABS: Bedside Glucose 265 mg/dL (74-106)
[2022-02-11] MEDS: Insulin Lispro 100 UNIT/ML INSULN.PEN SC (17:40)
[2022-02-11] MEDS: APIXABAN 5 MG TABLET 10 MG PO (20:36)
[2022-02-11] MEDS: MELATONIN 3 MG TABLET PO (20:36)
[2022-02-11 20:51] LABS: Bedside Glucose 360 mg/dL (74-106)
[2022-02-12] VITALS (15 sets, daily range): BP systolic 108–128; BP diastolic 54–81; PULSE 79–112; RESP 18; TEMP 36.7–37.5; O2SAT 91–97
[2022-02-12] MEDS: Piperacil/Tazobactam 3.375 GM/50 ML ML IV (06:03)
[2022-02-12] MEDS: Insulin Lispro 100 UNIT/ML INSULN.PEN SC ×3 (06:03→15:29)
[2022-02-12 08:02] LABS: Bedside Glucose 271 mg/dL (74-106)
[2022-02-12] MEDS: APIXABAN 5 MG TABLET 10 MG PO ×2 (08:37→21:33)
[2022-02-12] MEDS: Pantoprazole Sodium 40 MG Tablet PO (08:38)
[2022-02-12] MEDS: guaiFENesin 1,200 MG Tablet 1200 MG PO ×2 (08:38→21:33)
[2022-02-12] MEDS: dexAMETHasone 10 MG/ML Vial 6 MG IV (08:38)
[2022-02-12] MEDS: levoFLOXacin IV 750 MG/150 ML BAG 100 MG IV (10:06)
[2022-02-12 11:11] LABS: Bedside Glucose 347 mg/dL (74-106)
--- NOTE | 2022-02-12 12:05 | PCM.PN.HOSP ---
Subjective Subjective Breathing better. On 15 liters high-flow oxygen. Sats drop to 88% with ambulation. Objective Data Objective Data Vital Signs: Vital Signs Temp Pulse Resp BP Pulse Ox 37.5 C H 102 H 18 108/54 L 96 02/12/22 10:59 02/12/22 10:59 02/12/22 10:59 02/12/22 10:59 02/12/22 10:59 Oxygen Flow Rate (L/min) [ 15 AMBULATING with Oxygen #2] Oxygen Flow Rate (L/min) [ 6 AMBULATING with Oxygen #1] Oxygen Flow Rate (L/min) [At 6 REST with Oxygen] Oxygen Flow Rate (L/min) 15 Oxygen Delivery Method High Flow Weight: 97.885 kg Body Mass Index (BMI) 33.0 Intake & Output: Intake and Output for Last 24 Hours 02/10/22 02/11/22 02/12/22 23:59 23:59 23:59 Intake Total 150 / 150 100 / 100 Output Total 1850 / 1850 1700 / 1700 Balance -1700 / -1700 -1600 / -1600 Medical Nutrition Assessment Dietitian: Malnutrition Criteria Met Start: 02/08/22 12:10 Freq: Status: Active Protocol: Document 02/11/22 10:37 MAIA (Rec: 02/11/22 10:37 MAIA [id number]) Nutrition Malnutrition Evidence of Malnutrition Exists Yes Malnutrition (moderate): Acute Illness/Injury Evidenced By Suboptimal Energy Intake ( Moderate),Weight Loss ( Moderate) Intake Problem Inadequate Oral Intake Etiology r/t acute illness Signs/Symptoms as evidenced 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, 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, estimated PO intake meeting <75% of estimated energy needs >1 week Status Inactive Problem Clinical Problem Acute Disease or Injury Related Malnutrition Etiology moderate, acute malnutrition r /t inadequate energy intake w/ increased energy needs d/t COVID illness Signs/Symptoms as evidenced by PO intake meeting <50% of estimated energy needs >1 week; 5.9% unintentional wt loss over ~1- 2 weeks - po intake improving per pt Status Active Problem Recommendation Dietitian Recommendations/Changes regular diet, 240mL ensure enlive w/ meals as tolerated d /t acute malnutrition Lab / Micro Data Result Diagrams: 02/11/22 06:00 02/11/22 06:00 Labs: Laboratory Results - last 24 hr 02/11/22 16:13: POC Glucose 265 H 02/11/22 20:33: POC Glucose 360 H 02/12/22 06:02: POC Glucose 271 H 02/12/22 10:54: POC Glucose 347 H Micro: Microbiology 02/09/22 17:50 Interface Orders Gram Stain - Final 02/09/22 17:50 Interface Orders Respiratory Culture - Final Staphylococcus aureus Physical Exam Const alert and no apparent distress Resp normal respiratory effort, no retractions, no use of accessory muscles and clear to auscultation bilaterally Cardio regular rate, regular rhythm, S1 normal heart sound and S2 normal heart sound GI normal to inspection, nondistended, normoactive bowel sounds, soft to palpation, non-tender and non-distended Extremity normal to inspection Assessment & Plan Assessment/Plan (1) Transaminitis: (2) Epistaxis: (3) Acute respiratory failure with hypoxia: (4) Pneumonia due to 2019 novel coronavirus: PLAN: 1. acute hypoxic respiratory failure improving 2/2 COVID 19 pneumonia and MSSA pneumonia wean oxygen as tolerated continue IS and accapella valve 2. COVID 19 pneumonia unvaccinated onset 01/29 quarantine through 02/18 on dexamethasone through the on baricitinib through the pt was not started on remdesivir 3. MSSA pneumonia change to levaquin and treat through the . 4. BLE DVTs likely due to hypercoagulable state from COVID 19 no personal nor family history of VTE start apixaban and monitor for #5. 5. epistaxis x2, per pt, one occurred while on BiPAP and BP was elevated none since 6. Hyperglycemia 2/2 steroids carb-control diet SSI 7. VTE prophylaxis: anticoagulated Charges/Coding Visit Charges Inpatient E&M: 66043 Subs Hosp L2
--- NOTE | 2022-02-12 13:23 | PCM.PN.INT ---
Assessment & Plan Assessment/Plan (1) Pneumonia due to 2019 novel coronavirus: PLAN: RECOMMENDATIONS: 1. Continue to wean FiO2 to maintain oxygen saturations at or above 90%. 2. Complete 7 days of antimicrobials for MSSA pneumonia 3. Continue Decadron (02/15/2022) and baricitinib (02/18/2022) as ordered. 4. Awake prone positioning was encouraged. 5. Continue to monitor for bleeding complications IMPRESSIONS: 1. Shortness of breath with associated hypoxemia secondary to COVID-19 and MSSA pneumonia The patient presented to the hospital with worsening dyspnea and new onset hypoxemia, which has progressed since his initial hospital admission. The patient was deemed to be outside of the window for the initiation of remdesivir. However, in light of his rapidly escalating oxygen requirements and elevated CRP, he was started on baricitinib. Patient appears to have stabilized on nasal cannula oxygen. Monitor closely for bleeding complications from epistaxis. Plan to wean FiO2 as tolerated to maintain saturations at or above 90%. The patient will be continued on antimicrobials for MSSA pneumonia and Decadron. Intermittent use of diuretics can be entertained to maintain euvolemic state. Discussed discharge if patient able to ambulate on 6 L or less 2. Lower extremity DVT Although the patient was initiated on a weight-based heparin infusion, a short time later the patient developed significant epistaxis. He was not felt to be a candidate for cautery, per ENT. Accordingly, the patient systemic anticoagulation was discontinued. Patient appears to be tolerating anticoagulation at this time. Stressed to the patient the importance of using nasal saline to avoid recurrent epistaxis 3. History of obstructive sleep apnea/obesity The patient does report a known history of sleep apnea and apparently utilizes Pap therapy on a nightly basis. Continue nocturnal BiPAP therapy per home regimen. Patient does have a chinstrap and is compliant. This note was generated with [employer] dictation software. It may contain incorrect words, spelling, and punctuation that were not noted in checking the note before signing. Subjective Subjective Patient did well overnight. No acute issues are reported. Patient has not had Eliquis complications that he is reporting such as epistaxis. Patient has been tolerating nasal cannula during the day today. Patient is reporting significant improvement in cough. Objective Data Objective Data Vital Signs: Vital Signs Temp Pulse Resp BP Pulse Ox 37.5 C H 99 18 108/54 L 91 02/12/22 10:59 02/12/22 12:44 02/12/22 10:59 02/12/22 10:59 02/12/22 11:05 Oxygen Flow Rate (L/min) [ 15 AMBULATING with Oxygen #2] Oxygen Flow Rate (L/min) [ 6 AMBULATING with Oxygen #1] Oxygen Flow Rate (L/min) [At 6 REST with Oxygen] Oxygen Flow Rate (L/min) 15 Oxygen Delivery Method High Flow Weight: 97.885 kg Body Mass Index (BMI) 33.0 Intake & Output: Intake and Output for Last 24 Hours 02/10/22 02/11/22 02/12/22 23:59 23:59 23:59 Intake Total 150 / 150 250 / 250 Output Total 1850 / 1850 1700 / 1700 Balance -1700 / -1700 -1450 / -1450 Medical Nutrition Assessment Dietitian: Malnutrition Criteria Met Start: 02/08/22 12:10 Freq: Status: Active Protocol: Document 02/11/22 10:37 MAIA (Rec: 02/11/22 10:37 MAIA [id number]) Nutrition Malnutrition Evidence of Malnutrition Exists Yes Malnutrition (moderate): Acute Illness/Injury Evidenced By Suboptimal Energy Intake ( Moderate),Weight Loss ( Moderate) Intake Problem Inadequate Oral Intake Etiology r/t acute illness Signs/Symptoms as evidenced by 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, 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, estimated PO intake meeting <75% of estimated energy needs >1 week Status Inactive Problem Clinical Problem Acute Disease or Injury Related Malnutrition Etiology moderate, acute malnutrition r /t inadequate energy intake w/ increased energy needs d/t COVID illness Signs/Symptoms as evidenced by PO intake meeting <50% of estimated energy needs >1 week; 5.9% unintentional wt loss over ~1- 2 weeks - po intake improving per pt Status Active Problem Recommendation Dietitian Recommendations/Changes regular diet, 240mL ensure enlive w/ meals as tolerated d /t acute malnutrition Lab / Micro Data Result Diagrams: 02/11/22 06:00 02/11/22 06:00 Labs: Laboratory Results - last 24 hr 02/11/22 16:13: POC Glucose 265 H 02/11/22 20:33: POC Glucose 360 H 02/12/22 06:02: POC Glucose 271 H 02/12/22 10:54: POC Glucose 347 H Micro: Microbiology 02/09/22 17:50 Interface Orders Gram Stain - Final 02/09/22 17:50 Interface Orders Respiratory Culture - Final Staphylococcus aureus Physical Exam Const alert, oriented x3 and no apparent distress General Appearance: cooperative Nutritional Appearance: obese HEENT normocephalic, head/scalp atraumatic and moist oral mucous membranes Eyes PERRL, EOMs intact bilaterally and conjunctivae normal Neck supple General: trachea midline Chest inspection of chest normal Resp normal respiratory effort and no use of accessory muscles Effort and Inspection: able to speak in complete sentences Auscultation: diminished lung sounds; Negative for rales, rhonchi or wheezes Cardio regular rate, regular rhythm, no murmurs, no rub and no gallops GI normal to inspection, nondistended, normoactive bowel sounds Extremity no clubbing, cyanosis or edema Skin no rashes or lesions noted Neuro CN's II-XII intact bilaterally, moves all extremities and no focal motor deficits Psych cooperative and affect normal Charges/Coding Visit Charges Inpatient E&M: 69452 Subs Hosp L2
[2022-02-12 15:36] LABS: Bedside Glucose 314 mg/dL (74-106)
[2022-02-12] MEDS: Acetaminophen 325 MG Tablet 650 MG PO (21:32)
[2022-02-12] MEDS: MELATONIN 3 MG TABLET PO (21:33)
[2022-02-12 21:51] LABS: Bedside Glucose 227 mg/dL (74-106)
[2022-02-12] MEDS: Albuterol 2.5 MG/3 ML VIAL.NEB. INHALATION (22:34)
[2022-02-13] VITALS (14 sets, daily range): BP systolic 110–127; BP diastolic 59–66; PULSE 62–98; RESP 18; TEMP 36.6–36.9; O2SAT 92–97
[2022-02-13] MEDS: Insulin Lispro 100 UNIT/ML INSULN.PEN SC ×4 (03:58→23:58)
[2022-02-13 04:36] LABS: Bedside Glucose 215 mg/dL (74-106)
[2022-02-13 05:46] LABS: Absolute Lymphocyte Count 0.52 X10^3/uL (0.83-4.51); Absolute Neutrophil Count 7.6 X10^3/uL (2.0-7.7); Basophil# 0.01 X10^3/uL; Basophil% 0.1 % (0-1); Eosinophil# 0.04 X10^3/uL; Eosinophils% 0.5 % (0-5); Hematocrit 41.1 % (40-54); Hemoglobin 14.4 g/dL (13.0-16.5); Lymphocyte # 0.52 X10^3/ul (0.83-4.51); Lymphocyte % 6.1 % (19-41); Mean Corpuscular Hgb 29.1 pg (27.0-32.0); Mean Platelet Vol. 9.1 fl (6.2-12.0); Monocyte# 0.21 X10^3/uL; Monocyte% 2.5 % (0-10); NRBC Flagged by Analyzer 0 % (0-5); Neutrophil # 7.55 X10^3/uL (2.7-7.7); POSITIVE DIFFERENTIAL YES; Platelet Count 180 K/mm3 (150-450); RBC Distribution Width CV 12.9 % (11.6-14.6); Red Blood Count 4.95 M/mm3 (4.6-6.2); White Blood Count 8.5 K/mm3 (4.4-11.0)
[2022-02-13 05:48] LABS: Differential Indicated SCAN CRITERIA MET
[2022-02-13 06:11] LABS: ALB/GLOB Ratio 0.5 RATIO (0.9-2.4); AST(SGOT) 40 U/L (15-37); Alanine Aminotransfer ALT/SGPT 105 U/L (16-61); Albumin, Serum 2.7 g/dL (3.2-5.0); Alkaline Phosphatase 101 U/L (45-117); Anion Gap 3 (5-15); BUN 20 mg/dL (7-18); BUN/Creat Ratio 20.9 RATIO (10-20); Calcium,Total 8.9 mg/dL (8.5-10.1); Chloride 99 mmol/L (98-107); Creatinine, Serum 0.96 mg/dL (0.70-1.30); EST Glomerular Filtration Rate 91 mL/min (>60); Est Glom Filt Rate - Afr Amer 110 mL/min (>60); Estimated Creatinine Clearance 99.22 ml/min; Globulin 5.2 g/dL (2.2-4.2); Glucose 194 mg/dL (74-106); Potassium 4.3 mmol/L (3.5-5.1); Protein, Total 7.9 g/dL (6.4-8.2); Sodium Level 132 mmol/L (136-145)
[2022-02-13 06:22] LABS: Differential Comment SCANNED
[2022-02-13 09:55] LABS: Hemoglobin A1c 6.8 % (3.8-5.6)
[2022-02-13] MEDS: 0.9% Saline Lock 10 ML Syringe IV (10:22)
[2022-02-13] MEDS: dexAMETHasone 10 MG/ML Vial 6 MG IV (10:22)
--- NOTE | 2022-02-13 10:22 | PCM.PN.INT ---
Assessment & Plan Assessment/Plan (1) Pneumonia due to 2019 novel coronavirus: PLAN: RECOMMENDATIONS: 1. Continue to wean FiO2 to maintain oxygen saturations at or above 90%. 2. Complete 7 days of antimicrobials for MSSA pneumonia 3. Continue Decadron (02/15/2022) and baricitinib (02/18/2022) as ordered. 4. Awake prone positioning was encouraged. 5. Continue to monitor for bleeding complications 6. Challenge with diuretics today IMPRESSIONS: 1. Shortness of breath with associated hypoxemia secondary to COVID-19 and MSSA pneumonia The patient presented to the hospital with worsening dyspnea and new onset hypoxemia, which has progressed since his initial hospital admission. The patient was deemed to be outside of the window for the initiation of remdesivir. However, in light of his rapidly escalating oxygen requirements and elevated CRP, he was started on baricitinib. Patient appears to have stabilized on nasal cannula oxygen. Monitor closely for bleeding complications from epistaxis. Plan to wean FiO2 as tolerated to maintain saturations at or above 90%. The patient will be continued on antimicrobials for MSSA pneumonia and Decadron. Intermittent use of diuretics can be entertained to maintain euvolemic state. Discussed discharge if patient able to ambulate on 6 L or less 2. Lower extremity DVT Although the patient was initiated on a weight-based heparin infusion, a short time later the patient developed significant epistaxis. He was not felt to be a candidate for cautery, per ENT. Accordingly, the patient systemic anticoagulation was discontinued. Patient appears to be tolerating anticoagulation at this time. Stressed to the patient the importance of using nasal saline to avoid recurrent epistaxis 3. History of obstructive sleep apnea/obesity The patient does report a known history of sleep apnea and apparently utilizes Pap therapy on a nightly basis. Continue nocturnal BiPAP therapy per home regimen. Patient does have a chinstrap and is compliant. This note was generated with [employer] dictation software. It may contain incorrect words, spelling, and punctuation that were not noted in checking the note before signing. Subjective Subjective Patient did okay overnight. Patient has remained on nasal cannula and tolerating well. Patient does desaturate down into the low 80s on 10 L nasal cannula during my evaluation. Patient is not reporting any significant cough. Objective Data Objective Data Vital Signs: Vital Signs Temp Pulse Resp BP Pulse Ox 36.6 C 80 18 122/65 H 95 02/13/22 08:32 02/13/22 08:32 02/13/22 08:32 02/13/22 08:32 02/13/22 08:32 Oxygen Flow Rate (L/min) [ 15 AMBULATING with Oxygen #2] Oxygen Flow Rate (L/min) [ 6 AMBULATING with Oxygen #1] Oxygen Flow Rate (L/min) [At 6 REST with Oxygen] Oxygen Flow Rate (L/min) 10 Oxygen Delivery Method High Flow Weight: 109.2 kg Body Mass Index (BMI) 33.0 Intake & Output: Intake and Output for Last 24 Hours 02/11/22 02/12/22 02/13/22 23:59 23:59 23:59 Intake Total 150 / 150 900 / 900 Output Total 1850 / 1850 2300 / 2300 300 / 300 Balance -1700 / -1700 -1400 / -1400 -300 / -300 Medical Nutrition Assessment Dietitian: Malnutrition Criteria Met Start: 02/08/22 12:10 Freq: Status: Active Protocol: Document 02/11/22 10:37 MAIA (Rec: 02/11/22 10:37 MAIA [id number]) Nutrition Malnutrition Evidence of Malnutrition Exists Yes Malnutrition (moderate): Acute Illness/Injury Evidenced By Suboptimal Energy Intake ( Moderate),Weight Loss ( Moderate) Intake Problem Inadequate Oral Intake Etiology r/t acute illness Signs/Symptoms as evidenced by 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, 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, estimated PO intake meeting <75% of estimated energy needs >1 week Status Inactive Problem Clinical Problem Acute Disease or Injury Related Malnutrition Etiology moderate, acute malnutrition r /t inadequate energy intake w/ increased energy needs d/t COVID illness Signs/Symptoms as evidenced by PO intake meeting <50% of estimated energy needs >1 week; 5.9% unintentional wt loss over ~1- 2 weeks - po intake improving per pt Status Active Problem Recommendation Dietitian Recommendations/Changes regular diet, 240mL ensure enlive w/ meals as tolerated d /t acute malnutrition Lab / Micro Data Result Diagrams: 02/13/22 05:35 02/13/22 05:35 Labs: Laboratory Results - last 24 hr 02/12/22 10:54: POC Glucose 347 H 02/12/22 15:22: POC Glucose 314 H 02/12/22 21:31: POC Glucose 227 H 02/13/22 03:57: POC Glucose 215 H 02/13/22 05:35: Sodium 132 L, Potassium 4.3, Chloride 99, Carbon Dioxide 30.0, Anion Gap 3 L, BUN 20 H, Creatinine 0.96, Estim Creat Clear Calc 99.22, Est GFR (MDRD) Af Amer 110, Est GFR (MDRD) Non-Af 91, BUN/Creatinine Ratio 20.9 H, Glucose 194 H, Calcium 8.9, Total Bilirubin 0.70, AST 40 H, ALT 105 H, Alkaline Phosphatase 101, Total Protein 7.9, Albumin 2.7 L, Globulin 5.2 H, Albumin/Globulin Ratio 0.5 L 02/13/22 05:35: WBC 8.5, RBC 4.95, Hgb 14.4, Hct 41.1, MCV 83.0, MCH 29.1, MCHC 35.0, RDW Std Deviation 39.0, RDW Coeff of Wes 12.9, Plt Count 180, MPV 9.1, Immature Gran % (Auto) 1.800 H, Neut % (Auto) 89.0 H, Lymph % (Auto) 6.1 L, [place] % (Auto) 2.5, Eos % (Auto) 0.5, Baso % (Auto) 0.1, Absolute Neuts (auto) 7.6, Absolute Lymphs (auto) 0.52 L, Nucleated RBC % 0, Differential Comment SCANNED 02/13/22 05:35: Hemoglobin A1c 6.8 H Micro: Microbiology 02/09/22 17:50 Interface Orders Gram Stain - Final 02/09/22 17:50 Interface Orders Respiratory Culture - Final Staphylococcus aureus Physical Exam Const alert, oriented x3 and no apparent distress General Appearance: cooperative Nutritional Appearance: obese HEENT normocephalic, head/scalp atraumatic and moist oral mucous membranes Eyes PERRL, EOMs intact bilaterally and conjunctivae normal Neck supple General: trachea midline Chest inspection of chest normal Resp normal respiratory effort and no use of accessory muscles Effort and Inspection: able to speak in complete sentences Auscultation: diminished lung sounds; Negative for rales, rhonchi or wheezes Cardio regular rate, regular rhythm, no murmurs, no rub and no gallops GI normal to inspection, nondistended, normoactive bowel sounds Extremity no clubbing, cyanosis or edema Skin no rashes or lesions noted Neuro CN's II-XII intact bilaterally, moves all extremities and no focal motor deficits Psych cooperative and affect normal Charges/Coding Visit Charges Inpatient E&M: 49103 Subs Hosp L2
[2022-02-13] MEDS: APIXABAN 5 MG TABLET 10 MG PO ×2 (10:23→21:28)
[2022-02-13] MEDS: guaiFENesin 1,200 MG Tablet 1200 MG PO ×2 (10:23→21:27)
[2022-02-13] MEDS: Pantoprazole Sodium 40 MG Tablet PO (10:24)
[2022-02-13] MEDS: levoFLOXacin IV 750 MG/150 ML BAG 100 MG IV (10:24)
[2022-02-13] MEDS: Furosemide 20 MG Tablet PO (10:35)
--- NOTE | 2022-02-13 10:47 | PCM.PN.HOSP ---
Subjective Subjective Breathing well. Complains of pain in throat with incentive spirometer. No difficulty swallowing. Objective Data Objective Data Vital Signs: Vital Signs Temp Pulse Resp BP Pulse Ox 36.6 C 80 18 122/65 H 95 02/13/22 08:32 02/13/22 08:32 02/13/22 08:32 02/13/22 08:32 02/13/22 08:32 Oxygen Flow Rate (L/min) [ 15 AMBULATING with Oxygen #2] Oxygen Flow Rate (L/min) [ 6 AMBULATING with Oxygen #1] Oxygen Flow Rate (L/min) [At 6 REST with Oxygen] Oxygen Flow Rate (L/min) 12 Oxygen Delivery Method High Flow Weight: 109.2 kg Body Mass Index (BMI) 33.0 Intake & Output: Intake and Output for Last 24 Hours 02/11/22 02/12/22 02/13/22 23:59 23:59 23:59 Intake Total 150 / 150 900 / 900 Output Total 1850 / 1850 2300 / 2300 300 / 300 Balance -1700 / -1700 -1400 / -1400 -300 / -300 Medical Nutrition Assessment Dietitian: Malnutrition Criteria Met Start: 02/08/22 12:10 Freq: Status: Active Protocol: Document 02/11/22 10:37 MAIA (Rec: 02/11/22 10:37 MAIA [id number]) Nutrition Malnutrition Evidence of Malnutrition Exists Yes Malnutrition (moderate): Acute Illness/Injury Evidenced By Suboptimal Energy Intake ( Moderate),Weight Loss ( Moderate) Intake Problem Inadequate Oral Intake Etiology r/t acute illness Signs/Symptoms as evidenced by 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, 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, estimated PO intake meeting <75% of estimated energy needs >1 week Status Inactive Problem Clinical Problem Acute Disease or Injury Related Malnutrition Etiology moderate, acute malnutrition r /t inadequate energy intake w/ increased energy needs d/t COVID illness Signs/Symptoms as evidenced by PO intake meeting <50% of estimated energy needs >1 week; 5.9% unintentional wt loss over ~1- 2 weeks - po intake improving per pt Status Active Problem Recommendation Dietitian Recommendations/Changes regular diet, 240mL ensure enlive w/ meals as tolerated d /t acute malnutrition Lab / Micro Data Result Diagrams: 02/13/22 05:35 02/13/22 05:35 Labs: Laboratory Results - last 24 hr 02/12/22 10:54: POC Glucose 347 H 02/12/22 15:22: POC Glucose 314 H 02/12/22 21:31: POC Glucose 227 H 02/13/22 03:57: POC Glucose 215 H 02/13/22 05:35: Sodium 132 L, Potassium 4.3, Chloride 99, Carbon Dioxide 30.0, Anion Gap 3 L, BUN 20 H, Creatinine 0.96, Estim Creat Clear Calc 99.22, Est GFR (MDRD) Af Amer 110, Est GFR (MDRD) Non-Af 91, BUN/Creatinine Ratio 20.9 H, Glucose 194 H, Calcium 8.9, Total Bilirubin 0.70, AST 40 H, ALT 105 H, Alkaline Phosphatase 101, Total Protein 7.9, Albumin 2.7 L, Globulin 5.2 H, Albumin/Globulin Ratio 0.5 L 02/13/22 05:35: WBC 8.5, RBC 4.95, Hgb 14.4, Hct 41.1, MCV 83.0, MCH 29.1, MCHC 35.0, RDW Std Deviation 39.0, RDW Coeff of Wes 12.9, Plt Count 180, MPV 9.1, Immature Gran % (Auto) 1.800 H, Neut % (Auto) 89.0 H, Lymph % (Auto) 6.1 L, [place] % (Auto) 2.5, Eos % (Auto) 0.5, Baso % (Auto) 0.1, Absolute Neuts (auto) 7.6, Absolute Lymphs (auto) 0.52 L, Nucleated RBC % 0, Differential Comment SCANNED 02/13/22 05:35: Hemoglobin A1c 6.8 H Micro: Microbiology 02/09/22 17:50 Interface Orders Gram Stain - Final 02/09/22 17:50 Interface Orders Respiratory Culture - Final Staphylococcus aureus Physical Exam Const alert and no apparent distress HEENT HEENT Narrative: irritation of soft palate. no thrush. Resp normal respiratory effort, no retractions, no use of accessory muscles and clear to auscultation bilaterally Cardio regular rate, regular rhythm, S1 normal heart sound and S2 normal heart sound GI normal to inspection, nondistended, normoactive bowel sounds, soft to palpation and non-tender Skin no rashes or lesions noted and no wounds Neuro Sensorium / Orientation: awake and alert Assessment & Plan Assessment/Plan (1) Transaminitis: (2) Epistaxis: (3) Acute respiratory failure with hypoxia: (4) Pneumonia due to 2019 novel coronavirus: PLAN: 1. acute hypoxic respiratory failure improving 2/2 COVID 19 pneumonia and MSSA pneumonia wean oxygen as tolerated continue IS and accapella valve 2. COVID 19 pneumonia unvaccinated onset 01/29 quarantine through 02/18 on dexamethasone through the on baricitinib through the pt was not started on remdesivir 3. MSSA pneumonia change to levaquin and treat through the . 4. BLE DVTs likely due to hypercoagulable state from COVID 19 no personal nor family history of VTE start apixaban and monitor for #5. 5. epistaxis x2, per pt, one occurred while on BiPAP and BP was elevated none since 6. DM2 a1c 6.8 aggravated by steroids carb-control diet SSI 7. VTE prophylaxis: anticoagulated Charges/Coding Visit Charges Inpatient E&M: 71572 Subs Hosp L2
[2022-02-13 12:26] LABS: Bedside Glucose 331 mg/dL (74-106)
[2022-02-13] MEDS: BENZOCAINE/MENTHOL 1 LOZENGE MUCOUS MEM ×2 (15:00→21:31)
[2022-02-13] MEDS: Acetaminophen 325 MG Tablet 650 MG PO (21:28)
[2022-02-13] MEDS: MELATONIN 3 MG TABLET PO (21:29)
[2022-02-13 21:56] LABS: Bedside Glucose 298 mg/dL (74-106)
[2022-02-14] VITALS (10 sets, daily range): BP systolic 115–124; BP diastolic 76–82; PULSE 83–102; RESP 18; TEMP 36.6–36.9; O2SAT 91–97
[2022-02-14 01:11] LABS: Bedside Glucose 277 mg/dL (74-106)
[2022-02-14 06:11] LABS: Absolute Lymphocyte Count 0.54 X10^3/uL (0.83-4.51); Absolute Neutrophil Count 6.9 X10^3/uL (2.0-7.7); Basophil# 0.01 X10^3/uL; Basophil% 0.1 % (0-1); Eosinophil# 0.05 X10^3/uL; Eosinophils% 0.6 % (0-5); Hematocrit 38.5 % (40-54); Hemoglobin 13.2 g/dL (13.0-16.5); Lymphocyte # 0.54 X10^3/ul (0.83-4.51); Lymphocyte % 6.9 % (19-41); Mean Corp Hgb Conc 34.3 g/dL (32-36); Mean Corpuscular Hgb 28.1 pg (27.0-32.0); Mean Corpuscular Volume 81.9 fL (80-94); Mean Platelet Vol. 9.4 fl (6.2-12.0); Monocyte# 0.22 X10^3/uL; Monocyte% 2.8 % (0-10); NRBC Flagged by Analyzer 0 % (0-5); Neutrophil # 6.88 X10^3/uL (2.7-7.7); Neutrophil % 87.9 % (47-70); POSITIVE DIFFERENTIAL YES; Platelet Count 192 K/mm3 (150-450); RBC Distribution Width CV 12.9 % (11.6-14.6); White Blood Count 7.8 K/mm3 (4.4-11.0)
[2022-02-14] MEDS: BENZOCAINE/MENTHOL 1 LOZENGE MUCOUS MEM ×2 (06:22→10:04)
[2022-02-14] MEDS: Pantoprazole Sodium 40 MG Tablet PO (06:22)
[2022-02-14] MEDS: Insulin Lispro 100 UNIT/ML INSULN.PEN SC ×4 (06:24→22:29)
[2022-02-14 06:25] LABS: Bedside Glucose 245 mg/dL (74-106)
[2022-02-14 06:26] LABS: Differential Indicated SCAN CRITERIA MET
[2022-02-14 06:47] LABS: Differential Comment SCANNED
[2022-02-14 06:48] LABS: Anion Gap 4 (5-15); BUN 23 mg/dL (7-18); BUN/Creat Ratio 26.4 RATIO (10-20); Calcium,Total 8.7 mg/dL (8.5-10.1); Chloride 102 mmol/L (98-107); Creatinine, Serum 0.87 mg/dL (0.70-1.30); EST Glomerular Filtration Rate 102 mL/min (>60); Est Glom Filt Rate - Afr Amer 123 mL/min (>60); Estimated Creatinine Clearance 109.48 ml/min; Glucose 266 mg/dL (74-106); Potassium 4.5 mmol/L (3.5-5.1); Sodium Level 133 mmol/L (136-145)
--- NOTE | 2022-02-14 09:29 | PCM.PN.INT ---
Assessment & Plan Assessment/Plan (1) Pneumonia due to 2019 novel coronavirus: PLAN: RECOMMENDATIONS: 1. Continue to wean FiO2 to maintain oxygen saturations at or above 90%. 2. Complete 7 days of antimicrobials for MSSA pneumonia 3. Continue Decadron (02/15/2022) and baricitinib (02/18/2022) as ordered. 4. Awake prone positioning was encouraged. 5. Continue to monitor for bleeding complications 6. Challenge with diuretics today IMPRESSIONS: 1. Shortness of breath with associated hypoxemia secondary to COVID-19 and MSSA pneumonia The patient presented to the hospital with worsening dyspnea and new onset hypoxemia, which has progressed since his initial hospital admission. The patient was deemed to be outside of the window for the initiation of remdesivir. However, in light of his rapidly escalating oxygen requirements and elevated CRP, he was started on baricitinib. Patient appears to have stabilized on nasal cannula oxygen. Monitor closely for bleeding complications from epistaxis, but tolerating anticoagulation well at this point. Plan to wean FiO2 as tolerated to maintain saturations at or above 90%. The patient will be continued on antimicrobials for MSSA pneumonia and Decadron. Intermittent use of diuretics can be entertained to maintain euvolemic state. Discussed discharge if patient able to ambulate on 6 L or less 2. Lower extremity DVT Although the patient was initiated on a weight-based heparin infusion, a short time later the patient developed significant epistaxis. He was not felt to be a candidate for cautery, per ENT. Accordingly, the patient systemic anticoagulation was discontinued. Patient appears to be tolerating anticoagulation at this time. Stressed to the patient the importance of using nasal saline to avoid recurrent epistaxis 3. History of obstructive sleep apnea/obesity The patient does report a known history of sleep apnea and apparently utilizes Pap therapy on a nightly basis. Continue nocturnal BiPAP therapy per home regimen. Patient does have a chinstrap and is compliant. This note was generated with [employer] dictation software. It may contain incorrect words, spelling, and punctuation that were not noted in checking the note before signing. Subjective Subjective Patient did well overnight. Patient subjectively feels improved compared to previous. Patient continues to report minimal cough. Patient is stating that he feels he is moving around better today than he has in the past. Patient able to tolerate sleep apnea machine without difficulty. No repeat epistaxis has been reported. Objective Data Objective Data Vital Signs: Vital Signs Temp Pulse Resp BP Pulse Ox 36.7 C 83 18 124/82 H 93 02/14/22 06:32 02/14/22 06:32 02/14/22 06:32 02/14/22 06:32 02/14/22 07:57 Oxygen Flow Rate (L/min) [ 15 AMBULATING with Oxygen #2] Oxygen Flow Rate (L/min) [ 6 AMBULATING with Oxygen #1] Oxygen Flow Rate (L/min) [At 6 REST with Oxygen] Oxygen Flow Rate (L/min) 7 Oxygen Delivery Method High Flow Weight: 108.454 kg Body Mass Index (BMI) 33.0 Intake & Output: Intake and Output for Last 24 Hours 02/12/22 02/13/22 02/14/22 23:59 23:59 23:59 Intake Total 900 / 900 950 / 950 Output Total 2300 / 2300 1600 / 1600 Balance -1400 / -1400 -650 / -650 Medical Nutrition Assessment Dietitian: Malnutrition Criteria Met Start: 02/08/22 12:10 Freq: Status: Active Protocol: Document 02/11/22 10:37 MAIA (Rec: 02/11/22 10:37 MAIA [id number]) Nutrition Malnutrition Evidence of Malnutrition Exists Yes Malnutrition (moderate): Acute Illness/Injury Evidenced By Suboptimal Energy Intake ( Moderate),Weight Loss ( Moderate) Intake Problem Inadequate Oral Intake Etiology r/t acute illness Signs/Symptoms as evidenced by 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, 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, estimated PO intake meeting <75% of estimated energy needs >1 week Status Inactive Problem Clinical Problem Acute Disease or Injury Related Malnutrition Etiology moderate, acute malnutrition r /t inadequate energy intake w/ increased energy needs d/t COVID illness Signs/Symptoms as evidenced by PO intake meeting <50% of estimated energy needs >1 week; 5.9% unintentional wt loss over ~1- 2 weeks - po intake improving per pt Status Active Problem Recommendation Dietitian Recommendations/Changes regular diet, 240mL ensure enlive w/ meals as tolerated d /t acute malnutrition Lab / Micro Data Result Diagrams: 02/14/22 05:35 02/14/22 05:35 Labs: Laboratory Results - last 24 hr 02/13/22 05:35: Hemoglobin A1c 6.8 H 02/13/22 11:43: POC Glucose 331 H 02/13/22 16:20: POC Glucose 277 H 02/13/22 21:28: POC Glucose 298 H 02/14/22 05:35: WBC 7.8, RBC 4.70, Hgb 13.2, Hct 38.5 L, MCV 81.9, MCH 28.1, MCHC 34.3, RDW Std Deviation 39.0, RDW Coeff of Wes 12.9, Plt Count 192, MPV 9.4, Immature Gran % (Auto) 1.700 H, Neut % (Auto) 87.9 H, Lymph % (Auto) 6.9 L, [place] % (Auto) 2.8, Eos % (Auto) 0.6, Baso % (Auto) 0.1, Absolute Neuts (auto) 6.9, Absolute Lymphs (auto) 0.54 L, Nucleated RBC % 0, Differential Comment SCANNED 02/14/22 05:35: Sodium 133 L, Potassium 4.5, Chloride 102, Carbon Dioxide 27.0, Anion Gap 4 L, BUN 23 H, Creatinine 0.87, Estim Creat Clear Calc 109.48, Est GFR (MDRD) Af Amer 123, Est GFR (MDRD) Non-Af 102, BUN/Creatinine Ratio 26.4 H, Glucose 266 H, Calcium 8.7 02/14/22 06:17: POC Glucose 245 H Micro: Microbiology 02/09/22 17:50 Interface Orders Gram Stain - Final 02/09/22 17:50 Interface Orders Respiratory Culture - Final Staphylococcus aureus Physical Exam Const alert, oriented x3 and no apparent distress General Appearance: cooperative Nutritional Appearance: obese HEENT normocephalic, head/scalp atraumatic and moist oral mucous membranes Eyes PERRL, EOMs intact bilaterally and conjunctivae normal Neck supple General: trachea midline Chest inspection of chest normal Resp normal respiratory effort and no use of accessory muscles Effort and Inspection: able to speak in complete sentences Auscultation: diminished lung sounds; Negative for rales, rhonchi or wheezes Cardio regular rate, regular rhythm, no murmurs, no rub and no gallops GI normal to inspection, nondistended, normoactive bowel sounds Extremity no clubbing, cyanosis or edema Skin no rashes or lesions noted Neuro CN's II-XII intact bilaterally, moves all extremities and no focal motor deficits Psych cooperative and affect normal Charges/Coding Visit Charges Inpatient E&M: 60610 Subs Hosp L2
[2022-02-14] MEDS: guaiFENesin 1,200 MG Tablet 1200 MG PO ×2 (10:04→22:27)
[2022-02-14] MEDS: levoFLOXacin IV 750 MG/150 ML BAG 100 MG IV (10:04)
[2022-02-14] MEDS: APIXABAN 5 MG TABLET 10 MG PO ×2 (10:04→22:27)
[2022-02-14] MEDS: Furosemide 20 MG Tablet PO (10:04)
[2022-02-14] MEDS: dexAMETHasone 10 MG/ML Vial 6 MG IV (10:05)
[2022-02-14 12:26] LABS: Bedside Glucose 435 mg/dL (74-106)
--- NOTE | 2022-02-14 13:20 | PCM.PN.HOSP ---
Subjective Subjective Breathing well. Oxygen decreased to 7 liters nasal cannula. Objective Data Objective Data Vital Signs: Vital Signs Temp Pulse Resp BP Pulse Ox 36.9 C 100 18 116/82 H 95 02/14/22 10:00 02/14/22 10:00 02/14/22 10:00 02/14/22 10:00 02/14/22 10:00 Oxygen Flow Rate (L/min) [ 15 AMBULATING with Oxygen #2] Oxygen Flow Rate (L/min) [ 6 AMBULATING with Oxygen #1] Oxygen Flow Rate (L/min) [At 6 REST with Oxygen] Oxygen Flow Rate (L/min) 7 Oxygen Delivery Method Room Air Weight: 108.454 kg Body Mass Index (BMI) 33.0 Intake & Output: Intake and Output for Last 24 Hours 02/12/22 02/13/22 02/14/22 23:59 23:59 23:59 Intake Total 900 / 900 950 / 950 Output Total 2300 / 2300 1600 / 1600 Balance -1400 / -1400 -650 / -650 Medical Nutrition Assessment Dietitian: Malnutrition Criteria Met Start: 02/08/22 12:10 Freq: Status: Active Protocol: Document 02/11/22 10:37 MAIA (Rec: 02/11/22 10:37 MAIA [id number]) Nutrition Malnutrition Evidence of Malnutrition Exists Yes Malnutrition (moderate): Acute Illness/Injury Evidenced By Suboptimal Energy Intake ( Moderate),Weight Loss ( Moderate) Intake Problem Inadequate Oral Intake Etiology r/t acute illness Signs/Symptoms as evidenced by 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, 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, estimated PO intake meeting <75% of estimated energy needs >1 week Status Inactive Problem Clinical Problem Acute Disease or Injury Related Malnutrition Etiology moderate, acute malnutrition r /t inadequate energy intake w/ increased energy needs d/t COVID illness Signs/Symptoms as evidenced by PO intake meeting <50% of estimated energy needs >1 week; 5.9% unintentional wt loss over ~1- 2 weeks - po intake improving per pt Status Active Problem Recommendation Dietitian Recommendations/Changes regular diet, 240mL ensure enlive w/ meals as tolerated d /t acute malnutrition Lab / Micro Data Result Diagrams: 02/14/22 05:35 02/14/22 05:35 Labs: Laboratory Results - last 24 hr 02/13/22 16:20: POC Glucose 277 H 02/13/22 21:28: POC Glucose 298 H 02/14/22 05:35: WBC 7.8, RBC 4.70, Hgb 13.2, Hct 38.5 L, MCV 81.9, MCH 28.1, MCHC 34.3, RDW Std Deviation 39.0, RDW Coeff of Wes 12.9, Plt Count 192, MPV 9.4, Immature Gran % (Auto) 1.700 H, Neut % (Auto) 87.9 H, Lymph % (Auto) 6.9 L, [place] % (Auto) 2.8, Eos % (Auto) 0.6, Baso % (Auto) 0.1, Absolute Neuts (auto) 6.9, Absolute Lymphs (auto) 0.54 L, Nucleated RBC % 0, Differential Comment SCANNED 02/14/22 05:35: Sodium 133 L, Potassium 4.5, Chloride 102, Carbon Dioxide 27.0, Anion Gap 4 L, BUN 23 H, Creatinine 0.87, Estim Creat Clear Calc 109.48, Est GFR (MDRD) Af Amer 123, Est GFR (MDRD) Non-Af 102, BUN/Creatinine Ratio 26.4 H, Glucose 266 H, Calcium 8.7 02/14/22 06:17: POC Glucose 245 H 02/14/22 12:18: POC Glucose 435 H Micro: Microbiology 02/09/22 17:50 Interface Orders Gram Stain - Final 02/09/22 17:50 Interface Orders Respiratory Culture - Final Staphylococcus aureus Physical Exam Const alert and no apparent distress Resp normal respiratory effort, no retractions, no use of accessory muscles and clear to auscultation bilaterally Cardio regular rate, regular rhythm, S1 normal heart sound and S2 normal heart sound GI normal to inspection, nondistended, normoactive bowel sounds, soft to palpation and non-tender Assessment & Plan Assessment/Plan (1) Transaminitis: (2) Epistaxis: (3) Acute respiratory failure with hypoxia: (4) Pneumonia due to 2019 novel coronavirus: PLAN: 1. acute hypoxic respiratory failure improving 2/2 COVID 19 pneumonia and MSSA pneumonia wean oxygen as tolerated continue IS and accapella valve 2. COVID 19 pneumonia unvaccinated onset 01/29 quarantine through 02/18 on dexamethasone through the on baricitinib through the pt was not started on remdesivir 3. MSSA pneumonia change to levaquin and treat through the . 4. BLE DVTs likely due to hypercoagulable state from COVID 19 no personal nor family history of VTE start apixaban and monitor for #5. 5. epistaxis x2, per pt, one occurred while on BiPAP and BP was elevated none since 6. DM2 a1c 6.8 aggravated by steroids carb-control diet SSI 7. VTE prophylaxis: anticoagulated Charges/Coding Visit Charges Inpatient E&M: 23866 Subs Hosp L2
[2022-02-14 17:45] LABS: Bedside Glucose 385 mg/dL (74-106)
[2022-02-14] MEDS: MELATONIN 3 MG TABLET PO (23:10)
[2022-02-14 23:21] LABS: Bedside Glucose 278 mg/dL (74-106)
[2022-02-15 06:00] VITALS: BP 123/64; PULSE 87; RESP 18; TEMP 36.4; O2SAT 97
[2022-02-15 06:42] VITALS: O2SAT 80; O2SAT 91; O2SAT 98; O2SAT 99
[2022-02-15] MEDS: Pantoprazole Sodium 40 MG Tablet PO (06:42)
[2022-02-15 06:56] LABS: Absolute Lymphocyte Count 0.76 X10^3/uL (0.83-4.51); Absolute Neutrophil Count 6.4 X10^3/uL (2.0-7.7); Basophil# 0.01 X10^3/uL; Basophil% 0.1 % (0-1); Eosinophil# 0.06 X10^3/uL; Eosinophils% 0.8 % (0-5); Hematocrit 40.8 % (40-54); Hemoglobin 14.1 g/dL (13.0-16.5); Lymphocyte # 0.76 X10^3/ul (0.83-4.51); Lymphocyte % 9.9 % (19-41); Mean Corp Hgb Conc 34.6 g/dL (32-36); Mean Corpuscular Hgb 28.2 pg (27.0-32.0); Mean Corpuscular Volume 81.6 fL (80-94); Monocyte# 0.34 X10^3/uL; Monocyte% 4.4 % (0-10); NRBC Flagged by Analyzer 0 % (0-5); Neutrophil # 6.35 X10^3/uL (2.7-7.7); Neutrophil % 82.8 % (47-70); Platelet Count 195 K/mm3 (150-450); RBC Distribution Width CV 12.9 % (11.6-14.6); RBC Distribution Width SD 38.4 fl (35.1-43.9); White Blood Count 7.7 K/mm3 (4.4-11.0)
[2022-02-15] MEDS: Insulin Lispro 100 UNIT/ML INSULN.PEN SC (07:01)
[2022-02-15 07:10] LABS: Bedside Glucose 218 mg/dL (74-106)
[2022-02-15 07:23] LABS: ALB/GLOB Ratio 0.5 RATIO (0.9-2.4); AST(SGOT) 34 U/L (15-37); Alanine Aminotransfer ALT/SGPT 108 U/L (16-61); Albumin, Serum 2.5 g/dL (3.2-5.0); Alkaline Phosphatase 78 U/L (45-117); Anion Gap 4 (5-15); BUN 23 mg/dL (7-18); BUN/Creat Ratio 21.3 RATIO (10-20); Calcium,Total 9.2 mg/dL (8.5-10.1); Chloride 102 mmol/L (98-107); Creatinine, Serum 1.08 mg/dL (0.70-1.30); EST Glomerular Filtration Rate 79 mL/min (>60); Est Glom Filt Rate - Afr Amer 96 mL/min (>60); Estimated Creatinine Clearance 88.19 ml/min; Globulin 4.8 g/dL (2.2-4.2); Glucose 209 mg/dL (74-106); Potassium 4.8 mmol/L (3.5-5.1); Protein, Total 7.3 g/dL (6.4-8.2); Sodium Level 133 mmol/L (136-145)
--- NOTE | 2022-02-15 08:21 | PCM.PN.INT ---
Assessment & Plan Assessment/Plan (1) Pneumonia due to 2019 novel coronavirus: PLAN: RECOMMENDATIONS: 1. Continue to wean FiO2 to maintain oxygen saturations at or above 90%. 2. Completed 7 days of antimicrobials for MSSA pneumonia 3. Completed Decadron. No baricitinib needed if discharged 4. Obtain walking oximetry. Discharge if tolerates 6 L or less with ambulation 5. Anticipate 3 to 6 months of anticoagulation for DVT 6. Follow-up in our office in 4 to 6 weeks if discharged IMPRESSIONS: 1. Shortness of breath with associated hypoxemia secondary to COVID-19 and MSSA pneumonia The patient presented to the hospital with worsening dyspnea and new onset hypoxemia, which has progressed since his initial hospital admission. The patient was deemed to be outside of the window for the initiation of remdesivir. However, in light of his rapidly escalating oxygen requirements and elevated CRP, he was started on baricitinib. Patient much improved over the last 24 to 48 hours. Will obtain a walking oximetry today. If able to tolerate ambulation on 6 L or less, can be discharged from a pulmonary perspective. Patient has completed Decadron and baricitinib will not be necessary. Patient instructed on the proper use of supplemental oxygen. Patient should follow-up in our office with nurse practitioner in 4 to 6 weeks 2. Lower extremity DVT Although the patient was initiated on a weight-based heparin infusion, a short time later the patient developed significant epistaxis. He was not felt to be a candidate for cautery, per ENT. Accordingly, the patient systemic anticoagulation was discontinued. Patient appears to be tolerating anticoagulation at this time. Stressed to the patient the importance of using nasal saline to avoid recurrent epistaxis. Anticipate 3 to 6 months of anticoagulation. 3. History of obstructive sleep apnea/obesity The patient does report a known history of sleep apnea and apparently utilizes Pap therapy on a nightly basis. Continue nocturnal BiPAP therapy per home regimen. Patient does have a chinstrap and is compliant. This note was generated with [employer] dictation software. It may contain incorrect words, spelling, and punctuation that were not noted in checking the note before signing. Subjective Subjective Patient did well overnight. No acute issues were reported. Patient subjectively feels improved compared to yesterday. Patient reports only minimal cough. Oxygen requirements have improved significantly. Patient excited about possibly going home Objective Data Objective Data Vital Signs: Vital Signs Temp Pulse Resp BP Pulse Ox 36.4 C L 87 18 123/64 H 99 02/15/22 06:00 02/15/22 06:00 02/15/22 06:00 02/15/22 06:00 02/15/22 06:42 Oxygen Flow Rate (L/min) [ 3.5 AMBULATING with Oxygen #3] Oxygen Flow Rate (L/min) [ 2 AMBULATING with Oxygen #2] Oxygen Flow Rate (L/min) [ 4 AMBULATING with Oxygen #1] Oxygen Flow Rate (L/min) [At 4 REST with Oxygen] Oxygen Flow Rate (L/min) 3 Oxygen Delivery Method Nasal Cannula Weight: 108.4 kg Body Mass Index (BMI) 33.0 Intake & Output: Intake and Output for Last 24 Hours 02/13/22 02/14/22 02/15/22 23:59 23:59 23:59 Intake Total 950 / 950 450 / 1250 800 / 800 Output Total 1600 / 1600 Balance -650 / -650 450 / 1250 800 / 800 Medical Nutrition Assessment Dietitian: Malnutrition Criteria Met Start: 02/08/22 12:10 Freq: Status: Active Protocol: Document 02/11/22 10:37 [facility] (Rec: 02/11/22 10:37 [facility] [id number]) Nutrition Malnutrition Evidence of Malnutrition Exists Yes Malnutrition (moderate): Acute Illness/Injury Evidenced By Suboptimal Energy Intake ( Moderate),Weight Loss ( Moderate) Intake Problem Inadequate Oral Intake Etiology r/t acute illness Signs/Symptoms as evidenced by 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, 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, estimated PO intake meeting <75% of estimated energy needs >1 week Status Inactive Problem Clinical Problem Acute Disease or Injury Related Malnutrition Etiology moderate, acute malnutrition r /t inadequate energy intake w/ increased energy needs d/t COVID illness Signs/Symptoms as evidenced by PO intake meeting <50% of estimated energy needs >1 week; 5.9% unintentional wt loss over ~1- 2 weeks - po intake improving per pt Status Active Problem Recommendation Dietitian Recommendations/Changes regular diet, 240mL ensure enlive w/ meals as tolerated d /t acute malnutrition Lab / Micro Data Result Diagrams: 02/15/22 06:45 02/15/22 06:45 Labs: Laboratory Results - last 24 hr 02/14/22 12:18: POC Glucose 435 H 02/14/22 17:23: POC Glucose 385 H 02/14/22 22:24: POC Glucose 278 H 02/15/22 06:45: WBC 7.7, RBC 5.00, Hgb 14.1, Hct 40.8, MCV 81.6, MCH 28.2, MCHC 34.6, RDW Std Deviation 38.4, RDW Coeff of Wes 12.9, Plt Count 195, MPV 9.0, Immature Gran % (Auto) 2.000 H, Neut % (Auto) 82.8 H, Lymph % (Auto) 9.9 L, [place] % (Auto) 4.4, Eos % (Auto) 0.8, Baso % (Auto) 0.1, Absolute Neuts (auto) 6.4, Absolute Lymphs (auto) 0.76 L, Nucleated RBC % 0 02/15/22 06:45: Sodium 133 L, Potassium 4.8, Chloride 102, Carbon Dioxide 27.0, Anion Gap 4 L, BUN 23 H, Creatinine 1.08, Estim Creat Clear Calc 88.19, Est GFR (MDRD) Af Amer 96, Est GFR (MDRD) Non-Af 79, BUN/Creatinine Ratio 21.3 H, Glucose 209 H, Calcium 9.2, Total Bilirubin 0.50, AST 34, ALT 108 H, Alkaline Phosphatase 78, Total Protein 7.3, Albumin 2.5 L, Globulin 4.8 H, Albumin/Globulin Ratio 0.5 L 02/15/22 06:47: POC Glucose 218 H Micro: Microbiology 02/09/22 17:50 Interface Orders Gram Stain - Final 02/09/22 17:50 Interface Orders Respiratory Culture - Final Staphylococcus aureus Physical Exam Const alert, oriented x3 and no apparent distress General Appearance: cooperative Nutritional Appearance: obese HEENT normocephalic, head/scalp atraumatic and moist oral mucous membranes Eyes PERRL, EOMs intact bilaterally and conjunctivae normal Neck supple General: trachea midline Chest inspection of chest normal Resp normal respiratory effort and no use of accessory muscles Effort and Inspection: able to speak in complete sentences Auscultation: diminished lung sounds; Negative for rales, rhonchi or wheezes Cardio regular rate, regular rhythm, no murmurs, no rub and no gallops GI normal to inspection, nondistended, normoactive bowel sounds Extremity no clubbing, cyanosis or edema Skin no rashes or lesions noted Neuro CN's II-XII intact bilaterally, moves all extremities and no focal motor deficits Psych cooperative and affect normal Charges/Coding Visit Charges Inpatient E&M: 99356 Subs Hosp L2
--- NOTE | 2022-02-15 09:03 | PCM.DC ---
Discharge Instructions Diet Discharge Diet: 2000 Calorie Control Diet Dressing / Incision Call your doctor if you observe: Fever of 101 or Higher and Shortness of breath Follow Up Care Test Results: Test results from this visit will be discussed in further detail at your follow-up appointment, if applicable. Discharge Plan Admission Admit Date/Time: 02/04/22 23:33 Primary Reason for Your Visit: COVID 19. Pneumonia. DVT Attending Provider: Kofi Turner Primary Care Provider: Pedro Owens Consulting Providers: Chip Castañeda ; Butch Mack ; Rebecca Weeks NP ; Naga Pedersen Instructions Patient Instructions: Diabetes and Drinking Alcohol, Diabetes: Meal Planning, Diabetes Carbs Fats Protein, DVT/PE Discharge instruction sheet Additional Instructions / Restrictions: Self isolate for at least 20 days since symptoms began 01/30- AND at least one day (24 hours) have passed since resolution of fever without the use of fever-reducing agents AND improvement of symptoms (e.g., cough, shortness of breath) When around people in the same room, wear a face mask. Individuals also in the room should wear a mask. If possible, use a different bathroom and bedroom. Perform adequate hand hygiene. Avoid sharing dishes, glasses, etc. Discharge Orders/Prescriptions Prescriptions: New metformin 500 mg tablet 500 mg PO DAILY Qty: 30 RF: 0 apixaban 5 mg tablet 5 mg PO BID Qty: 60 RF: 2 Continued pantoprazole [Protonix] 40 mg Tablet,Delayed Release (Dr/Ec) 40 mg PO DAILY RF: 0 Other Ambulatory Orders: Glucometer (Routine) Location: None Selected Ordered By: Dr. Kofi Turner Referrals / Follow Up: Pedro Owens MD [Primary Care Provider] - Disposition Disposition (needs filled in before D/C Order can be placed): Home, Self Care
--- NOTE | 2022-02-15 09:21 | DS.PCM_ITS ---
Providers Date of Admission: 02/04/22 Primary Care Physician: Dr. 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 Routine Consulting Provider: Pulmonary Medicine [place] Reason for Consult: Covid-19 EMERGENT Consult: No Notified: Yes Date Notified: 02/05/22 Time Notified: 06:15 Method of Notification: Verbal 02/09/22 17:53 Consult: ENT Routine Consulting Provider: Naga Pedersen Reason for Consult: epistaxis and need for anticoagulant EMERGENT Consult: No Notified: Yes Date Notified: 02/09/22 Time Notified: 17:52 Method of Notification: Verbal Reason For Visit: COVID 19 Diagnosis Discharge Diagnosis (1) Pneumonia due to 2019 novel coronavirus: Status: Acute Code(s): U07.1 - COVID-19; J12.82 - Pneumonia due to coronavirus disease 2018 (2) DVT (deep venous thrombosis): Status: Acute Code(s): I82.409 - Acute embolism and thrombosis of unspecified deep veins of unspecified lower extremity Medications at Discharge Home Medications pantoprazole [Protonix] 40 mg PO DAILY 02/05/22 apixaban 5 mg PO BID #60 tab 02/15/22 metformin 500 mg PO DAILY #30 tab 02/15/22 Hospital Course Operations None Procedures None Summary of Care Provided Minutes Spent on Discharge: 40 Hospital Course: 41-year-old male presents with shortness of breath. Patient was found to have COVID-19. Date of onset was around January 30. Patient was started on dexamethasone but did not start remdesivir while he was here. Seen by infectious disease as well as pulmonology. Patient did require BiPAP and air Vo. Patient was also started on baricitinib. Patient also was positive for MSSA pneumonia and was on antibiotics and has completed that course. While he was here, patient was found to have bilateral lower extremity DVTs. Patient did develop a severe epistaxis x2 but that since resolved. Patient had tentative plan for an IVC filter but patient was started on apixaban and observed and did not have any further epistaxis. Epistaxis may been due to being placed on BiPAP where he may have caused him to be anxious and his blood pressure may have been up that may have precipitated that event. Patient been doing well with that. Cleared the patient that his DVTs were likely provoked due to his COVID-19 and would require 3 months of treatment with apixaban. While he was here patient's blood sugars were elevated primarily due to the steroids patient had a he moglobin A1c of 6.8. Discussed with patient that T likely has diabetes mellitus type 2 and recommended daily Metformin and will administer a glucometer. Patient advised to check his blood sugar daily alternating between days and evenings. 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 I did fill out his FMLA forms for him and gave him a return to work date for 04 March. Unclear if patient will be ready before that but he will need follow-up with his primary care physician to be released sooner. 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, estimated PO intake meeting <75% of estimated energy needs >1 week Status Inactive Problem Clinical Problem Acute Disease or Injury Related Malnutrition Etiology moderate, acute malnutrition r /t inadequate energy intake w/ increased energy needs d/t COVID illness Signs/Symptoms as evidenced by PO intake meeting <50% of estimated energy needs >1 week; 5.9% unintentional wt loss over ~1- 2 weeks - po intake improving per pt Status Active Problem Recommendation Dietitian Recommendations/Changes regular diet, 240mL ensure enlive w/ meals as tolerated d /t acute malnutrition Weight / BMI Weight Weight: 108.4 kg Body Mass Index (BMI) 33.0 ABG / Lab / Microbiology Data Result Diagrams: 02/15/22 06:45 02/15/22 06:45 Laboratory: Laboratory Results - last 24 hr 02/14/22 12:18: POC Glucose 435 H 02/14/22 17:23: POC Glucose 385 H 02/14/22 22:24: POC Glucose 278 H 02/15/22 06:45: WBC 7.7, RBC 5.00, Hgb 14.1, Hct 40.8, MCV 81.6, MCH 28.2, MCHC 34.6, RDW Std Deviation 38.4, RDW Coeff of Wes 12.9, Plt Count 195, MPV 9.0, Immature Gran % (Auto) 2.000 H, Neut % (Auto) 82.8 H, Lymph % (Auto) 9.9 L, [place] % (Auto) 4.4, Eos % (Auto) 0.8, Baso % (Auto) 0.1, Absolute Neuts (auto) 6.4, Absolute Lymphs (auto) 0.76 L, Nucleated RBC % 0 02/15/22 06:45: Sodium 133 L, Potassium 4.8, Chloride 102, Carbon Dioxide 27.0, Anion Gap 4 L, BUN 23 H, Creatinine 1.08, Estim Creat Clear Calc 88.19, Est GFR (MDRD) Af Amer 96, Est GFR (MDRD) Non-Af 79, BUN/Creatinine Ratio 21.3 H, Glucose 209 H, Calcium 9.2, Total Bilirubin 0.50, AST 34, ALT 108 H, Alkaline Phosphatase 78, Total Protein 7.3, Albumin 2.5 L, Globulin 4.8 H, Albumin/Globulin Ratio 0.5 L 02/15/22 06:47: POC Glucose 218 H Microbiology: Microbiology 02/09/22 17:50 Interface Orders Gram Stain - Final 02/09/22 17:50 Interface Orders Respiratory Culture - Final Staphylococcus aureus D/C Instructions Discharge Diet: 2000 Calorie Control Diet Call your doctor if you observe: Fever of 101 or Higher and Shortness of breath Meaningful Use Info Meaningful Use Diagnoses (Choose all that apply): None applicable Discharge Plan Admission Admit Date/Time: 02/04/22 23:33 Primary Reason for Your Visit: COVID 19. Pneumonia. DVT Attending Provider: Kofi Turner Primary Care Provider: Pedro Owens Consulting Providers: Chip Castañeda ; Butch Mack ; Rebecca Weeks NP ; Naga Pedersen Instructions Patient Instructions: Diabetes and Drinking Alcohol, Diabetes: Meal Planning, Diabetes Carbs Fats Protein, DVT/PE Discharge instruction sheet Additional Instructions / Restrictions: Self isolate for at least 20 days since symptoms began 3/2- AND at least one day (24 hours) have passed since resolution of fever without the use of fever-reducing agents AND improvement of symptoms (e.g., cough, shortness of breath) When around people in the same room, wear a face mask. Individuals also in the room should wear a mask. If possible, use a different bathroom and bedroom. Perform adequate hand hygiene. Avoid sharing dishes, glasses, etc. Check your blood sugar daily (in AM, before you eat and at night, before bed--a lternate daily). Keep a record and provide to your physician. Discharge Orders/Prescriptions Prescriptions: New metformin 500 mg tablet 500 mg PO DAILY Qty: 30 RF: 0 apixaban 5 mg tablet 5 mg PO BID Qty: 60 RF: 2 Continued pantoprazole [Protonix] 40 mg Tablet,Delayed Release (Dr/Ec) 40 mg PO DAILY RF: 0 Other Ambulatory Orders: Glucometer (Routine) Location: None Selected Ordered By: Dr. Kofi Turner Referrals / Follow Up: Pedro Owens MD [Primary Care Provider] - Disposition Disposition (needs filled in before D/C Order can be placed): Home, Self Care Charges/Coding Visit Charges Inpatient E&M: 53915 Disch Hosp
[2022-02-15 09:49] VITALS: BP 103/57; PULSE 104; RESP 18; TEMP 36.8; O2SAT 94
[2022-02-15 09:55] VITALS: O2SAT 83; O2SAT 87; O2SAT 89; O2SAT 93
[2022-02-15] MEDS: guaiFENesin 1,200 MG Tablet 1200 MG PO (10:09)
[2022-02-15] MEDS: APIXABAN 5 MG TABLET 10 MG PO (10:09)
--- NOTE | 2022-02-15 10:27 | CASEMGMT ---
Addendum entered by Norma Willingham 02/15/22 12:42: TC to [facility], the eliquis script has been received. Addendum entered by Norma Willingham 02/15/22 11:19: TC to [facility], spoke with Mariana, she states she has not received the rx yet. She is aware that the PA has been completed. Addendum entered by Norma Willingham 02/15/22 11:14: [facility]. He is agreeable to having the med sent to [facility]. Pt is aware of his oxygen needs at home=2L continuous. He has a pox at home and is aware to keep at 90% or higher and to notify his doctor if he needs increased oxygen. Pt is aware that he will go home with a portable tank and to call [facility] when he gets home to set up concentrator. He does not have anyone at home to set up prior to dc. Pt is aware that the oxygen will also be bled into his bipap. Pt denies further questions at this time. Addendum entered by Norma Willingham 02/15/22 11:09: TC back to Trina at [facility], she states that pt has a copay of $25 for the med. She states she does not have enough med to get him through the weekend until they can order more. Asked to have the rx trf to [facility] and provided her with the fax number. Addendum entered by Norma Willingham 02/15/22 11:00: TC to pt insurance, received approval for PA for eliquis. Case #[id number]. Coverage dates are 01/16/22-02/15/23 per Nicolle. Addendum entered by Norma Willingham 02/15/22 10:46: Per respiratory note, pt has home BIPAP. Script faxed to have bled into bipap. TC to [facility] to check cost of xarelto. Spoke with Trina, pt needs PA. Phone number provided . Original Note: Pt qualifies for home O2 at 2L continuous with bleed in to CPAP. Faxed [employer] script. Tank taken from [facility].
[2022-02-15 12:08] VITALS: BP 118/55; PULSE 99; RESP 18; TEMP 36.7; O2SAT 94
[2022-02-15 14:46] LABS: Bedside Glucose 266 mg/dL (74-106)
== END 2022-02-15 12:15 | disposition home or self-care (01) | DRG 177 ==
LOC: ED 23:03 → MS3 02-05 02:25
PROVIDERS: Internal Medicine; Internal Medicine Critical Care Medicine; Nurse Practitioner Family; Admitting Provider Family Medicine; Emergency Provider Emergency Medicine; PCP Internal Medicine
DX: U07.1 COVID-19 (principal); J96.01 Acute respiratory failure with hypoxia; J12.82 Pneumonia due to coronavirus disease 2019; J15.211 Pneumonia due to Methicillin susceptible Staphylococcus aureus; D68.69 Other thrombophilia; I82.441 Acute embolism and thrombosis of right tibial vein; I82.451 Acute embolism and thrombosis of right peroneal vein; E11.65 Type 2 diabetes mellitus with hyperglycemia; I82.463 Acute embolism and thrombosis of calf muscular vein, bilateral; G47.33 Obstructive sleep apnea (adult) (pediatric); K21.9 Gastro-esophageal reflux disease without esophagitis; E66.9 Obesity, unspecified; Z68.32 Body mass index [BMI] 32.0-32.9, adult; R04.0 Epistaxis; R74.01 Elevation of levels of liver transaminase levels; T38.0X5A Adverse effect of glucocorticoids and synthetic analogues, initial encounter; Z79.899 Other long term (current) drug therapy; Z87.891 Personal history of nicotine dependence
CPT/HCPCS: 36415; 71045; 71275; 80048; 80053; 82550; 82962; 83036; 83615; 83880; 84145; 84484; 85025; 85379; 85384; 85610; 85730; 86140; 87070; 87077; 87186; 87205; 87641; 93005; 93970; 94003; 94640; 94660; 94762; 97803; 99251; 99285; Q9967; A4216; G0463; J1940

== ENCOUNTER 2022-07-17 08:40 | Emergency (ER) | payer BC, SELFPAY ==
[2022-07-17 08:42] VITALS: BP 138/80; PULSE 80; RESP 14; TEMP 36.2; O2SAT 97; BMI 34.9
--- NOTE | 2022-07-17 08:51 | VDLE_ITS ---
Reason For Study: Swelling RIGHT LEFT GSV is normal. CFV is compressible, spontaneous, phasic, CFV is compressible, spontaneous, phasic, competent, and demonstrates normal competent and demonstrates normal augmentation. augmentation. FV is compressible, spontaneous, phasic, competent and demonstrates normal augmentation. POP V is compressible, spontaneous, phasic, competent and demonstrates normal augmentation. T/P Trunk is compressible. PTV is compressible. RT PerV is compressible. Procedure This is a venous duplex using B-mode, color flow and spectral Doppler. Exam performed portable in ED. A preliminary report was called and/or faxed to [facility]. VL/Venous Duplex US, Unilateral Interpretation Summary Deep veins of the right lower extremity are patent and compressible segmentally . There is no evidence of right lower extremity deep vein thrombosis. Valvular competence maria c ears intact within the proximal deep venous system on the right . The right great saphenous vein a ppears patent and compressible segmentally. Ordering Physician: Guru Snow Referring Physician: Pedro Owens Performed By: Maria L Garcia, ELBERT, RVT
--- NOTE | 2022-07-17 08:55 | EDS_ITS ---
HPI History of Present Illness Chief Complaint: Lower Extremity Injury Narrative Narrative: Patient has a history of DVT after COVID he was on apixaban for 3 months but he has been off of it. He has quadricep pain for the past few days no known injury. He has no inner thigh pain calf pain or lower extremity edema. He has no chest pain or shortness of breath. No abdominal pain or back pain. [facility] Medical History Diabetes mellitus, type 2 Former smoker GERD (gastroesophageal reflux disease) Obesity (BMI 30.0-34.9) LILIBETH (obstructive sleep apnea) Home Medications pantoprazole 40 mg tablet,delayed release (Protonix) 40 mg PO DAILY Check with primary doctor 02/05/22 [History Last Taken Unknown] apixaban 5 mg tablet 5 mg PO BID #60 tabs 02/15/22 [Rx Last Taken Unknown] metformin 500 mg tablet 500 mg PO DAILY #30 tabs 02/15/22 [Rx Last Taken Unknown] Allergy/AdvReac Type Severity Reaction Status Date / Time shellfish derived Allergy Severe Angioedema Verified 07/17/22 08:42 Social History Smoking Status: Former smoker ROS ROS ED ROS Narrative Past medical history: Reviewed Medications: Reviewed Social history: Noncontributory Review of systems: All systems negative except as indicated General: No fever Cardiovascular: No chest pain Respiratory: No shortness of breath or cough Gastrointestinal: No abdominal pain, nausea vomiting or diarrhea Genitourinary: No dysuria Musculoskeletal: Right quadricep pain as in HPI Skin: No rash Neurological: No memory loss, confusion or any focal weakness Psych: No recent behavioral changes Hematologic: No easy bleeding or easy bruising EXAM Physical Exam Narrative Exam Narrative: Physical exam General: Well nourished, Well developed, No Acute Distress Head: Normocephalic, Atraumatic Neck: Supple, Nontender, No lymphadenopathy Cardiovascular: Regular rate, Regular rhythm Respiratory: No distress, CTA bilaterally Abdomen: Soft, Nontender, Nondistended Back: Nontender, Normal Inspection. Negative for: CVA tenderness Extremities: Tenderness over the quadricep muscle, no inner thigh pain no calf pain. Negative Homans. Skin: Normal color, No rash Neurological: Alert, Normal Strength, Normal Sensation Psychological: Normal affect Const Vital Signs: 07/17/22 08:42 Temperature 97.2 F L Temperature Source Temporal Pulse Rate 80 Respiratory Rate 14 Blood Pressure 138/80 H Blood Pressure Mean 99 Pulse Ox 97 Oxygen Delivery Method Room Air MDM MDM MDM Narrative Medical decision making narrative: Patient's ultrasounds negative for DVT I will reassure him. He likely has a quadricep muscle strain I taught him some stretching exercises. Otherwise I will discharge him in stable condition. Discharge Plan Triage Chief Complaint: Lower Extremity Injury ED Provider: Guru Snow Dx/Rx/DC Orders Clinical Impression: Acute leg pain, Muscle strain Instructions: Treating?Strains and Sprains Prescriptions: No Action pantoprazole [Protonix] 40 mg Tablet,Delayed Release (Dr/Ec) 40 mg PO DAILY metformin 500 mg tablet 500 mg PO DAILY Qty: 30 0RF apixaban 5 mg tablet 5 mg PO BID Qty: 60 2RF Rx Instructions: 2 tabs twice daily for 3 more days, then 1 tab twice daily for 3 months Primary Care Provider: Pedro Owens Referrals: Pedro Owens MD [Primary Care Provider] - 2 Days Disposition Disposition: Home, Self Care
== END 2022-07-17 10:05 | disposition home or self-care (01) ==
PROVIDERS: Emergency Provider Emergency Medicine; PCP Internal Medicine; Visit Provider Emergency Medicine
DX: S86.211A Strain of muscle(s) and tendon(s) of anterior muscle group at lower leg level, right leg, initial encounter (principal); E11.9 Type 2 diabetes mellitus without complications; M79.651 Pain in right thigh; X58.XXXA Exposure to other specified factors, initial encounter; E66.9 Obesity, unspecified; Z68.34 Body mass index [BMI] 34.0-34.9, adult; Z79.84 Long term (current) use of oral hypoglycemic drugs; Z86.16 Personal history of COVID-19; Z87.891 Personal history of nicotine dependence
CPT/HCPCS: 93971; 99282

== ENCOUNTER 2023-01-15 18:47 | Emergency (ER) | payer BC, SELFPAY ==
[2023-01-15 18:47] VITALS: BP 145/74; PULSE 91; RESP 16; TEMP 36.1; O2SAT 95; BMI 36.1
--- NOTE | 2023-01-15 21:05 | EX.ED.VIS.EY ---
HPI History of Present Illness Chief Complaint: Eye Problem Informant: patient and spouse/S.O. Narrative Narrative: Patient presents with left eye irritation that started yesterday morning. He just started as an itch. During the day he noticed he would rub it more. It is a little bit more irritated when bright lights headed. 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 He does not do any grinding or welding or anything that would cause trauma. He states it is possible he could have gotten some dust in it because he was moving some very janeen boxes. He seems to have some mild swelling of the lower lid but not upper lid. He states the eye itself does not hurt. He states when his eyes open it is irritated from the lights but the vision is normal to him. He does not have any visual field cut. He does not have loss of peripheral vision or central vision. He has no headache. He has no nausea vomiting. He has no history of ocular problems. [facility] Medical History Diabetes mellitus, type 2 Former smoker GERD (gastroesophageal reflux disease) Obesity (BMI 30.0-34.9) LILIBETH (obstructive sleep apnea) Home Medications pantoprazole 40 mg tablet,delayed release (Protonix) 40 mg PO DAILY Check with primary doctor 02/05/22 [History Last Taken Unknown] metformin 500 mg tablet 500 mg PO DAILY #30 tabs 02/15/22 [Rx Last Taken Unknown] albuterol sulfate 90 mcg/actuation aerosol inhaler 2 puff inhalation Q4H PRN PRN Wheezing 01/15/23 [History Last Taken Unknown] Allergy/AdvReac Type Severity Reaction Status Date / Time shellfish derived Allergy Severe Angioedema Verified 01/15/23 18:49 Social History Smoking Status: Former smoker ROS ROS ED Constitutional Constitutional ED: Denies chills, fever(s) or subjective Eyes Eyes: Reports other Details: See history of present ; Denies change in vision or diplopia ENT ENT ED: Denies rhinorrhea or sore throat Cardiovascular Cardiovascular: Denies chest pain Respiratory/Chest Respiratory/Chest: Denies cough or dyspnea Gastrointestinal Gastrointestinal: Denies nausea or vomiting Musculoskeletal Musculoskeletal: Denies myalgias Integumentary Denies Abrasions or rash Neurologic Neurologic: Denies headache(s) Endocrine Endocrinology: Denies polydipsia or polyuria Allergic/Immunologic Allergic/Immunologic ED: Denies urticaria EXAM Physical Exam Narrative Exam Narrative: Patient is awake alert sitting comfortably in bed. The room is well lit. He looks nontoxic. He carries on normal conversation. HEENT: No facial rash swelling or tenderness. Negative Dumont sign. No facial anesthesia. No vesicles seen anywhere including forehead nose or ear. Throat is normal. Eyes: The left eye does have a little bit of conjunctival injection. There is mild tearing. No discharge. The lower lid is more irritated and a little bit swollen the upper lid looks normal. I do not see a defined stye but the central portion of the old this lid does look a little bit carpio making me wonder if there is a developing stye. Pupillary responses normal. No pain with bright lights. Range of motion is completely normal. Slit-lamp exam will be done separately. Neck shows no JVD and there is no lymphadenopathy. Breathing is easy and unlabored. Skin shows no rash. Const Vital Signs: 01/15/23 18:47 Temperature 97 F L Temperature Source Temporal Pulse Rate 91 Respiratory Rate 16 Blood Pressure 145/74 H Blood Pressure Mean 97 Pulse Ox 95 Oxygen Delivery Method Room Air MDM MDM MDM Narrative Medical decision making narrative: Slit-lamp exam was done. I put 2 drops of tetracaine 0.5% in the left eye. This provided significant improvement to his symptoms. He no longer has the burning or discomfort. When I pressed on the lower lid. He still had some discomfort with the palpation though. I see a swollen area in the middle of the lower lid and the whole lid has some mild edema. But upper lid looks normal. When I everted the lower lid, I do not see a pointing abscess/stye. But there is fullness in that area that leads me to think that he probably has a developing stye that has not yet matured or come to a point. The eye itself looked normal with slit-lamp. Normal pupillary response. No photophobia. Cornea was not at all cloudy on exam. It looks deep. I put fluorescein in the eye. There is a tiny little abrasion at about the 5:30 position not over the pupil. This is likely from rubbing the eye and not likely the source of all his symptoms. Lawrence sign was negative. No dendritic pattern. I believe this patient's symptoms are likely due to a developing stye in the lower lid. He has some swelling erythema tenderness in that area. It is just not pointing at this point. I will start him on antibiotics. I explained since he is still developing, he should be rechecked by ophthalmology. I do not see any historical or exam indication of glaucoma. He has localized lid pain without eye pain, visual change, headache. His pupil is normal. Chamber looks deep. Discharge Plan Triage Chief Complaint: Eye Problem ED Provider: Eder Loco Dx/Rx/DC Orders Clinical Impression: Sty, internal, Corneal abrasion Instructions: ED Corneal Abrasion, ED Sty Prescriptions: No Action pantoprazole [Protonix] 40 mg Tablet,Delayed Release (Dr/Ec) 40 mg PO DAILY metformin 500 mg tablet 500 mg PO DAILY Qty: 30 0RF albuterol sulfate 90 mcg/actuation HFA aerosol inhaler 2 puff INHALATION Q4H PRN PRN (Reason: Wheezing) Label Comments: inhale 2 puffs by mouth and INTO THE LUNGS every 4 hours if neede... (REFER TO PRESCRIPTION NOTES). Primary Care Provider: Pedro Owens Referrals: Liam Interiano MD [Med Staff - Active Staff] - 1 Day for another exam Pedro Owens MD [Primary Care Provider] - Disposition Disposition: Home, Self Care
[2023-01-15] MEDS: Fluorescein 1 MG STRIP 1 STRIP OPHTHALMIC (21:42)
[2023-01-15] MEDS: Tetracaine 0.5% Ophthalmic Bottle 1 DRP OPHTHALMIC (21:43)
[2023-01-15] MEDS: Erythromycin Base 1 OPTH.TUBE 1 APPLIC LEFT EYE (23:05)
== END 2023-01-15 23:09 | disposition home or self-care (01) ==
PROVIDERS: Emergency Provider Emergency Medicine; PCP Internal Medicine; Visit Provider Emergency Medicine
DX: S05.02XA Injury of conjunctiva and corneal abrasion without foreign body, left eye, initial encounter (principal); E11.9 Type 2 diabetes mellitus without complications; H00.025 Hordeolum internum left lower eyelid; K21.9 Gastro-esophageal reflux disease without esophagitis; Z79.84 Long term (current) use of oral hypoglycemic drugs; Z79.899 Other long term (current) drug therapy; Z87.891 Personal history of nicotine dependence; X58.XXXA Exposure to other specified factors, initial encounter
CPT/HCPCS: 99282

== ENCOUNTER 2023-09-08 18:10 | Emergency (ER) | payer BC, SELFPAY ==
[2023-09-08 18:13] VITALS: BP 139/83; PULSE 91; RESP 18; TEMP 36.3; O2SAT 98; BMI 35.6
--- NOTE | 2023-09-08 18:35 | EDS_ITS ---
HPI History of Present Illness Chief Complaint: Lower Extremity Injury Informant: patient Narrative Narrative: Patient presents with left calf injury. 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 He states it was sore and swollen for couple hours. The area remains tender. His primary concern is a possible blood clot now that pain has been ongoing for couple days. He does have a history of a DVT after having COVID last year. He was only on blood thinners for about 90 days. [facility] Medical History (Updated 09/08/23 @ 19:[address] Yolanda Soto MD) Diabetes mellitus, type 2 Former smoker GERD (gastroesophageal reflux disease) History of DVT (deep vein thrombosis) Obesity (BMI 30.0-34.9) LILIBETH (obstructive sleep apnea) Home Medications pantoprazole 40 mg tablet,delayed release (Protonix) 40 mg PO DAILY Check with primary doctor 02/05/22 [History Last Taken Unknown] metformin 500 mg tablet 500 mg PO DAILY #30 tabs 02/15/22 [Rx Last Taken Unknown] albuterol sulfate 90 mcg/actuation aerosol inhaler 2 puff inhalation Q4H PRN PRN Wheezing 01/15/23 [History Last Taken Unknown] Allergy/AdvReac Type Severity Reaction Status Date / Time shellfish derived Allergy Severe Angioedema Verified 09/08/23 18:11 Social History Smoking Status: Former smoker ROS ROS ED Constitutional Constitutional ED: Denies chills or fever(s) Eyes Eyes: Denies discharge from eye(s) ENT ENT ED: Denies discharge from eye(s) or sore throat Cardiovascular Cardiovascular: Denies chest pain or palpitations Respiratory/Chest Respiratory/Chest: Denies cough Gastrointestinal Gastrointestinal: Denies abdominal pain, nausea or vomiting Musculoskeletal Musculoskeletal: Reports extremity pain; Denies back pain Integumentary Denies Abrasions or rash Neurologic Neurologic: Denies headache(s) or weakness Psychiatric Psychiatric: Denies anxiety or depression Allergic/Immunologic Allergic/Immunologic ED: Denies lip swelling or urticaria EXAM Physical Exam Const Vital Signs: 09/08/23 18:13 Temperature 97.4 F L Temperature Source Temporal Pulse Rate 91 Respiratory Rate 18 Blood Pressure 139/83 H Blood Pressure Mean 101 Pulse Ox 98 Oxygen Delivery Method Room Air Positive well nourished and well developed General Appearance ED: well developed Eyes EOMs intact bilaterally Chest Wall inspection of chest normal and palpation of chest normal Resp normal respiratory effort and clear to auscultation bilaterally Cardio regular rate and regular rhythm GI non-tender Palpation: soft Extremity Extremity Narrative: Mild soft tissue tenderness over the posterior inferior calf on the left. Slight ecchymosis. No bony tenderness over the anterior smith. Good distal pulses. Full range of motion of the ankle and knee. Neuro oriented x3 and no sensory deficits noted Motor Exam: strength 5/5 throughout Psych mental status grossly normal MDM MDM MDM Narrative Medical decision making narrative: Venous ultrasound of the left lower extremity obtained to evaluate for DVT. Radiography Diagnostic Testing: Clinical Impression(s) from Imaging Studies Venous Duplex 09/08/23 18:44 IMPRESSION: Normal left lower extremity duplex venous ultrasound. Electronically Signed: Yeison Boyce MD at 19:48 EDT , Treatment and Re-Evaluation :: Venous ultrasound reveals no evidence of DVT or other acute abnormality. Patient is reassured with the finding. Return instructions given. Discharge Plan Triage Chief Complaint: Lower Extremity Injury ED Provider: Yolanda Soto Dx/Rx/DC Orders Clinical Impression: Contusion of left leg Instructions: ED Contusion, Lower Extremity Prescriptions: No Action pantoprazole [Protonix] 40 mg Tablet,Delayed Release (Dr/Ec) 40 mg PO DAILY metformin 500 mg tablet 500 mg PO DAILY Qty: 30 0RF albuterol sulfate 90 mcg/actuation HFA aerosol inhaler 2 puff INHALATION Q4H PRN PRN (Reason: Wheezing) Patient Comments: inhale 2 puffs by mouth and INTO THE LUNGS every 4 hours if neede... (REFER TO PRESCRIPTION NOTES). Primary Care Provider: Pedro Owens Referrals: Pedro Owens MD [Primary Care Provider] - 1 Week if not improving Disposition Disposition: Home, Self Care
--- NOTE | 2023-09-08 18:44 | US_ITS ---
EXAM: US DUPLEX LEFT LOWER EXTREMITY VEINS CLINICAL INDICATION: -- PAIN TECHNIQUE: Real-time duplex ultrasound scan of the left lower extremity veins integrating B-mode two-dimensional vascular structure, Doppler spectral analysis, color flow Doppler imaging and compression. COMPARISON: No relevant prior studies available. FINDINGS: DEEP VEINS: Unremarkable. No DVT in the visualized common femoral, femoral, proximal deep femoral or popliteal veins. The veins demonstrate normal color flow, are normally compressible, with normal phasic flow and/or augmentation response. SUPERFICIAL VEINS: Unremarkable. No thrombus in the visualized great saphenous vein. SOFT TISSUES: No acute findings. No popliteal cyst. US/Venous Duplex Imag/Limited/Uni IMPRESSION: Normal left lower extremity duplex venous ultrasound. Electronically Signed: Yeison Boyce MD at 19:48 EDT ,
== END 2023-09-08 20:00 | disposition home or self-care (01) ==
PROVIDERS: Emergency Provider Emergency Medicine; PCP Internal Medicine; Visit Provider Emergency Medicine
DX: S80.12XA Contusion of left lower leg, initial encounter (principal); G47.33 Obstructive sleep apnea (adult) (pediatric); Z87.891 Personal history of nicotine dependence; Z86.16 Personal history of COVID-19; Z86.718 Personal history of other venous thrombosis and embolism; X58.XXXA Exposure to other specified factors, initial encounter
CPT/HCPCS: 93971; 99282

== ENCOUNTER 2024-02-22 06:25 | Emergency (ER) | payer BC, SELFPAY ==
[2024-02-22 06:25] VITALS: BP 145/71; PULSE 69; RESP 18; TEMP 36.6; O2SAT 97; BMI 37.9
--- NOTE | 2024-02-22 06:45 | RAD_ITS ---
EXAM: XR LEFT WRIST COMPLETE, 3 OR MORE VIEWS CLINICAL INDICATION: injury TECHNIQUE: Frontal, lateral and oblique views of the left wrist. COMPARISON: No relevant prior studies available. FINDINGS: BONES/JOINTS: Unremarkable. No acute fracture. No subluxation. Normal alignment. Preservation of the joint space. No sclerotic or destructive changes observed. SOFT TISSUES: Unremarkable. No soft tissue swelling or gas. No radiopaque foreign body. RAD/Wrist min 3 Views IMPRESSION: Negative left wrist x-rays. Electronically Signed: Rudolph Guerrier MD at 7:25 EDT ,
--- NOTE | 2024-02-22 06:46 | EDS_ITS ---
HPI History of Present Illness Chief Complaint: Upper Extremity Injury Informant: patient Narrative Narrative: Patient presents with an initial injury to his left wrist 2 weeks ago. He states he was not paying attention and walked into a wall injuring his left wr ist. He had pain to the area for a few days. He now continues to have sharp shooting pain up the radial side of his left forearm and into his thumb. He states he will find himself waking up at night with pain and tingling. He is right-hand dominant. Patient is a diabetic. He states his sugars have been under good control, rarely ever going over 120. He does report he started to get some intermittent tingling in his feet and right hand as well and is wonder if he might be developing neuropathy. [facility] Medical History Diabetes mellitus, type 2 Former smoker GERD (gastroesophageal reflux disease) History of DVT (deep vein thrombosis) Obesity (BMI 30.0-34.9) LILIBETH (obstructive sleep apnea) Home Medications pantoprazole 40 mg tablet,delayed release (Protonix) 40 mg PO DAILY Check with primary doctor 02/05/22 [History Last Taken Unknown] metformin 500 mg tablet 500 mg PO DAILY #30 tabs 02/15/22 [Rx Last Taken Unknown] albuterol sulfate 90 mcg/actuation aerosol inhaler 2 puff inhalation Q4H PRN PRN Wheezing 01/15/23 [History Last Taken Unknown] prednisone 20 mg tablet 40 mg (2 x 20 mg) PO DAILY #6 tabs 02/22/24 [Rx Last Taken Unknown] Allergy/AdvReac Type Severity Reaction Status Date / Time shellfish derived Allergy Severe Angioedema Verified 09/08/23 18:11 Social History Smoking Status: Former smoker ROS ROS ED Constitutional Constitutional ED: Denies chills or fever(s) Eyes Eyes: Denies discharge from eye(s) ENT ENT ED: Denies discharge from eye(s), rhinorrhea or sore throat Cardiovascular Cardiovascular: Denies chest pain or palpitations Respiratory/Chest Respiratory/Chest: Denies cough or dyspnea Gastrointestinal Gastrointestinal: Denies abdominal pain, diarrhea, nausea or vomiting Genitourinary Genitourinary ED: Denies difficulty urinating or dysuria Musculoskeletal Musculoskeletal: Reports extremity pain; Denies back pain Integumentary Denies Abrasions or rash Neurologic Neurologic: Reports paresthesias; Denies headache(s) or weakness Allergic/Immunologic Allergic/Immunologic ED: Denies lip swelling or urticaria EXAM Physical Exam Const Vital Signs: 02/22/24 06:25 Temperature 97.8 F Temperature Source Oral Pulse Rate 69 Respiratory Rate 18 Blood Pressure 145/71 H Blood Pressure Mean 95 Pulse Ox 97 Oxygen Delivery Method Room Air Positive well nourished and well developed General Appearance ED: well developed HEENT Reports moist mucous membranes Eyes EOMs intact bilaterally Chest Wall inspection of chest normal and palpation of chest normal Resp normal respiratory effort and clear to auscultation bilaterally Cardio regular rate and regular rhythm Extremity Extremity Narrative: Mild tenderness ovation of the radial side of the left wrist. No obvious edema. Good range of motion of all digits. Good cap refill and sensation on testing. No tenderness at the elbow or shoulder. Neuro oriented x3 and moves all extremities MDM MDM MDM Narrative Medical decision making narrative: Left wrist x-ray was obtained to evaluate for any bony injury. Left wrist x-ray per my interpretation feels no evidence of bony fracture. Patient be treated with a course of steroids and placed in a cock up wrist splint. He is referred to orthopedics for follow-up. Discharge Plan Triage Chief Complaint: Upper Extremity Injury ED Provider: Yolanda Soto Dx/Rx/DC Orders Clinical Impression: Neuropathy, Left wrist sprain Instructions: ED Neuropathy, Peripheral, ED Wrist Sprain Prescriptions: New prednisone 20 mg tablet 40 mg PO DAILY Qty: 6 0RF No Action pantoprazole [Protonix] 40 mg Tablet,Delayed Release (Dr/Ec) 40 mg PO DAILY metformin 500 mg tablet 500 mg PO DAILY Qty: 30 0RF albuterol sulfate 90 mcg/actuation HFA aerosol inhaler 2 puff INHALATION Q4H PRN PRN (Reason: Wheezing) Patient Comments: inhale 2 puffs by mouth and INTO THE LUNGS every 4 hours if neede... (REFER TO PRESCRIPTION NOTES). Primary Care Provider: Pedro Owens Referrals: Derrell Hannon MD [Med Staff - Active Staff] - 1-2 Weeks Pedro Owens MD [Primary Care Provider] - Disposition Disposition: Home, Self Care
[2024-02-22] MEDS: predniSONE 20 MG Tablet 60 MG PO (07:34)
[2024-02-22 07:35] VITALS: RESP 16
== END 2024-02-22 07:38 | disposition home or self-care (01) ==
PROVIDERS: Emergency Provider Emergency Medicine; PCP Internal Medicine; Visit Provider Emergency Medicine
DX: E11.40 Type 2 diabetes mellitus with diabetic neuropathy, unspecified (principal); S63.502A Unspecified sprain of left wrist, initial encounter; G47.33 Obstructive sleep apnea (adult) (pediatric); Z87.891 Personal history of nicotine dependence; X58.XXXA Exposure to other specified factors, initial encounter
CPT/HCPCS: 73110; 99283

== ENCOUNTER 2025-08-12 16:29 | Emergency (ER) | payer BC, SELFPAY ==
[2025-08-12] VITALS (8 sets, daily range): BP systolic 104–128; BP diastolic 61–76; PULSE 80–93; RESP 13–18; TEMP 36.2–36.8; O2SAT 96–98; BMI 34.7
--- NOTE | 2025-08-12 16:34 | EKG12_ITS ---
Test Reason : CP Blood Pressure : */* mmHG Vent. Rate : 86 BPM Atrial Rate : 86 BPM P-R Int : 138 ms QRS Dur : 84 ms QT Int : 354 ms P-R-T Axes : 42 20 13 degrees QTcB Int : 423 ms Normal sinus rhythm Nonspecific ST and T wave abnormality Abnormal ECG When compared with ECG of 04-Feb-2022 22:23, No significant change was found Confirmed by Rudolph Mars ([id number]), editor in chief LILA AMBRIZ ([id number]) on 08/16/2025 5:48:08 AM Referred By: Confirmed By: Rudolph Mars
--- NOTE | 2025-08-12 17:25 | RAD_ITS ---
PROCEDURE: CHEST 1 VIEW (PORTABLE) 08/12/2025 REASON FOR EXAM: CHEST PAIN TECHNIQUE: Frontal view of the chest. COMPARISON: 02/09/2022 FINDINGS: Lungs/Pleura: Clear. No pneumothorax or sizable pleural effusion. Heart/Mediastinum: Normal in size. No vascular congestion. Bones/Soft tissues: Unremarkable. RAD/Chest 1 View (Portable) IMPRESSION: No acute cardiopulmonary disease. Reading Location: [facility]
--- NOTE | 2025-08-12 17:27 | EDS_ITS ---
HPI History of Present Illness Chief Complaint: Chest Pain Informant: patient Onset/Context/Timing Onset: Days (2) Activity at onset: sudden Timing: Continuous Quality: Positive for Burning and Pressure Location: Substernal and Left Parasternal Worsened By: Eating (Swallowing) Relieved By: Nothing Associated Symptoms: Positive for Acid Reflux; Negative for Nausea, Vomiting, Diaphoresis, Dyspnea, Cough, Fever, Lightheadedness or Palpitations Narrative Narrative: Patient presents with chest pain that has been constant for the past 2 days. Patient states it is worse whenever he eats and swallows anything. Patient describes it as a pressure and burning. Patient states it feels like there is a pocket of air in his lower chest after eating. Patient states it is constant. Patient states nothing makes it better. Patient states he has been taking his Protonix with no improvement. Patient denies any fevers or chills. Patient denies any nausea or vomiting. Patient denies any shortness of breath or cough. CVD Risk Factors: Negative for Hypertension, Diabetes, Hypercholesterolemia, Family History 1' </=55 or Smoking PE Risk Factors: Positive for Prior DVT or PE; Negative for Recent Travel/Surgery, Recent Immobilization, Cancer or OCP + Smoking + >/=35 PFSH PFSH Medical History Wartenberg syndrome History of DVT (deep vein thrombosis) Diabetes mellitus, type 2 Obesity (BMI 30.0-34.9) LILIBETH (obstructive sleep apnea) GERD (gastroesophageal reflux disease) Former smoker Home Medications ?Medication ?Instructions ?Recorded ?Last Taken ?Type pantoprazole 40 mg tablet,delayed 40 mg PO DAILY Check with primary 02/05/22 Unknown History release (Protonix) doctor albuterol sulfate 90 mcg/actuation 2 puff inhalation Q 4H PRN PRN 01/15/23 Unknown History aerosol inhaler Wheezing Allergy/AdvReac Type Severity Reaction Status Date / Time shellfish derived Allergy Severe Angioedema Verified 08/12/25 16:30 Social History household members: spouse and children Smoking Status: Former smoker ROS ROS ED Constitutional Constitutional ED: Denies chills or fever(s) Eyes Eyes: Denies blurry vision or change in vision ENT ENT ED: Reports ear pain left and sore throat; Denies rhinorrhea Cardiovascular Cardiovascular: Reports chest pain and racing heartbeat; Denies palpitations Respiratory/Chest Respiratory/Chest: Denies cough or dyspnea Gastrointestinal Gastrointestinal: Denies nausea or vomiting Genitourinary Genitourinary ED: Denies dysuria or hematuria Musculoskeletal Musculoskeletal: Denies back pain or neck pain Integumentary Denies abscess or rash Neurologic Neurologic: Denies headache(s) or weakness Allergic/Immunologic Allergic/Immunologic ED: Denies mouth swelling or urticaria EXAM Physical Exam Const Vital Signs: 08/12/25 16:30 08/12/25 17:19 08/12/25 17:20 Temperature 97.2 F L Temperature Source Temporal Pulse Rate 93 Respiratory Rate 18 Respiratory Effort Normal Blood Pressure 128/72 H Blood Pressure Mean 90 Pulse Ox 98 97 Oxygen Delivery Method Room Air Room Air 08/12/25 17:53 08/12/25 17:58 08/12/25 18:00 Temperature Temperature Source Pulse Rate 80 92 83 Respiratory Rate 16 16 Respiratory Effort Blood Pressure 128/72 H 114/61 104/65 Blood Pressure Mean 78 78 Pulse Ox 97 97 Oxygen Delivery Method Room Air Room Air 08/12/25 19:00 08/12/25 20:00 Temperature Temperature Source Pulse Rate 89 83 Respiratory Rate 16 13 Respiratory Effort Blood Pressure 113/76 126/67 H Blood Pressure Mean 88 86 Pulse Ox 98 96 Oxygen Delivery Method Positive well nourished and well developed General Appearance ED: well developed and NAD HEENT Reports moist mucous membranes Neck supple and no JVD Chest Wall inspection of chest normal and palpation of chest normal Resp normal respiratory effort and clear to auscultation bilaterally Cardio regular rate and regular rhythm Extremity normal to inspection General Extremety ED: Negative for edema or tenderness General Extremity: Negative for edema Neuro oriented x3, CN's II-XII intact bilaterally and no sensory deficits noted Sensorium / Orientation: awake and alert Motor Exam: strength 5/5 throughout Psych mental status grossly normal Heart Score History: Slightly/Non-Suspicious ECG: Nonspecific Repolarization Age: >45 - <65 years Risk Factors: No Risk Factors Troponin: </= Normal Limit Score: 2 MDM MDM MDM Narrative Medical decision making narrative: Differential diagnosis includes cardiac dysrhythmia, cardiac ischemia, pneumonia, bronchitis, gastroesophageal reflux disease, electrolyte abnormality, dehydration, viral illness, and anxiety. EKG will be obtained to assess for cardiac dysrhythmia and cardiac ischemia. Chest x-ray will be obtained to assess for pneumonia or bronchitis. CBC will be obtained to assess for leukocytosis and anemia. Basic metabolic profile will be obtained to assess for electrolyte abnormality and renal function. High-sensitivity troponin will be obtained to assess for cardiac ischemia. 2-hour repeat high-sensitivity troponin will be obtained to assess for ongoing cardiac ischemia. Lab Data Attestation: I reviewed the patient's lab results. Lab results narrative: CBC was reviewed and was within normal limits. Basic metabolic profile was reviewed and was within normal limits. Initial high-sensitivity troponin was reviewed and was normal at 8. 2-hour repeat high-sensitivity troponin was reviewed and was normal at 7. Lipase was reviewed and was normal at 33. Labs: Laboratory Results - last 24 hr 08/12/25 08/12/25 17:15 18:47 WBC 9.0 RBC 4.85 Hgb 14.4 Hct 41.6 MCV 85.8 MCH 29.7 MCHC 34.6 RDW Std Deviation 42.2 RDW Coeff of Wes 13.6 Plt Count 181 MPV 9.2 Immature Gran % (Auto) 0.200 Neut % (Auto) 77.0 H Lymph % (Auto) 14.9 L [place] % (Auto) 5.5 Eos % (Auto) 2.2 Baso % (Auto) 0.2 Absolute Neuts (auto) 6.9 Absolute Lymphs (auto) 1.34 Nucleated RBC % 0 Sodium 138 Potassium 4.0 Chloride 104 Carbon Dioxide 22.0 Anion Gap 12 BUN 8 Creatinine 1.06 Estim Creat Clear Calc 104.81 Est GFR (MDRD) Non-Af 88 BUN/Creatinine Ratio 7.2 L Glucose 142 H Calcium 9.3 Troponin T High Sens 8 Troponin T Hi Sens 2 Hr 7 Lipase 33 Radiography Chest X-Ray - ED: 1 View, Read by ED Physician, Read by Radiologist and No Acute Disease Diagnostic Testing: Clinical Impression(s) from Imaging Studies Chest X-Ray 08/12/25 17:25 IMPRESSION: No acute cardiopulmonary disease. Reading Location: [facility] Portable 1 view chest x-ray was obtained. On my independent interpretation, lung ledezma are clear. There is normal cardiac silhouette. Bony thorax is normal. There is no acute process noted. Radiologist also interpreted the x- ray and agrees. EKG Initial EKG: Attestation: I personally reviewed and interpreted this EKG as follows: Interpretation: Sinus Rhythm (86) Comments: EKG was obtained. On my independent interpretation, it showed a normal sinus rhythm with a rate of 86. VT interval, QRS interval, and QTc intervals were all normal. [place] was normal. There are nonspecific ST-T wave changes. Prior EKG tracings: available for review Prior: Unchanged (02/04/2022) Treatment and Re-Evaluation :: Patient was given aspirin. Patient was given GI cocktail. Patient is feeling better on reevaluation. Patient has a HEART score of 2. Patient was advised that this is low risk for acute cardiac event. Patient was advised that this could be gastroesophageal reflux disease. Patient was instructed to continue his Protonix. Patient instructed to follow-up with his primary care physician in 5 to 7 days. Patient was instructed return if worse in any way. Patient understood and was agreeable with the plan. All questions were answered. Discharge Plan Triage Chief Complaint: Chest Pain ED Provider: Kofi Rodrigues Dx/Rx/DC Orders Clinical Impression: Chest pain, Elevated blood pressure reading without diagnosis of hypertension Instructions: ED Chest Pain, Uncertain Cause Prescriptions: No Action pantoprazole [Protonix] 40 mg Tablet,Delayed Release (Dr/Ec) 40 mg PO DAILY albuterol sulfate 90 mcg/actuation HFA aerosol inhaler 2 puff INHALATION Q4H PRN PRN (Reason: Wheezing) Patient Comments: inhale 2 puffs by mouth and INTO THE LUNGS every 4 hours if neede... (REFER TO PRESCRIPTION NOTES). Primary Care Provider: Pedro Owens Referrals: Pedro Owens MD [Primary Care Provider] - 5-7 Days Print Language: Cameroonian Disposition Disposition: Home, Self Care
[2025-08-12 17:31] LABS: Hematocrit 41.6 % (40-54); Hemoglobin 14.4 g/dL (13.0-16.5); Immature Granulocytes Count 0.020 X10^3/uL (0.0-0.0); Mean Corp Hgb Conc 34.6 g/dL (32-36); Mean Corpuscular Volume 85.8 fL (80-94); Mean Platelet Vol. 9.2 fl (6.2-12.0); NRBC Flagged by Analyzer 0 % (0-5); Platelet Count 181 K/mm3 (150-450); RBC Distribution Width CV 13.6 % (11.6-14.6); RBC Distribution Width SD 42.2 fl (35.1-43.9); Red Blood Count 4.85 M/mm3 (4.6-6.2); White Blood Count 9.0 K/mm3 (4.4-11.0)
[2025-08-12 17:48] LABS: Anion Gap 12 (5-15); BUN 8 mg/dL (4-19); BUN/Creat Ratio 7.2 RATIO (10-20); Calcium,Total 9.3 mg/dL (7.6-11.0); Carbon Dioxide 22.0 mmol/L (21.0-32.0); Chloride 104 mmol/L (98-108); Estimated Creatinine Clearance 104.81 ml/min (50-250); Glucose 142 mg/dL (70-99); Potassium 4.0 mmol/L (3.3-5.1); Troponin T High Sensitivity 8 ng/L (<=22)
[2025-08-12] MEDS: Nitroglycerin SL (ED/IMG/CATH) 0.4 MG TABLET SL (17:53)
[2025-08-12] MEDS: Lidocaine 2% Viscous15 ML UDC 15 ML PO (17:54)
[2025-08-12 19:22] LABS: Lipase 33 U/L (13-75)
[2025-08-12 19:45] LABS: Troponin T High Sens 2 HR 7 ng/L (<=22)
== END 2025-08-12 20:57 | disposition home or self-care (01) ==
PROVIDERS: Emergency Provider Emergency Medicine; PCP Internal Medicine; Visit Provider Emergency Medicine
DX: R07.89 Other chest pain (principal); E11.9 Type 2 diabetes mellitus without complications; R03.0 Elevated blood-pressure reading, without diagnosis of hypertension; K21.9 Gastro-esophageal reflux disease without esophagitis; E66.9 Obesity, unspecified; Z86.718 Personal history of other venous thrombosis and embolism; Z87.891 Personal history of nicotine dependence
CPT/HCPCS: 71045; 80048; 83690; 84484; 85025; 93005; 99283; A4216